=== PATIENT | male | born 1940 | race Hispanic/Latino ===

== ENCOUNTER 2016-07-16 21:16 | Inpatient (IN) | payer OTHER ==
[2016-07-17] MEDS: Insulin Detemir 100 units/ml Vial (Levemir) SC SCH ×3 (00:33→21:40)
[2016-07-17 00:52] VITALS: BMI 25.9
[2016-07-17] MEDS: Pantoprazole 40 mg EC Tab PO SCH (06:05)
[2016-07-17] MEDS: Levothyroxine 25 MCG TAB PO SCH (06:05)
[2016-07-17] MEDS: Insulin Lispro 1 UNITS/0.01 ML SC SCH ×3 (07:04→17:49)
[2016-07-17 07:52] LABS: ADD MANUAL DIFF? NO
[2016-07-17 07:57] LABS: BASO # 0.05 K/mm3 (0.0-2.0); BASO % 0.8 % (0.0-3.0); EOS # 0.1 (0.0-0.7); EOS % 1.2 % (1.5-5.0); GRAN # 4.23 (1.4-6.5); GRAN % 65.3 % (50.0-68.0); HEMATOCRIT 34.8 % (42.0-52.0); LYMPH # 1.2 (1.2-3.4); LYMPH % 18.7 % (22.0-35.0); MEAN CELL VOLUME 87.9 fL (80.0-105.0); MEAN CORPUSCULAR HEMOGLOBIN 29.3 pg (25.0-35.0); MEAN CORPUSCULAR HGB CONC 33.3 g/dl (31.0-37.0); MEAN PLATELET VOLUME 9.9 fl (7.0-11.0); MONO # 0.9 (0.1-0.6); PLATELET COUNT 436 10^3/uL (120.0-450.0); RED CELL DISTRIBUTION WIDTH 14.8 % (11.5-14.5); WHITE BLOOD COUNT 6.5 10^3/ul (4.5-11.0)
[2016-07-17 08:09] LABS: ALB/GLOB RATIO 0.8 (1.1-1.8); BILIRUBIN,TOTAL 1.3 mg/dL (0.2-1.3); CALCIUM 8.6 mg/dL (8.4-10.5); POTASSIUM 4.8 mmol/L (3.6-5.0); TOTAL PROTEIN 6.7 g/dL (5.8-8.3)
[2016-07-17 08:15] LABS: INR 1.75 (0.93-1.08)
[2016-07-17] MEDS: Multivitamin Therapeutic Tab PO SCH (09:01)
--- NOTE | 2016-07-17 09:51 | RAD ---
HISTORY: Pl. effusions s/p AVR/CABG COMPARISON: No prior. FINDINGS: LUNGS: No pulmonary infiltrate PLEURA: Small left pleural effusion. No evidence of right pleural effusion. No pneumothorax. CARDIOVASCULAR: Normal heart size. Status post CABG. Permanent pacemaker. No congestive change. OSSEOUS STRUCTURES: No significant abnormalities. VISUALIZED UPPER ABDOMEN: Normal. OTHER FINDINGS: None. IMPRESSION: Small left pleural effusion.
[2016-07-17] MEDS ORDERED: Morphine 2 mg/ml ISec IM PRN (10:00)
--- NOTE | 2016-07-17 12:36 | CARD ---
APPROVED REPORT EKG Measurement Heart [id number] <Conclusion> Sinus rhythm with 1st degree AV block Nonspecific intraventricular block Cannot rule out Anterior infarct, age undetermined Abnormal ECG
[2016-07-18] MEDS: Levothyroxine 25 MCG TAB PO SCH (05:16)
[2016-07-18] MEDS: Pantoprazole 40 mg EC Tab PO SCH (05:31)
[2016-07-18] MEDS: Insulin Detemir 100 units/ml Vial (Levemir) SC SCH ×2 (06:48→22:20)
[2016-07-18] MEDS: Insulin Lispro 1 UNITS/0.01 ML SC SCH ×2 (06:48→18:21)
--- NOTE | 2016-07-18 09:05 | HP ---
CHIEF COMPLAINT: Generalized weakness and deconditioning. HISTORY OF PRESENT ILLNESS: A 76-year-old male with history of coronary artery disease and severe aortic stenosis who was transferred from [facility] in [place] for treatment after recent coronary bypass surgery, transcatheter aortic valve replacement, and pacemaker placement 2 weeks ago. The patient is feeling better, but continues with generalized weakness and upper body pain related to his surgery. The patient experienced some exertional dyspnea. He denies any cough, fever, chest pain. PAST MEDICAL HISTORY: Coronary artery disease, severe aortic stenosis, episode of cardiac arrhythmia during hospitalization after surgery, type 2 diabetes mellitus, hypertension, chronic kidney disease stage III, solitary kidney. PAST SURGICAL HISTORY: Status post recent coronary bypass surgery, aortic valve replacement, and pacemaker placement. ALLERGIES: KNOWN ALLERGIES FOR CODEINE. CURRENT MEDICATIONS: Long-acting insulin, Levemir, and short-acting Humalog 3 times a day, Coumadin, ____ aspirin, metoprolol 25 mg twice a day, pantoprazole 40 mg daily, L-thyroxine 25 mcg daily, and multivitamins. FAMILY HISTORY: Noncontributory. SOCIAL HISTORY: The patient denies any history of smoking, alcohol, or any drug use. The patient is retired. He lives with family. He is independent of activity of daily living. REVIEW OF SYSTEMS: The patient denies any loss of appetite, weight loss, headache, or fever. He denies any dysphagia, sore throat, nasal congestion. He denies any cough, wheezing, but complains of exertional dyspnea and some anterior chest wall pain. He denies any heart palpitations. The patient denies any abdominal pain, nausea, vomiting, diarrhea. He has recent constipation. He has history of urinary retention, but currently is urinating with no problems. He denies any hematuria or flank pain. He denies any joint pains, joint swelling, or edema. He denies any headache, dizziness, weakness, or blurry vision. The patient complains of anxiety and difficulty of sleeping, but denies any depression or suicidal thoughts. PHYSICAL EXAMINATION: VITAL SIGNS: Stable with temperature this morning 99.7. His respiratory rate 18. His oxygen saturation was 92% on room air. GENERAL: He is comfortable in bed, alert, awake, oriented. HEAD: Normocephalic, atraumatic. EYES: Pupils reactive to light. Oral mucosa is moist. NECK: Supple. No neck masses. CHEST: With anterior chest wall scar healed, and left upper anterior chest bruising at the site of pacemaker. HEART: Regular rhythm and rate. ABDOMEN: Soft, nontender, nondistended. EXTREMITIES: With no edema. NEUROLOGIC: With no sensory or motor deficits. DIAGNOSTIC TESTS: This morning, CBC with WBC 6.5, hemoglobin 11.6, hematocrit 34.8. Chemistry with sodium 129, potassium 4.8. His BUN is 43 and creatinine 1.7. His glucose ranges between 150-300. His liver enzymes are slightly elevated with AST 91 and ALT 98. His TSH was 5.1. EKG showed sinus rhythm with first-degree AV block, nonspecific intraventricular block, and ST changes. Chest x-ray showed mild left pleural effusion. No evidence of right pleural effusion and normal heart size. No infiltrations. ASSESSMENT: 1. A 76-year-old male status post recent coronary bypass surgery, and recent aortic valve replacement and pacemaker placement, and admitted for rehabilitation. 2. Type 2 diabetes mellitus. 3. Chronic kidney disease, stage III. 4. Hypertension. 5. Hyponatremia. PLAN OF TREATMENT: The patient will be maintained on his chronic medication. We will monitor his glucose, maintain long-acting and short-acting insulin. The patient will be maintained on metoprolol, aspirin, and Coumadin. We will monitor his INRs daily. Advised fluid restriction to improve his sodium. We will continue rehabilitation with exercise daily. Abiola Sparks MD cc: [id number] TT: 07/18/2016 09:04:38 jn MTDD
[2016-07-18 09:19] LABS: INR 2.05 (0.93-1.08)
[2016-07-18 09:20] LABS: ALB/GLOB RATIO 0.8 (1.1-1.8); CALCIUM 9.1 mg/dL (8.4-10.5); POTASSIUM 4.4 mmol/L (3.6-5.0); TOTAL PROTEIN 7.2 g/dL (5.8-8.3)
[2016-07-18] MEDS: Multivitamin Therapeutic Tab PO SCH (10:53)
--- NOTE | 2016-07-18 13:12 | PN ---
DATE: 07/18/2016 SUBJECTIVE: The patient is seen sitting in a chair on the TCU. He is somnolent, but arousable. He states he is feeling better with improved stamina. CURRENT MEDICATIONS: Include aspirin, Colace, Coumadin, Flomax, insulin, metoprolol 25 mg b.i.d., Pr otonix, Synthroid and Xanax p.r.n. OBJECTIVE: GENERAL: He is an elderly man who appears comfortable at the present time. VITAL SIGNS: His blood pressure is 116/70. The pulse is 70. Respirations are 16. He is afebrile. HEENT: No JVD. CHEST: A few scattered rhonchi noted. Diminished breath sounds noted at the left base. HEART: PMI is in normal position with a systolic murmur at the left sternal border. ABDOMEN: Soft, nontender, normoactive bowel sounds. EXTREMITIES: No edema. DIAGNOSTIC DATA: Potassium 4.4, sodium is 131, BUN and creatinine are 47 and 1.7 with a glucose of 1 20. INR is 2.05. IMPRESSION: 1. Coronary artery disease and aortic stenosis, status post recent bypass surgery and aortic valve r eplacement. 2. Bradycardia-tachycardia syndrome, status post permanent pacemaker implant. 3. Paroxysmal atrial fibrillation. 4. Chronic renal insufficiency. 5. History of diabetes and hypertension. RECOMMENDATIONS: His current management should continue. Increased exercise is advisable. An INR o f between 2.0 and 3.0 is advised. We will continue to follow along and make further recommendations as appropriate. Mike Modi MD cc: [phone] TT: 07/18/2016 13:11:44 Confirmation # [id number] Dictation # [id number] sn
--- NOTE | 2016-07-18 17:26 | PN ---
DATE: 07/18/2016 The patient remains in transitional care unit. The patient is feeling better. He denies any chest pain. The patient is tolerating physical therapy. His appetite is good. He denies any abdominal pain. PHYSICAL EXAMINATION: VITAL SIGNS: The patient is afebrile, temperature 98.1, pulse 72, regular, blood pressure 117/71 and respiratory rate 18. GENERAL: He is comfortable, in reclining chair, alert, awake, oriented. HEENT: Head normocephalic, atraumatic. Oral mucosa is moist. NECK: Supple. LUNGS: With decreased breath sounds in left base, no rales or crackles. HEART: With regular rhythm and rate. ABDOMEN: Soft, nontender, nondistended. EXTREMITIES: With no edema. DIAGNOSTIC TESTS: CBC stable. Chemistry with improved sodium 131, potassium 4.4. Renal function is stable with BUN 47, creatinine 1.7. His glucose is fluctuating between 130 and 360. The patient has mildly elevated liver enzymes , AST 99 and ALT 120. ASSESSMENT: 1. Status post coronary bypass surgery, recent aortic valve replacement and pacemaker placement. Hemodynamically stable. 2. Type 2 diabetes mellitus. 3. Chronic kidney disease stage III. 4. Elevated liver enzymes, etiology uncertain, possibly due to medication. 5. Hyponatremia. PLAN OF TREATMENT: Continue physical therapy. Maintain Coumadin dose 4 mg daily. Will monitor his electrolytes and liver enzymes. Reviewed his medication. Abiola Sparks MD cc: [phone] TT: 07/18/2016 17:26:18 Confirmation # [id number] Dictation # [id number] en MTDD
[2016-07-19] MEDS: Levothyroxine 25 MCG TAB PO SCH (05:23)
[2016-07-19] MEDS: Pantoprazole 40 mg EC Tab PO SCH (05:24)
[2016-07-19] MEDS: Insulin Detemir 100 units/ml Vial (Levemir) SC SCH ×2 (06:34→22:55)
[2016-07-19 06:50] LABS: HEMATOCRIT 35.4 % (42.0-52.0); MEAN CELL VOLUME 89.4 fL (80.0-105.0); MEAN CORPUSCULAR HEMOGLOBIN 29.8 pg (25.0-35.0); MEAN CORPUSCULAR HGB CONC 33.3 g/dl (31.0-37.0); MEAN PLATELET VOLUME 9.8 fl (7.0-11.0); RED CELL DISTRIBUTION WIDTH 14.9 % (11.5-14.5); WHITE BLOOD COUNT 8.9 10^3/ul (4.5-11.0)
[2016-07-19 06:57] LABS: INR 2.31 (0.93-1.08)
--- NOTE | 2016-07-19 07:07 | CP.PCM.PN ---
Subjective - Date & Time of Evaluation Date of Evaluation: 07/17/16 Time of Evaluation: 07:00 - Subjective Subjective: Transferred from [facility] to TCU yesterday. S/P AVR/CABG 06/25/16. Multiple post-op complications. No sedated on TCU, got Xanax. at 6 AM V/S noted. PE: Lungs: decreased BS at bases Cor.: S1S2, sys. murmur Abd.: soft Ext.; no edema Neuro.: sedated but arousable Labs noted. Na + = 129, INR = 1.75, Cr.= 1.7, FSBS 140 Objective - Vital Signs/Intake and Output Vital Signs (last 24 hours): Temp Pulse Resp BP Pulse Ox 99.7 F H 73 18 148/75 07/17/16 00:34 07/17/16 08:38 07/17/16 00:34 07/17/16 08:38 Intake and Output: 07/17/16 07/17/16 06:59 18:59 Intake Total 120 Output Total 200 Balance -80 - Medications Medications: Current Medications Acetaminophen (Tylenol 325mg Tab) 650 mg PO Q6H PRN; Protocol PRN Reason: mild pain Alprazolam (Xanax) 0.25 mg PO BID PRN; Protocol PRN Reason: Anxiety Stop: 07/24/16 10:01 Last Admin: 07/17/16 06:05 Dose: 0.25 mg Aspirin (Aspirin Chewable) 81 mg PO 0800 GLEN PRN Reason: Protocol Last Admin: 07/17/16 08:37 Dose: 81 mg Cholecalciferol (Vitamin D) 1,000 iu PO DAILY GLEN PRN Reason: Protocol Docusate Sodium (Colace) 100 mg PO BID GLEN PRN Reason: Protocol Last Admin: 07/17/16 09:01 Dose: 100 mg Insulin Detemir (Levemir) 6 unit SC HS GLEN PRN Reason: Protocol Last Admin: 07/17/16 00:33 Dose: Not Given Insulin Detemir (Levemir) 8 unit SC ACB GLEN PRN Reason: Protocol Last Admin: 07/17/16 07:05 Dose: 8 unit Insulin Human Lispro (Humalog) 16 units SC AC GLEN PRN Reason: Protocol Last Admin: 07/17/16 07:04 Dose: 16 units Levothyroxine Sodium (Synthroid) 25 mcg PO 0600 GLEN PRN Reason: Protocol Last Admin: 07/17/16 06:05 Dose: 25 mcg Metoprolol Tartrate (Lopressor) 25 mg PO BRKDIN GLEN PRN Reason: Protocol Last Admin: 07/17/16 08:38 Dose: 25 mg Multivitamins (Thera Tab) 1 tab PO DAILY GLEN PRN Reason: Protocol Last Admin: 07/17/16 09:01 Dose: 1 tab Pantoprazole Sodium (Protonix Ec Tab) 40 mg PO 0630 GLEN PRN Reason: Protocol Last Admin: 07/17/16 06:05 Dose: 40 mg Tamsulosin HCl (Flomax) 0.4 mg PO DAILY GLEN PRN Reason: Protocol Last Admin: 07/17/16 09:01 Dose: 0.4 mg Warfarin Sodium (Coumadin) 4 mg PO 1800 GLEN PRN Reason: Protocol Warfarin Sodium (Coumadin) 5 mg PO ONCE ONE PRN Reason: Protocol Stop: 07/17/16 18:01 - Labs Labs: 07/17/16 07:30 07/17/16 07:30 PT 18.9 Seconds (9.9-11.8) H 07/17/16 07:30 INR 1.75 (0.93-1.08) H 07/17/16 07:30 Assessment and Plan - Assessment and Plan (Free Text) Plan: Assessment: S/P AVR/CABG 06/25/16 Post op complications included: PAF, ileus, Pl. Effusions, Acute on chronic kidney disease, Debilitated state, Thrombocytopenia, PPM for bill-tachy syn. CAD Diabetes Hypothyroidism Plan: Hold Xanax. OOB to chair as millicent/PT as millicent. Warfarin 5 mg. today. Monitor INR's Repeat labs, INR, Na+ in AM. Monitor BS's Port CXR today Will follow.
[2016-07-19 07:47] LABS: ALB/GLOB RATIO 0.8 (1.1-1.8); CALCIUM 8.9 mg/dL (8.4-10.5); TOTAL PROTEIN 6.8 g/dL (5.8-8.3)
[2016-07-19] MEDS: Insulin Lispro 1 UNITS/0.01 ML SC SCH ×3 (08:30→18:13)
--- NOTE | 2016-07-19 08:48 | CP.PCM.PN ---
Subjective - Date & Time of Evaluation Date of Evaluation: 07/19/16 Time of Evaluation: 07:00 - Subjective Subjective: Weak but he feels better. No SOB or CP. PT underway. V/S noted. PE: Lungs: decreased BS at bases Cor.: S1S2, sys. murmur Abd.: soft Ext.; no edema Neuro.: awake Labs noted. Na + = 133, INR = 2.31, Cr.= 1.7, abn. LFT's noted. CXR noted: small left pl. effusion. Objective - Vital Signs/Intake and Output Vital Signs (last 24 hours): Temp Pulse Resp BP Pulse Ox 98.3 F 62 18 107/62 94 L 07/18/16 16:00 07/18/16 18:24 07/18/16 16:00 07/18/16 18:24 07/18/16 06:00 - Medications Medications: Current Medications Acetaminophen (Tylenol 325mg Tab) 650 mg PO Q6H PRN; Protocol PRN Reason: mild pain Alprazolam (Xanax) 0.25 mg PO BID GLEN PRN Reason: Protocol Stop: 07/25/16 10:01 Last Admin: 07/18/16 18:25 Dose: Not Given Aspirin (Aspirin Chewable) 81 mg PO 0800 GLEN PRN Reason: Protocol Last Admin: 07/18/16 07:52 Dose: 81 mg Cholecalciferol (Vitamin D) 1,000 iu PO DAILY GLEN PRN Reason: Protocol Last Admin: 07/18/16 10:54 Dose: 1,000 iu Docusate Sodium (Colace) 100 mg PO BID GLEN PRN Reason: Protocol Last Admin: 07/18/16 18:20 Dose: 100 mg Insulin Detemir (Levemir) 6 unit SC HS GLEN PRN Reason: Protocol Last Admin: 07/18/16 22:20 Dose: 6 unit Insulin Detemir (Levemir) 8 unit SC ACB GLEN PRN Reason: Protocol Last Admin: 07/19/16 06:34 Dose: 8 unit Insulin Human Lispro (Humalog) 14 units SC AC GLEN PRN Reason: Protocol Last Admin: 07/18/16 18:21 Dose: 14 units Levothyroxine Sodium (Synthroid) 25 mcg PO 0600 GLEN PRN Reason: Protocol Last Admin: 07/19/16 05:23 Dose: 25 mcg Metoprolol Tartrate (Lopressor) 25 mg PO BRKDIN GLEN PRN Reason: Protocol Last Admin: 07/18/16 18:24 Dose: Not Given Morphine Sulfate (Morphine) 2 mg IM Q4H PRN PRN Reason: Pain, moderate (4-7) Multivitamins (Thera Tab) 1 tab PO DAILY GLEN PRN Reason: Protocol Last Admin: 07/18/16 10:53 Dose: 1 tab Pantoprazole Sodium (Protonix Ec Tab) 40 mg PO 0630 GLEN PRN Reason: Protocol Last Admin: 07/19/16 05:24 Dose: 40 mg Tamsulosin HCl (Flomax) 0.4 mg PO DAILY GLEN PRN Reason: Protocol Last Admin: 07/18/16 10:53 Dose: 0.4 mg Warfarin Sodium (Coumadin) 4 mg PO 1800 GLEN PRN Reason: Protocol Last Admin: 07/18/16 18:20 Dose: 4 mg - Labs Labs: 07/19/16 06:00 07/19/16 06:00 PT 24.9 Seconds (9.9-11.8) H 07/19/16 06:00 INR 2.31 (0.93-1.08) H 07/19/16 06:00 Assessment and Plan - Assessment and Plan (Free Text) Plan: Assessment: S/P AVR/CABG 06/25/16 Post op complications included: PAF, ileus, Pl. Effusions, Acute on chronic kidney disease, Debilitated state, Thrombocytopenia, PPM for bill-tachy syn. CAD Diabetes Hypothyroidism Abn. LFT's Plan: OOB/ PT as millicent. Warfarin 4 mg. today. Monitor INR's daily Monitor BS's Avoid Xanax use.
[2016-07-19] MEDS: Multivitamin Therapeutic Tab PO SCH (15:10)
--- NOTE | 2016-07-19 15:29 | US ---
HISTORY: elevated LFT, right upper abdominal pain COMPARISON: 01/27/2013. TECHNIQUE: Sonographic evaluation of the right upper quadrant of the abdomen. FINDINGS: LIVER: Measures 16.4 cm in length. Patent portal vein. Portal venous flow: Hepatopetal. Unremarkeable echogenicity of the liver parenchyma. No mass. No intrahepatic bile duct dilatation. GALLBLADDER: Status post cholecystectomy. No abnormality is seen in the gallbladder fossa. COMMON BILE DUCT: Measures 9.6 mm. No stones. No dilatation. PANCREAS: Unremarkable as visualized. No mass. No ductal dilatation. RIGHT KIDNEY: Not visualized. The right kidney was not seen on the prior study 01/27/2013. AORTA: No aneurysmal dilatation. IVC: Unremarkable. OTHER FINDINGS: Small right pleural effusion. IMPRESSION: No significant or acute findings to account for/ related to the clinical presentation.
--- NOTE | 2016-07-19 18:08 | PN ---
DATE: 07/19/2016 SUBJECTIVE: The patient remains in transitional care unit. He is feeling better. He has good appetite. He denies any chest pain or shortness of breath. Physical therapy in progress. Tolerating very well. PHYSICAL EXAMINATION: GENERAL: The patient is afebrile. VITAL SIGNS: Temperature is 98.7, pulse 73, respiratory rate 18, blood pressure 111/65. His oxygen saturation is 94% on room air. GENERAL: He is comfortable in bed, alert, awake, oriented. HEENT: Head is normocephalic, atraumatic. Oral mucosa is moist. NECK: Supple. LUNGS: With decreased breath sounds in the left base. No rales or crackles. HEART: Regular rhythm and rate. ABDOMEN: Soft, nontender, nondistended. EXTREMITIES: With no edema. LABORATORY DATA: Stable. CBC with WBC 8.9, hemoglobin 11.8. His chemistry significant for persistent increased elevation of liver enzymes with AST 116 and ALT 119. His renal function is stable with BUN 48 and creatinine 1.7. The patient's glucose fluctuates between 116 and 260. ASSESSMENT: 1. History of bypass surgery and aortic valve replacement, hemodynamically stable. 2. Type 2 diabetes mellitus. 3. Chronic kidney disease stage III. 4. Elevated liver enzymes. PLAN OF TREATMENT: Continue physical therapy, continue Coumadin 4 mg daily. We will order liver ultrasound for evaluation of liver and gallbladder area due to elevated LFTs, monitor closely. Abiola Sparks MD cc: [phone] TT: 07/19/2016 18:07:23 Confirmation # [id number] Dictation # [id number] ln MTDD
[2016-07-20] MEDS: Levothyroxine 25 MCG TAB PO SCH (05:27)
[2016-07-20] MEDS: Pantoprazole 40 mg EC Tab PO SCH (05:29)
[2016-07-20 06:24] LABS: CALCIUM 8.6 mg/dL (8.4-10.5); TOTAL PROTEIN 6.4 g/dL (5.8-8.3)
[2016-07-20 06:36] LABS: INR 2.42 (0.93-1.08)
[2016-07-20 06:37] LABS: ALB/GLOB RATIO 0.8 (1.1-1.8)
[2016-07-20] MEDS: Insulin Lispro 1 UNITS/0.01 ML SC SCH ×3 (06:42→18:21)
[2016-07-20] MEDS: Insulin Detemir 100 units/ml Vial (Levemir) SC SCH ×2 (06:43→21:48)
--- NOTE | 2016-07-20 07:58 | CP.PCM.PN ---
Subjective - Date & Time of Evaluation Date of Evaluation: 07/20/16 Time of Evaluation: 07:00 - Subjective Subjective: Doing well. + amb. and stairs yesterday. No SOB or CP. V/S noted. PE: Lungs: decreased BS at left base Cor.: S1S2, sys. murmur Abd.: soft Ext.; no edema Neuro.: awake Labs noted. Na + = 130, INR = 2.42, Cr.= 1.6 CXR noted: small left pl. effusion. GB U/S noted. No acute findings Objective - Vital Signs/Intake and Output Vital Signs (last 24 hours): Temp Pulse Resp BP Pulse Ox 98.5 F 83 20 122/73 94 L 07/20/16 06:00 07/20/16 06:00 07/20/16 06:00 07/20/16 06:00 07/19/16 10:00 Intake and Output: 07/20/16 07/20/16 06:59 18:59 Intake Total 240 Output Total 200 Balance 40 - Medications Medications: Current Medications Acetaminophen (Tylenol 325mg Tab) 650 mg PO Q6H PRN; Protocol PRN Reason: mild pain Last Admin: 07/20/16 05:26 Dose: 650 mg Alprazolam (Xanax) 0.25 mg PO AMHS GLEN PRN Reason: Protocol Stop: 07/26/16 10:01 Last Admin: 07/19/16 21:33 Dose: 0.25 mg Aspirin (Aspirin Chewable) 81 mg PO 0800 GLEN PRN Reason: Protocol Last Admin: 07/19/16 08:36 Dose: 81 mg Cholecalciferol (Vitamin D) 1,000 iu PO DAILY GLEN PRN Reason: Protocol Last Admin: 07/19/16 15:11 Dose: 1,000 iu Docusate Sodium (Colace) 100 mg PO BID GLEN PRN Reason: Protocol Last Admin: 07/19/16 18:11 Dose: 100 mg Insulin Detemir (Levemir) 6 unit SC HS GLEN PRN Reason: Protocol Last Admin: 07/19/16 22:55 Dose: 6 unit Insulin Detemir (Levemir) 8 unit SC ACB GLEN PRN Reason: Protocol Last Admin: 07/20/16 06:43 Dose: 8 unit Insulin Human Lispro (Humalog) 14 units SC AC GLEN PRN Reason: Protocol Last Admin: 07/20/16 06:42 Dose: 14 units Levothyroxine Sodium (Synthroid) 25 mcg PO 0600 GLEN PRN Reason: Protocol Last Admin: 07/20/16 05:27 Dose: 25 mcg Metoprolol Tartrate (Lopressor) 25 mg PO BRKDIN GLEN PRN Reason: Protocol Last Admin: 07/19/16 18:16 Dose: 25 mg Morphine Sulfate (Morphine) 2 mg IM Q4H PRN PRN Reason: Pain, moderate (4-7) Multivitamins (Thera Tab) 1 tab PO DAILY GLEN PRN Reason: Protocol Last Admin: 07/19/16 15:10 Dose: 1 tab Pantoprazole Sodium (Protonix Ec Tab) 40 mg PO 0630 GLEN PRN Reason: Protocol Last Admin: 07/20/16 05:29 Dose: 40 mg Tamsulosin HCl (Flomax) 0.4 mg PO DAILY GLEN PRN Reason: Protocol Last Admin: 07/19/16 15:08 Dose: 0.4 mg Warfarin Sodium (Coumadin) 4 mg PO 1800 GLEN PRN Reason: Protocol Last Admin: 07/19/16 18:11 Dose: 4 mg - Labs Labs: 07/19/16 06:00 07/20/16 05:45 PT 26.1 Seconds (9.9-11.8) H 07/20/16 05:45 INR 2.42 (0.93-1.08) H 07/20/16 05:45 Assessment and Plan - Assessment and Plan (Free Text) Plan: Assessment: S/P AVR/CABG 06/25/16 Post op complications included: PAF, ileus, Pl. Effusions, Acute on chronic kidney disease, Debilitated state, Thrombocytopenia, PPM for bill-tachy syn. CAD Diabetes Hypothyroidism Abn. LFT's Plan: OOB/ PT as millicent. Warfarin 4 mg. today. Monitor INR's daily Monitor BS's Avoid Xanax use.
[2016-07-20] MEDS: Multivitamin Therapeutic Tab PO SCH (09:34)
--- NOTE | 2016-07-20 20:57 | PN ---
DATE: 07/20/2016 SUBJECTIVE: The patient is in transitional care unit. He is doing well. He denies shortness of breath or chest pain. He has a good appetite. He is participating in physical therapy with good progress. PHYSICAL EXAMINATION: VITAL SIGNS: Stable, temperature 97.5, pulse 84, regular; blood pressure 130/75 , respiratory rate 20. GENERAL: Comfortable in bed. Alert, awake, oriented. HEAD: Normocephalic, atraumatic. NECK: Supple. LUNGS: With decreased breath sounds in the left base. HEART: Regular rhythm and rate. ABDOMEN: Soft, nontender, nondistended. Bowel sounds are positive. EXTREMITIES: With no edema. LABORATORY DATA: INR is therapeutic at 2.4 this morning. CBC is stable. His chemistry is also improving with sodium 130, his potassium is 5. His renal function is slightly improved with BUN 39 and creatinine 1.6. Liver enzymes are trending down. His glucose is ranging between 116 and 306. Abdominal ultrasound was negative for any liver or common bile duct pathology. ASSESSMENT: 1. History of aortic valve replacement and pacemaker placement. History of tachybrady syndrome. Currently, hemodynamically stable. 2. Type 2 diabetes mellitus. 3. Stage III chronic kidney disease. 4. Elevated liver enzymes. PLAN OF TREATMENT: Continue close monitoring of his electrolytes and liver enzymes. Continue present therapy. Encouraged ambulation. Abiola Sparks MD cc: [phone] TT: 07/20/2016 20:56:53 Confirmation # [id number] Dictation # [id number] RIVAS
[2016-07-21] MEDS: Pantoprazole 40 mg EC Tab PO SCH (05:25)
[2016-07-21] MEDS: Levothyroxine 25 MCG TAB PO SCH (05:25)
[2016-07-21] MEDS: Insulin Detemir 100 units/ml Vial (Levemir) SC SCH ×2 (06:45→22:08)
[2016-07-21] MEDS: Insulin Lispro 1 UNITS/0.01 ML SC SCH ×3 (06:46→17:20)
--- NOTE | 2016-07-21 07:07 | CP.PCM.PN ---
Subjective - Date & Time of Evaluation Date of Evaluation: 07/21/16 Time of Evaluation: 07:00 - Subjective Subjective: Doing well. + amb. and stairs yesterday. No SOB or CP. He feels well. V/S noted. PE: Lungs: decreased BS at left base Cor.: S1S2, sys. murmur Abd.: soft Ext.; no edema Neuro.: awake Labs 07/20 noted. Na + = 130, INR = 2.42, Cr.= 1.6. Today's labs pending. CXR noted: small left pl. effusion. GB U/S noted. No acute findings Objective - Vital Signs/Intake and Output Vital Signs (last 24 hours): Temp Pulse Resp BP Pulse Ox 97.5 F L 84 15 130/75 94 L 07/20/16 16:00 07/20/16 18:22 07/20/16 16:00 07/20/16 18:22 07/20/16 16:00 - Medications Medications: Current Medications Acetaminophen (Tylenol 325mg Tab) 650 mg PO Q6H PRN; Protocol PRN Reason: mild pain Last Admin: 07/20/16 05:26 Dose: 650 mg Alprazolam (Xanax) 0.25 mg PO AMHS GLEN PRN Reason: Protocol Stop: 07/26/16 10:01 Last Admin: 07/20/16 21:51 Dose: 0.25 mg Aspirin (Aspirin Chewable) 81 mg PO 0800 GLEN PRN Reason: Protocol Last Admin: 07/20/16 09:32 Dose: 81 mg Cholecalciferol (Vitamin D) 1,000 iu PO DAILY GLEN PRN Reason: Protocol Last Admin: 07/20/16 09:34 Dose: 1,000 iu Docusate Sodium (Colace) 100 mg PO BID GLEN PRN Reason: Protocol Last Admin: 07/20/16 18:19 Dose: 100 mg Insulin Detemir (Levemir) 6 unit SC HS GLEN PRN Reason: Protocol Last Admin: 07/20/16 21:48 Dose: 6 unit Insulin Detemir (Levemir) 8 unit SC ACB GLEN PRN Reason: Protocol Last Admin: 07/21/16 06:45 Dose: 8 unit Insulin Human Lispro (Humalog) 14 units SC AC GLEN PRN Reason: Protocol Last Admin: 07/21/16 06:46 Dose: 14 units Levothyroxine Sodium (Synthroid) 25 mcg PO 0600 GLEN PRN Reason: Protocol Last Admin: 07/21/16 05:25 Dose: 25 mcg Metoprolol Tartrate (Lopressor) 25 mg PO BRKDIN GLEN PRN Reason: Protocol Last Admin: 07/20/16 18:22 Dose: 25 mg Multivitamins (Thera Tab) 1 tab PO DAILY GLEN PRN Reason: Protocol Last Admin: 07/20/16 09:34 Dose: 1 tab Pantoprazole Sodium (Protonix Ec Tab) 40 mg PO 0630 GLEN PRN Reason: Protocol Last Admin: 07/21/16 05:25 Dose: 40 mg Tamsulosin HCl (Flomax) 0.4 mg PO DAILY GLEN PRN Reason: Protocol Last Admin: 07/20/16 09:33 Dose: 0.4 mg Warfarin Sodium (Coumadin) 4 mg PO 1800 GLEN PRN Reason: Protocol Last Admin: 07/20/16 18:20 Dose: 4 mg - Labs Labs: 07/19/16 06:00 07/20/16 05:45 PT 26.1 Seconds (9.9-11.8) H 07/20/16 05:45 INR 2.42 (0.93-1.08) H 07/20/16 05:45 Assessment and Plan - Assessment and Plan (Free Text) Plan: Assessment: S/P AVR/CABG 06/25/16 Post op complications included: PAF, ileus, Pl. Effusions, Acute on chronic kidney disease, Debilitated state, Thrombocytopenia, PPM for bill-tachy syn. CAD Diabetes Hypothyroidism Abn. LFT's Plan: OOB/ PT/Rehab efforts Awat AM labs. Monitor BS's Avoid Xanax use.
[2016-07-21] MEDS: Multivitamin Therapeutic Tab PO SCH (10:30)
--- NOTE | 2016-07-21 22:37 | PN ---
DATE: 07/21/2016 This is a 76-year-old Albanian female that does not speak much Portuguese and was transferred to the trans itional care unit from [facility] where he had coronary bypass surgery, transcatheter aortic valve replacement and pacemaker placement about 2 weeks ago and had a readmission secondary t o postoperative complications. He was feeling better this morning and he offers no complaint, smiles and shows us how well he can walk as we walk into the room. We reviewed the chart from Dr. House as we are covering for her this weekend and we note that he had complained of some generalized weakn ess in the upper body, but today he has nothing of the type. He does not present with any dyspnea; i n fact, he is very anxious to show us how well he can walk and he is ready to go as the physical fitness trainer apist come into the room. We asked him about the use of his bedside incentive spirometry and he uses but needs better instructions, so we will hope that the pulmonary therapist can come back and reinst ruct him and do some observation to give him some better pointer. PAST MEDICAL HISTORY: Is remarkable for CAD with aortic stenosis and the reason why he needed the va lve replacement. He had comorbid type 2 diabetes mellitus, hypertension, and stage III chronic kidne y disease; as we understand he has a single kidney. ALLERGIES: CODEINE. CURRENT MEDICATIONS: Reviewed and Coumadin at 4 mg appears to be controlling well his coagulation an d offers again no complaints. We follow Dr. Self's earlier visit this morning and note that like us he did not see any signs of w eakness. The patient again offers no complaints and he has no request for anything special today. Padma eric seems to be tolerating his diet well. PHYSICAL EXAMINATION: VITAL SIGNS: Temperature 98.7, pulse rate 74, blood pressure 130/72, respiratory rate of 18, O2 sat is 94%, but he is not showing any problems with his breathing at this level. His glycemia was fluctu ating yesterday and we will need to keep an eye on it today. GENERAL: He is pleasant, answers appropriately, but limited with the language. HEENT: Pupils are equally round and reactive to light and accommodation. Extraocular movement is in tact. Oral mucosa is free of thrush. No lesions. Nares are clear. No rhinorrhea. NECK: Supple, no bruit appreciated. No cervical lymphadenopathy. No thyromegaly. LUNGS: Clear to auscultation and percussion. HEART: Regular in rhythm today. No S3 appreciated, and we hear no murmur. S1 and S2 appear to be n ormal. ABDOMEN: Soft, bowel sounds are present. No palpable masses, no rebound. EXTREMITIES: Have full range of motion. No edema. No labs were drawn this morning. IMPRESSION: 1. Status post valvular replacement and underlying coronary artery disease. 2. Type 2 diabetes mellitus. 3. Hypertension. PLAN OF CARE: As directed through Dr. Self. We will monitor his liver enzymes that had been off a bit in the history we follow. I encouraged him to do more incentive spirometry to prevent atelectas is. The patient climbed the stairs yesterday on physical therapy and really seems to be doing quite well. Jomar Sparks MD cc: [id number] TT: 07/21/2016 22:36:46 Confirmation # [id number] Dictation # [id number] jovan
[2016-07-22] MEDS: Levothyroxine 25 MCG TAB PO SCH (05:27)
[2016-07-22] MEDS: Pantoprazole 40 mg EC Tab PO SCH (05:30)
[2016-07-22 06:15] VITALS: O2SAT 93
[2016-07-22] MEDS: Insulin Lispro 1 UNITS/0.01 ML SC SCH ×3 (06:39→17:51)
[2016-07-22] MEDS: Insulin Detemir 100 units/ml Vial (Levemir) SC SCH ×2 (06:40→21:45)
--- NOTE | 2016-07-22 07:21 | CP.PCM.PN ---
Subjective - Date & Time of Evaluation Date of Evaluation: 07/22/16 Time of Evaluation: 07:00 - Subjective Subjective: Doing well. + amb. and stairs yesterday. No SOB or CP. + abd pain yesterday. He feels well. V/S noted. PE: Lungs: decreased BS at left base Cor.: S1S2, sys. murmur Abd.: soft Ext.; no edema Neuro.: awake Labs 07/21 noted. Na + = 130, INR = 2.42, Cr.= 1.6. Today's labs pending. CXR noted: small left pl. effusion. GB U/S noted. No acute findings Objective - Vital Signs/Intake and Output Vital Signs (last 24 hours): Temp Pulse Resp BP Pulse Ox 98.5 F 77 18 151/86 H 93 L 07/22/16 06:00 07/22/16 06:00 07/22/16 06:00 07/22/16 06:00 07/22/16 06:00 Intake and Output: 07/22/16 07/22/16 06:59 18:59 Intake Total 120 Balance 120 - Medications Medications: Current Medications Acetaminophen (Tylenol 325mg Tab) 650 mg PO Q6H PRN; Protocol PRN Reason: mild pain Last Admin: 07/20/16 05:26 Dose: 650 mg Alprazolam (Xanax) 0.25 mg PO AMHS GELN PRN Reason: Protocol Stop: 07/26/16 10:01 Last Admin: 07/21/16 21:19 Dose: 0.25 mg Aspirin (Aspirin Chewable) 81 mg PO 0800 GLEN PRN Reason: Protocol Last Admin: 07/21/16 08:27 Dose: 81 mg Cholecalciferol (Vitamin D) 1,000 iu PO DAILY GLEN PRN Reason: Protocol Last Admin: 07/21/16 10:31 Dose: 1,000 iu Docusate Sodium (Colace) 100 mg PO BID GLEN PRN Reason: Protocol Last Admin: 07/21/16 17:22 Dose: 100 mg Insulin Detemir (Levemir) 6 unit SC HS GLEN PRN Reason: Protocol Last Admin: 07/21/16 22:08 Dose: 6 unit Insulin Detemir (Levemir) 8 unit SC ACB GLEN PRN Reason: Protocol Last Admin: 07/22/16 06:40 Dose: 8 unit Insulin Human Lispro (Humalog) 14 units SC AC GLEN PRN Reason: Protocol Last Admin: 07/22/16 06:39 Dose: 14 units Levothyroxine Sodium (Synthroid) 25 mcg PO 0600 GLEN PRN Reason: Protocol Last Admin: 07/22/16 05:27 Dose: 25 mcg Metoprolol Tartrate (Lopressor) 25 mg PO BRKDIN GLEN PRN Reason: Protocol Last Admin: 07/21/16 17:21 Dose: 25 mg Multivitamins (Thera Tab) 1 tab PO DAILY GLEN PRN Reason: Protocol Last Admin: 07/21/16 10:30 Dose: 1 tab Pantoprazole Sodium (Protonix Ec Tab) 40 mg PO 0630 GLEN PRN Reason: Protocol Last Admin: 07/22/16 05:30 Dose: 40 mg Tamsulosin HCl (Flomax) 0.4 mg PO DAILY GLEN PRN Reason: Protocol Last Admin: 07/21/16 10:30 Dose: 0.4 mg Warfarin Sodium (Coumadin) 4 mg PO 1800 GLEN PRN Reason: Protocol Last Admin: 07/21/16 17:23 Dose: 4 mg - Labs Labs: 07/19/16 06:00 07/20/16 05:45 PT 26.1 Seconds (9.9-11.8) H 07/20/16 05:45 INR 2.42 (0.93-1.08) H 07/20/16 05:45 Assessment and Plan - Assessment and Plan (Free Text) Plan: Assessment: S/P AVR/CABG 06/25/16 Post op complications included: PAF, ileus, Pl. Effusions, Acute on chronic kidney disease, Debilitated state, Thrombocytopenia, PPM for bill-tachy syn. CAD Diabetes Hypothyroidism Abn. LFT's Plan: OOB/ PT/Rehab efforts Awat AM labs. Monitor BS's Avoid Xanax use. Home soon with out-pt. F/U.
[2016-07-22 08:10] LABS: ALB/GLOB RATIO 0.8 (1.1-1.8); CALCIUM 9.3 mg/dL (8.4-10.5); POTASSIUM 5.1 mmol/L (3.6-5.0); TOTAL PROTEIN 7.2 g/dL (5.8-8.3)
[2016-07-22] MEDS: Multivitamin Therapeutic Tab PO SCH (10:45)
--- NOTE | 2016-07-22 15:17 | PN ---
DATE: 07/22/2016 This is a 76-year-old male who was transferred here from [facility] where he had unde rwent coronary bypass surgery and transcatheter aortic valve replacement and pacemaker placement appr oximately 2 weeks ago. The patient had developed some postoperative complications and was subsequent ly, when stabilized, transferred here to [facility] for rehabilitation at the [facility] care unit. He offers no complaint, speaks little Palestinian, but is an excellent compliant patient as we had yesterday discussed with him through sign language or other ways to encourage the use of steffen ntive spirometry and he was doing that just as we asked when we walked in this morning. We have seen him ambulate through the ricardo with the physical therapist and we are encouraged. We are not sure he can quite manage stairs yet, but he really does seem to be having an unremarkable recovery period. As reviewed from the notes, being followed with Dr. Self. He had prior history of coronary artery disease and severe aortic stenosis resulting in the needed valvular replacement, type 2 diabetes bacilio itus, hypertension, stage III chronic kidney disease and a solitary kidney. He is as communicative a s he can be with Palestinian being his second language and no events noted from yesterday. His medicatio ns for his diabetes will probably need to be adjusted as he has consistently been in the 200s on the glucose monitoring assessments. As we were finishing our visit, his daughter stepped in this morning and her concern was that he not be kept extra time since she is quite worried about the insurance co verage. We reassured her that this is all being managed through the social science analyst and we anticipate discharge in another 2 days as we were told that that is what the approval was and at present, see no need to extend the stay, but we will see as he continues. Again, he is an excellent participatory p atient with his rehab and does seem to listen to us. PHYSICAL EXAMINATION: GENERAL: He appears to be oriented to all spheres this morning. VITAL SIGNS: Temperature is 98.5, pulse rate is 77, blood pressure is 151/86, the O2 sat is listed a s 93% with a respiratory rate of 18. As mentioned before, the fingerstick on his glucose has been re latively elevated and over the 200s. He is consuming all of his meals. SKIN: Turgor is adequate. HEENT: Conjunctivae are pink. Oral mucosa is moist. NECK: No cervical bruit. No cervical lymphadenopathy. HEART: Regular in rhythm. No S3 appreciated. LUNGS: Clear to auscultation and percussion. ABDOMEN: Soft, bowel sounds are present and he is having daily BMs as he reports. EXTREMITIES: Have full range of motion, no neurological deficits, no edema. He is ambulatory with a walker. IMPRESSION: History of recent coronary artery bypass graft with aortic valve replacement, continues stable, type 2 diabetes mellitus, uncontrolled, chronic kidney disease stage III and remarkable how h is liver enzymes, although are trending down, we have asked Dr. Whitfield to view because the recent g sadie-glutamyl transferase does show an elevation and perhaps it would be best to have this evaluation as an inpatient rather than once after he goes home, not sure of the etiology of the elevated liver enzymes, they have not normalized, but as mentioned before, are trending down. PLAN OF CARE: Continue his rehab, encourage participation, incentive spirometry and follow directive s from Dr. Self and hopefully from Dr. Whitfield after he reviews the case. Jomar Sparks MD cc: [id number] TT: 07/22/2016 15:17:00 Confirmation # [id number] Dictation # [id number] en
[2016-07-23] MEDS: Pantoprazole 40 mg EC Tab PO SCH (05:32)
[2016-07-23] MEDS: Levothyroxine 25 MCG TAB PO SCH (05:33)
[2016-07-23 06:00] VITALS: BP 138/85; PULSE 77; RESP 16; TEMP 99
[2016-07-23] MEDS: Insulin Lispro 1 UNITS/0.01 ML SC SCH ×2 (06:30→12:46)
[2016-07-23] MEDS: Insulin Detemir 100 units/ml Vial (Levemir) SC SCH (06:30)
--- NOTE | 2016-07-23 07:19 | CP.PCM.PN ---
Subjective - Date & Time of Evaluation Date of Evaluation: 07/23/16 Time of Evaluation: 07:00 - Subjective Subjective: Doing well. + amb. yesterday. No SOB or CP. He feels well. Family wants to take him home today. V/S noted. PE: Lungs: decreased BS at left base Cor.: S1S2, sys. murmur Abd.: soft Ext.; no edema Neuro.: awake Labs 07/22 noted. K+= 5.1, Cr.= 1.5, Abn LFT's noted. INR pending. CXR noted: small left pl. effusion. GB U/S noted. No acute findings Objective - Vital Signs/Intake and Output Vital Signs (last 24 hours): Temp Pulse Resp BP Pulse Ox 99 F 77 16 138/85 93 L 07/23/16 05:59 07/23/16 05:59 07/23/16 05:59 07/23/16 05:59 07/23/16 05:59 - Medications Medications: Current Medications Acetaminophen (Tylenol 325mg Tab) 650 mg PO Q6H PRN; Protocol PRN Reason: mild pain Last Admin: 07/20/16 05:26 Dose: 650 mg Alprazolam (Xanax) 0.25 mg PO AMHS GLEN PRN Reason: Protocol Stop: 07/26/16 10:01 Last Admin: 07/22/16 21:45 Dose: 0.25 mg Aspirin (Aspirin Chewable) 81 mg PO 0800 GLEN PRN Reason: Protocol Last Admin: 07/22/16 08:05 Dose: 81 mg Cholecalciferol (Vitamin D) 1,000 iu PO DAILY GLEN PRN Reason: Protocol Last Admin: 07/22/16 10:45 Dose: 1,000 iu Docusate Sodium (Colace) 100 mg PO BID GLEN PRN Reason: Protocol Last Admin: 07/22/16 17:53 Dose: Not Given Insulin Detemir (Levemir) 6 unit SC HS GLEN PRN Reason: Protocol Last Admin: 07/22/16 21:45 Dose: 6 unit Insulin Detemir (Levemir) 8 unit SC ACB GLEN PRN Reason: Protocol Last Admin: 07/23/16 06:30 Dose: 8 unit Insulin Human Lispro (Humalog) 14 units SC AC GLEN PRN Reason: Protocol Last Admin: 07/23/16 06:30 Dose: 14 units Levothyroxine Sodium (Synthroid) 25 mcg PO 0600 GLEN PRN Reason: Protocol Last Admin: 07/23/16 05:33 Dose: 25 mcg Metoprolol Tartrate (Lopressor) 25 mg PO BRKDIN GLEN PRN Reason: Protocol Last Admin: 07/22/16 17:52 Dose: 25 mg Multivitamins (Thera Tab) 1 tab PO DAILY GLEN PRN Reason: Protocol Last Admin: 07/22/16 10:45 Dose: 1 tab Pantoprazole Sodium (Protonix Ec Tab) 40 mg PO 0630 GLEN PRN Reason: Protocol Last Admin: 07/23/16 05:32 Dose: 40 mg Tamsulosin HCl (Flomax) 0.4 mg PO DAILY GLEN PRN Reason: Protocol Last Admin: 07/22/16 10:45 Dose: 0.4 mg Warfarin Sodium (Coumadin) 4 mg PO 1800 GLEN PRN Reason: Protocol Last Admin: 07/22/16 17:53 Dose: 4 mg - Labs Labs: 07/19/16 06:00 07/22/16 07:47 PT 26.1 Seconds (9.9-11.8) H 07/20/16 05:45 INR 2.42 (0.93-1.08) H 07/20/16 05:45 Assessment and Plan - Assessment and Plan (Free Text) Plan: Assessment: S/P AVR/CABG 06/25/16 Post op complications included: PAF, ileus, Pl. Effusions, Acute on chronic kidney disease, Debilitated state, Thrombocytopenia, PPM for bill-tachy syn. CAD Diabetes Hypothyroidism Abn. LFT's Plan: OOB/ PT/Rehab efforts Await INR Monitor BS's GI evaluation. Home soon with out-pt. F/U. OK for D/C home today if OK with Dr. Sparks/Lacy. Will arrange out-pt cardiac f/u.
[2016-07-23] MEDS: Multivitamin Therapeutic Tab PO SCH (11:00)
[2016-07-23 11:53] LABS: INR 2.23 (0.93-1.08)
--- NOTE | 2016-07-23 18:34 | DS ---
This is a 76-year-old male who was transferred here from the acute setting at [facility] where he underwent coronary artery bypass and aortic valve replacement done by transcatheter and subsequent pacemaker placement approximately 3 weeks ago. He was feeling better, but because of the generalized weakness and postoperative complications it was considered and recommended by his cardiol ogist to continue transitional care in this unit as a subacute. The patient had no complaints during his stay even though he arrived with some exertional dyspnea and no cough, fever, or chest pain duri ng his stay. Medical history was remarkable for CAD, severe now with a valve, episode of arrhythm ia during the hospitalization reason probably for his defib in place; type 2 diabetes mellitus not ve ry well controlled, hypertension, CKD stage III and a solitary kidney. The surgical history should b e noted as recent coronary CABG, aortic valve replacement, transcatheter, and pacemaker placement. W e have only ALLERGIES TO CODEINE as his discharge allergies. His admission and discharge medications were different. He has been managed with the help of Dr. Self and as no adjustment was made, we w ill continue with this after having had clearance from him earlier on this morning. He does not admi t to any smoking or alcohol in the past. He is retired and lives with family and has always been ind ependent with the activities of daily living; however, language barrier is present. He has been an e xemplary patient during this stay with me. I only was managing him for the past 3 days and all I had to do was ask and the next day he was involved in whatever suggestions we had. We focused on his us e of the incentive spirometry to prevent any atelectasis given that would be his Achilles point and r amy did well. The daughter was involved and very cooperative and is asking for permission for him to bathe as he has not had a shower in over 2 weeks. We are not certain as to why this was prescribe d, but we assure her that his wounds by now healed, so she may give him a shower, perhaps not bath, b ut a shower and continue his care. He is comfortable this morning and will continue his already pres cribed medications. Gallbladder sonogram done as an inpatient because of some abnormal liver enzymes had no significant findings. There was no aneurysmal dilatation noted on the abdominal sonogram and as expected the right kidney was not visualized as we understand he only has one. The pancreas was unremarkable. His gallbladder showed post-cholecystectomy and liver parenchyma showed unremarkable e chogenicity. His chemistry had not only showed persistently elevated glucose, but abnormal liver enz ymes with a last noted GGT of 99, an AST of 77, an ALT of 112, and an alk phos of 135 at which time w e contacted for a consult with Dr. Whitfield and his lipase was 503, but nothing else was recommended, so since we have Dr. Self's approval for his discharge, the daughter would prefer to have the GI c onsult with Dr. Whitfield as an outpatient, so we will endorse this to the patient to Dr. Arnulfo kc tomorrow. He is being discharged on the medications that he has been on: Aspirin 81 mg once a day, docusate so dium 100 mg twice a day, warfarin 4 mg once a day, tamsulosin 0.4 once a day. His Humalog is to be g iven 14 units before meals. His Levemir is to be given 6 units at bedtime, 8 units before breakfast. Metoprolol tartrate at 25 twice a day, pantoprazole, Protonix once a day, levothyroxine at a reduce d dose of 25, multivitamins, vitamin D 1000 units daily and he may resume his alprazolam 0.25 twice a day. He is in fair shape for the discharge as the daughter would prefer to have him home rather than [facility] until tomorrow, we would have preferred the extra day as he needs to have set up home visiting nurs e and they perhaps can guide us better as to what else he needs at home. He has been given a prescri ption for a rollator and he has been given a prescription for a shower chair. Diet, he is to resume his low cholesterol, cardiac diet. No changes on it. Dr. Self has also instructed him a followup is due with him. We did slip for labs before his visit to Dr. Sparks on Saturday and have nikki justin electronically prescribed his medication. Jomar Sparks MD cc: [id number] TT: 07/23/2016 18:33:33 mn
== END 2016-07-23 17:40 | disposition home health service (06) | DRG 945 ==
LOC: TRCU 21:16
PROVIDERS: ADMIT Family Medicine; ATTEND Family Medicine
PROC: F07Z9ZZ Gait Training/Functional Ambulation Treatment (ICD-10-PCS; principal; 2016-07-17)
PROC: F08Z4ZZ Home Management Treatment (ICD-10-PCS; 2016-07-18)
DX: R53.1 Weakness (principal); I35.0 Nonrheumatic aortic (valve) stenosis; I25.10 Atherosclerotic heart disease of native coronary artery without angina pectoris; I49.5 Sick sinus syndrome; E11.22 Type 2 diabetes mellitus with diabetic chronic kidney disease; N18.3 Chronic kidney disease, stage 3 (moderate); I12.9 Hypertensive chronic kidney disease with stage 1 through stage 4 chronic kidney disease, or unspecified chronic kidney disease; E11.65 Type 2 diabetes mellitus with hyperglycemia; E87.1 Hypo-osmolality and hyponatremia; I48.0 Paroxysmal atrial fibrillation; D69.6 Thrombocytopenia, unspecified; E03.9 Hypothyroidism, unspecified; Q60.0 Renal agenesis, unilateral; Z95.2 Presence of prosthetic heart valve; Z95.0 Presence of cardiac pacemaker; Z95.1 Presence of aortocoronary bypass graft

== ENCOUNTER 2016-08-15 13:44 | Inpatient (IN) | payer OTHER ==
[2016-08-15 17:45] VITALS: BMI 24.1
[2016-08-15] MEDS ORDERED: Pneumococcal 23-Valent Vaccine IM ONE (17:46)
[2016-08-15] MEDS ORDERED: Insulin Detemir 100 units/ml Vial (Levemir) SC SCH (22:00)
[2016-08-16] MEDS: Pantoprazole 40 mg EC Tab PO SCH (06:13)
[2016-08-16] MEDS: Levothyroxine 25 MCG TAB PO SCH (06:13)
[2016-08-16] MEDS: Insulin Lispro 1 UNITS/0.01 ML SC SCH ×4 (06:45→17:42)
[2016-08-16] MEDS ORDERED: Insulin Detemir 100 units/ml Vial (Levemir) SC SCH (07:30)
--- NOTE | 2016-08-16 09:03 | CP.PCM.PN ---
Subjective - Date & Time of Evaluation Date of Evaluation: 08/16/16 Time of Evaluation: 07:00 - Subjective Subjective: Transfer from [facility] yesterday afternoon. No CP or SOB. Weak. V/S noted. PE: Lungs clear Cor.: S1S2 Abd.: soft Ext.: + edema Neuro.; alert Objective - Vital Signs/Intake and Output Vital Signs (last 24 hours): Temp Pulse Resp BP Pulse Ox 98.3 F 70 18 144/76 97 08/15/16 17:33 08/15/16 22:14 08/15/16 17:33 08/15/16 22:14 08/15/16 16:43 - Medications Medications: Current Medications Alprazolam (Xanax) 0.25 mg PO AMHS GLEN PRN Reason: Protocol Stop: 08/22/16 22:01 Last Admin: 08/15/16 22:15 Dose: 0.25 mg Amiodarone HCl (Cordarone) 200 mg PO BID GLEN Aspirin (Aspirin Chewable) 81 mg PO DAILY [facility] Digoxin (Lanoxin) 0.125 mg PO 1400 GLEN Furosemide (Lasix) 40 mg PO DAILY GLEN Insulin Detemir (Levemir) 8 unit SC AC GLEN PRN Reason: Protocol Insulin Detemir (Levemir) 6 unit SC HS GLEN PRN Reason: Protocol Last Admin: 08/15/16 22:13 Dose: 6 unit Insulin Human Lispro (Humalog) 16 units SC AC GLEN PRN Reason: Protocol Last Admin: 08/16/16 08:06 Dose: 16 units Levothyroxine Sodium (Synthroid) 25 mcg PO 0600 GLEN PRN Reason: Protocol Last Admin: 08/16/16 06:13 Dose: 25 mcg Metoprolol Tartrate (Lopressor) 50 mg PO BID GLEN PRN Reason: Protocol Pantoprazole Sodium (Protonix Ec Tab) 40 mg PO 0600 GLEN PRN Reason: Protocol Last Admin: 08/16/16 06:13 Dose: 40 mg Potassium Chloride (K-Dur 20 Meq Er Tab) 20 meq PO DAILY GLEN Tamsulosin HCl (Flomax) 0.4 mg PO DAILY [facility] Assessment and Plan - Assessment and Plan (Free Text) Assessment: S/P retroperitoneal bleed and UTI S/P AVR/CABG 06/25/16 with multiple post-op complicatios: PAF, Dao-Tachy, PPM, ileus, Pleural effusions, Acute on chronic kidney disease, Debilitated state CAD Diabetes Hypothyroidism Abnormal LFT's Plan: Continue current cardiac meds Check urine C+S OOB/Chair/PT/rehab efforts Check CMP, Dig. level Will follow
[2016-08-16 09:46] LABS: HEMATOCRIT 30.1 % (42.0-52.0); MEAN CELL VOLUME 88.8 fL (80.0-105.0); MEAN CORPUSCULAR HEMOGLOBIN 29.5 pg (25.0-35.0); MEAN CORPUSCULAR HGB CONC 33.2 g/dl (31.0-37.0); MEAN PLATELET VOLUME 8.8 fl (7.0-11.0); RED CELL DISTRIBUTION WIDTH 17.9 % (11.5-14.5); WHITE BLOOD COUNT 9.8 10^3/ul (4.5-11.0)
[2016-08-16 09:55] LABS: ALB/GLOB RATIO 0.6 (1.1-1.8); BILIRUBIN,TOTAL 1.9 mg/dL (0.2-1.3); CALCIUM 8.7 mg/dL (8.4-10.5); POTASSIUM 3.8 mmol/L (3.6-5.0); TOTAL PROTEIN 6.6 g/dL (5.8-8.3)
[2016-08-16] MEDS: Potassium Chloride 20 mEq ER Tab PO SCH (11:13)
[2016-08-16] MEDS: Digoxin 125 mcg (0.125 mg) Tab PO SCH (14:39)
[2016-08-16] MEDS: Insulin Detemir 100 units/ml Vial (Levemir) SC SCH ×2 (17:30→22:49)
--- NOTE | 2016-08-16 22:41 | HP ---
CHIEF COMPLAINT: Fatigue and weakness, generalized deconditioning. HISTORY OF PRESENT ILLNESS: A 76-year-old male with history of aortic valve replacement and bypass s urgery in 06/2016, who was hospitalized again for urosepsis and retroperitoneal bleeding, who was tra nsferred from [facility] for further treatment and rehabilitation. The patient was h ospitalized and treated with IV antibiotics. His Coumadin treatment was stopped due to bleeding and was treated conservatively just with observation. The patient denies any abdominal pain, complaining of generalized weakness and lower leg edema. PAST MEDICAL HISTORY: History of aortic stenosis, coronary artery disease, type 2 diabetes mellitus, chronic and acute kidney disease, solitary kidney, hypertension, hypothyroidism and anxiety. PAST SURGICAL HISTORY: Status post aortic valve replacement, coronary artery bypass surgery, pacemak er placement in 06/2016. ALLERGIES: THE PATIENT HAS KNOWN ALLERGY TO CODEINE. CURRENT MEDICATIONS: Furosemide, metoprolol, amiodarone, long-acting insulin Levemir, short-acting i nsulin Humalog, digoxin, tamsulosin and sertraline. FAMILY HISTORY: Noncontributory. SOCIAL HISTORY: The patient denies any smoking, alcohol or any drug use. The patient is retired. U ntil recent hospitalization, he was independent of activity of daily living and ambulatory. The patie nt lives with family. REVIEW OF SYSTEMS: He complains of generalized weakness, weight gain due to edema. Denies any fever or headache. Denies any blurry vision. Denies any sore throat. Denies any cough, wheezing. Compl aining of exertional shortness of breath. He denies any chest pain, heart palpitation, diaphoresis. He denies any abdominal pain, nausea, vomiting or diarrhea. He denies any dysuria or hematuria. He complains of generalized, diffuse lower leg edema. He complains of anxiety, insomnia and depressed mood. PHYSICAL EXAMINATION: VITAL SIGNS: Temperature 98.7, pulse 97 and regular, blood pressure 133/67, respiratory rate 18, oxy gen saturation 97% on liters of nasal cannula. GENERAL: The patient is lying in a reclining chair. Pale looking but alert, awake and oriented to t maria luz, person and place. HEAD: Normocephalic, atraumatic. EYES: Pupils reactive to light. Oral mucosa is moist. NECK: Supple. LUNGS: With decreased breath sounds in the base. No rales. HEART: Regular rhythm and rate. ABDOMEN: Soft, nondistended, and nontender. Bowel sounds are positive. EXTREMITIES: With 1+ edema with bilateral wrapping dressing of lower extremities. Distal pulses are palpable. DIAGNOSTIC TESTS: CBC with WBC 9.8, hemoglobin 10, hematocrit 30.1, platelet count 524. Chemistry w ith normal electrolytes, sodium 136, potassium 3.8. BUN 39 and creatinine 1.6. Glucose 153 an d mildly elevated liver enzymes. ASSESSMENT: 1. A 76-year-old male with history of recent retroperitoneal bleeding and urosepsis admitted for grant ilitated state and deconditioning. 2. Type 2 diabetes mellitus. 3. Chronic and acute kidney disease. 4. Hypertension. 5. Anxiety with episodes of confusion. 6. Hypothyroidism. PLAN OF TREATMENT: The patient will be maintained on his medications, antiarrhythmics, amiodarone 20 0 mg and metoprolol 50 mg. He will be maintained on diuretics, furosemide, his chronic insulin regim en with Levemir and Humalog. Will be maintained on sertraline and Flomax. We will monitor closely h is CBC and electrolytes. The patient will start physical therapy. Abiola Sparks MD cc: [id number] TT: 08/16/2016 22:41:25 ln
[2016-08-17] MEDS: Pantoprazole 40 mg EC Tab PO SCH (05:43)
[2016-08-17] MEDS: Levothyroxine 25 MCG TAB PO SCH (05:44)
[2016-08-17] MEDS: Insulin Detemir 100 units/ml Vial (Levemir) SC SCH ×4 (06:40→21:48)
[2016-08-17] MEDS: Insulin Lispro 1 UNITS/0.01 ML SC SCH ×3 (06:41→18:09)
[2016-08-17] MEDS: Potassium Chloride 20 mEq ER Tab PO SCH (08:00)
--- NOTE | 2016-08-17 08:05 | CP.PCM.PN ---
Subjective - Date & Time of Evaluation Date of Evaluation: 08/17/16 Time of Evaluation: 07:00 - Subjective Subjective: Stable in TCU. No CP or SOB. Weak. OOB to chair yesterday. V/S noted. PE: Lungs clear Cor.: S1S2 Abd.: soft Ext.: + edema Neuro.; alert Labs 08/16 noted: Cr.= 1.6, Dig.= 0.5 Objective - Vital Signs/Intake and Output Vital Signs (last 24 hours): Temp Pulse Resp BP Pulse Ox 97.8 F 63 18 138/74 96 08/17/16 06:00 08/17/16 06:00 08/17/16 06:00 08/17/16 06:00 08/17/16 06:00 Intake and Output: 08/17/16 08/17/16 06:59 18:59 Intake Total 200 Output Total 800 Balance -600 - Medications Medications: Current Medications Acetaminophen (Tylenol 325mg Tab) 650 mg PO Q6H PRN PRN Reason: Pain, moderate (4-7) Alprazolam (Xanax) 0.25 mg PO HS PRN; Protocol PRN Reason: Anxiety Stop: 08/23/16 09:59 Amiodarone HCl (Cordarone) 200 mg PO BID [facility] Last Admin: 08/16/16 18:25 Dose: 200 mg Aspirin (Aspirin Chewable) 81 mg PO DAILY [facility] Last Admin: 08/16/16 12:33 Dose: Not Given Digoxin (Lanoxin) 0.125 mg PO 1400 [facility] Last Admin: 08/16/16 14:39 Dose: 0.125 mg Docusate Sodium (Colace) 100 mg PO BID [facility] Last Admin: 08/16/16 18:26 Dose: 100 mg Furosemide (Lasix) 40 mg PO DAILY [facility] Last Admin: 08/16/16 11:00 Dose: 40 mg Insulin Detemir (Levemir) 9 unit SC HS [facility] PRN Reason: Protocol Last Admin: 08/16/16 22:49 Dose: 9 unit Insulin Detemir (Levemir) 8 unit SC ACBD [facility] Last Admin: 08/17/16 06:40 Dose: 8 unit Insulin Human Lispro (Humalog) 16 units SC AC [facility] PRN Reason: Protocol Last Admin: 08/17/16 06:41 Dose: Not Given Levothyroxine Sodium (Synthroid) 25 mcg PO 0600 [facility] PRN Reason: Protocol Last Admin: 08/17/16 05:44 Dose: 25 mcg Metoprolol Tartrate (Lopressor) 50 mg PO BID [facility] PRN Reason: Protocol Last Admin: 08/16/16 18:27 Dose: 50 mg Pantoprazole Sodium (Protonix Ec Tab) 40 mg PO 0600 [facility] PRN Reason: Protocol Last Admin: 08/17/16 05:43 Dose: 40 mg Potassium Chloride (K-Dur 20 Meq Er Tab) 20 meq PO DAILY [facility] Last Admin: 08/16/16 11:13 Dose: 20 meq Sertraline HCl (Zoloft) 25 mg PO DAILY [facility] Last Admin: 08/16/16 11:00 Dose: 25 mg Tamsulosin HCl (Flomax) 0.4 mg PO DAILY [facility] Last Admin: 08/16/16 11:13 Dose: 0.4 mg - Labs Labs: 08/16/16 09:00 08/16/16 09:00 Assessment and Plan - Assessment and Plan (Free Text) Assessment: S/P retroperitoneal bleed and UTI/Sepsis S/P AVR/CABG 06/25/16 with multiple post-op complicatios: PAF, Dao-Tachy, PPM, ileus, Pleural effusions, Acute on chronic kidney disease, Debilitated state CAD Diabetes Hypothyroidism Abnormal LFT's Plan: Continue current cardiac meds No A/C Check urine C+S F/U CT A+P later OOB/Chair/PT/rehab efforts Monitor labs, I/O Avoid anxiolytics. Will follow
[2016-08-17] MEDS: Digoxin 125 mcg (0.125 mg) Tab PO SCH (15:31)
--- NOTE | 2016-08-17 19:51 | PN ---
DATE: 08/17/2016 SUBJECTIVE: The patient remains in TCU, admitted for deconditioning after treated for urosepsis in [facility]. The patient is complaining of being weak, but denies any pain. His appetite impr maggi. He denies any chest pain, shortness of breath. PHYSICAL EXAMINATION: VITAL SIGNS: Stable. His temperature is 98.3, pulse 66, blood pressure 139/71, respiratory rate 20. GENERAL: He is sitting in a reclining chair. Alert, awake, oriented. HEENT: Head is normocephalic, atraumatic. Pale looking. Oral mucosa is moist. NECK: Supple. LUNGS: With decreased breath sounds in bases. HEART: Regular rhythm and rate. ABDOMEN: Soft, nontender, nondistended. EXTREMITIES: With 1+ edema, 2+ pedal edema. ASSESSMENT: 1. Status post retroperitoneal bleeding and urosepsis. 2. Coronary artery disease. 3. Chronic and acute kidney disease. 4. Type 2 diabetes mellitus. 5. Hypertension. 6. Anxiety. PLAN OF TREATMENT: Close monitoring of patient's status. Encourage physical therapy. Continue aixa toring his glucose. Continue current insulin regimen. Abiola Sparks MD cc: [id number] TT: 08/17/2016 19:50:06 Confirmation # [id number] Dictation # [id number]
[2016-08-18] MEDS: Levothyroxine 25 MCG TAB PO SCH (05:32)
[2016-08-18] MEDS: Pantoprazole 40 mg EC Tab PO SCH (05:32)
[2016-08-18] MEDS: Insulin Lispro 1 UNITS/0.01 ML SC SCH ×3 (06:58→17:04)
[2016-08-18] MEDS: Insulin Detemir 100 units/ml Vial (Levemir) SC SCH ×3 (06:59→21:49)
[2016-08-18 07:25] LABS: HEMATOCRIT 30.6 % (42.0-52.0); MEAN CELL VOLUME 90.5 fL (80.0-105.0); MEAN PLATELET VOLUME 8.9 fl (7.0-11.0); RED CELL DISTRIBUTION WIDTH 18.2 % (11.5-14.5); WHITE BLOOD COUNT 9.9 10^3/ul (4.5-11.0)
[2016-08-18 07:43] LABS: ALB/GLOB RATIO 0.6 (1.1-1.8); CALCIUM 8.5 mg/dL (8.4-10.5); POTASSIUM 4.4 mmol/L (3.6-5.0); TOTAL PROTEIN 6.4 g/dL (5.8-8.3)
--- NOTE | 2016-08-18 07:48 | CP.PCM.PN ---
Subjective - Date & Time of Evaluation Date of Evaluation: 08/18/16 Time of Evaluation: 07:00 - Subjective Subjective: Stable in TCU. No CP or SOB. Weak. OOB to chair and ambulated yesterday V/S noted. PE: Lungs clear Cor.: S1S2 Abd.: soft Ext.: + edema Neuro.; alert Labs 08/16 noted: Cr.= 1.6, Dig.= 0.5 08/17: Pl Ct. 500,000 Urine C+S NG CXR 08/17 not read yet. Looks OK. Objective - Vital Signs/Intake and Output Vital Signs (last 24 hours): Temp Pulse Resp BP Pulse Ox 98.3 F 77 20 156/71 H 98 08/17/16 10:00 08/17/16 18:12 08/17/16 10:00 08/17/16 18:12 08/17/16 10:00 Intake and Output: 08/18/16 08/18/16 06:59 18:59 Intake Total 200 Output Total 600 Balance -400 - Medications Medications: Current Medications Acetaminophen (Tylenol 325mg Tab) 650 mg PO Q6H PRN PRN Reason: Pain, moderate (4-7) Alprazolam (Xanax) 0.25 mg PO HS PRN; Protocol PRN Reason: Anxiety Stop: 08/23/16 09:59 Amiodarone HCl (Cordarone) 200 mg PO BID [facility] Last Admin: 08/17/16 18:08 Dose: 200 mg Aspirin (Aspirin Chewable) 81 mg PO 0800 [facility] Digoxin (Lanoxin) 0.125 mg PO 1400 [facility] Last Admin: 08/17/16 15:31 Dose: 0.125 mg Docusate Sodium (Colace) 100 mg PO BID [facility] Last Admin: 08/17/16 18:07 Dose: 100 mg Furosemide (Lasix) 40 mg PO DAILY [facility] Last Admin: 08/17/16 09:44 Dose: 40 mg Insulin Detemir (Levemir) 9 unit SC HS [facility] PRN Reason: Protocol Last Admin: 08/17/16 21:48 Dose: Not Given Insulin Detemir (Levemir) 8 unit SC ACBD [facility] Last Admin: 08/18/16 06:59 Dose: 8 unit Insulin Human Lispro (Humalog) 16 units SC AC [facility] PRN Reason: Protocol Last Admin: 08/18/16 06:58 Dose: 16 units Levothyroxine Sodium (Synthroid) 25 mcg PO 0600 [facility] PRN Reason: Protocol Last Admin: 08/18/16 05:32 Dose: 25 mcg Metoprolol Tartrate (Lopressor) 50 mg PO 0800,1800 [facility] PRN Reason: Protocol Last Admin: 08/17/16 18:12 Dose: 50 mg Pantoprazole Sodium (Protonix Ec Tab) 40 mg PO 0600 [facility] PRN Reason: Protocol Last Admin: 08/18/16 05:32 Dose: 40 mg Potassium Chloride (K-Dur 20 Meq Er Tab) 20 meq PO 0800 [facility] Sertraline HCl (Zoloft) 25 mg PO DAILY [facility] Last Admin: 08/17/16 09:44 Dose: 25 mg Tamsulosin HCl (Flomax) 0.4 mg PO QPM [facility] Last Admin: 08/17/16 18:08 Dose: 0.4 mg - Labs Labs: 08/18/16 07:00 08/16/16 09:00 Assessment and Plan - Assessment and Plan (Free Text) Assessment: S/P retroperitoneal bleed and UTI/Sepsis S/P AVR/CABG 06/25/16 with multiple post-op complicatios: PAF, Dao-Tachy, PPM, ileus, Pleural effusions, Acute on chronic kidney disease, Debilitated state CAD Diabetes Hypothyroidism Abnormal LFT's Plan: Continue current cardiac meds No A/C F/U CT A+P for retroperit. bleed: later OOB/Chair/PT/rehab efforts Monitor labs, BS's, I/O Avoid anxiolytics. Will follow
[2016-08-18] MEDS: Potassium Chloride 20 mEq ER Tab PO SCH (08:30)
--- NOTE | 2016-08-18 10:49 | PN ---
DATE: 08/18/2016 Covering this morning for this patient in transitional care unit, who was brought in for continued ca re and rehabilitation after a recent retroperitoneal bleed, and sepsis urinary tract infection, trans ferred back from [facility], once he was ready to go to a subacute setting. He is st atus post an AVR, CABG on 06/25/2016 and has had some postop complications including paroxysmal atria l fibrillation, bradycardia that required pacemaker insertion, a history of ileus, slight pleural eff usion and acute on chronic kidney disease. Overall, he is in rehabilitate state and today, appears t o be showing the wear and tear of the multiple diseases that he has had, as he seems a little detecte d, a little depressed. Nevertheless, he is somewhat communicative after we urge him on some answers. He is comfortable in his chair as we arrived, but we woke him come up and he did complain of some d iscomfort or pain on the right lower extremity. Thinking that this was due to his Harley wrap, we unwra pped that the initial wrap and then proceeded to the second wrap. There were no lesions, nevertheles s, he still persisted that there was some discomfort on the mid shaft of the lower extremity, no calf tenderness, no Homans, so we have asked for a postponement of this morning rehabilitation and that h e have a stat ultrasound of the lower extremities. We have reviewed Dr. Self's senior engineering associate evalu ation noted to be cardiologically stable. No chest pain, no shortness of breath; but again as we not ed, he is weak and he is on the chair, but noting from our last interaction with him on his discharge from TCU little over 3 weeks ago, he really does seem to be dejected. We note that Dr. Self's rec ommendation for today, recommend that he receive no angio lytic. He is not on any anticoagulation an d he is at risk for a coagulopathy, so this is the reason for this sudden evaluation for a DVT involv ing the right lower extremity. As endorsed by Dr. House yesterday he has been incontinent of urin e and we wanted to try to get a bladder scan to see the retained urine as he probably is having some overflow problems. He has also had some elevation in his LFTs, but the trend seems to be stable or c oming down. This is as much as we understand of the present case. There is a language barrier, but the physical therapist today that came to the room, as we work including, does communicate well in denae so she will continue to press him and ask him for some answers. PHYSICAL EXAMINATION: VITAL SIGNS: This morning, blood pressure of 150/70, pulse rate of 69 and afebrile with O2 via nasal cannula. GENERAL: He is alert and oriented to person, place. HEENT: Oral mucosa is moist. SKIN: Turgor is adequate. He is pale and the conjunctivae are pink. There is no injected sclerae a nd no oral mucosa. No thrush. NECK: Supple. We do not appreciate a bruit. No cervical lymphadenopathy. HEART: Distant in sound and appears regular today with a II/ ejection murmur best noted at the lef t sternal border. LUNGS: Have no adventitious sounds, is clear to percussion. ABDOMEN: Soft, bowel sounds are present. He does not complain of constipation. He continues to be incontinent and perhaps consideration in the future to place a Velazquez if there continues to be much in the bladder as to scan, hopefully will show this morning. Fingersticks yesterday and the glucose were very acceptable. LABORATORY DATA: His morning CBC shows a hemoglobin of 9.8 and hematocrit of 30.6, more or less stab le with what he has been running this week, slightly elevated platelet count of 500,000. His serum c reatinine is improved from yesterday to 1.4 and his BUN is 30. His random glucose is 226 and he is d iabetic under slight improved control, I do not have a recent A1c to compare. The AST and ALT this m orning are 76 and 72 respectively. We will continue to follow as the total bilirubin and the alkalin e phosphatase still remains elevated and this has been the case for a week or so as we understand. IMPRESSION: 1. Overall debility. He is status post rehospitalization x 2 post-surgical intervention for valvulo plasty and a recent retroperitoneal bleed. 2. Right lower extremity pain, rule out deep venous thrombosis. 3. Type 2 diabetes mellitus. 4. Possible depression. 5. Underlying coronary artery disease. 6. Elevated liver function tests. He requires continued stay at the transitional care for close monitoring. We will have to make a sec ondary decision if there seems to be any coagulopathy ongoing as a result of his complaint on the leg . Jomar Sparks MD cc: [id number] TT: 08/18/2016 10:47:47 Confirmation # [id number] Dictation # [id number] jn
--- NOTE | 2016-08-18 12:08 | RAD ---
HISTORY: edema COMPARISON: No prior. FINDINGS: LUNGS: No active pulmonary disease. PLEURA: Small left pleural effusion CARDIOVASCULAR: Mild cardiomegaly. Mild vascular congestion. Dual lead pacemaker OSSEOUS STRUCTURES: Sternal wires VISUALIZED UPPER ABDOMEN: Normal. OTHER FINDINGS: None. IMPRESSION: Small left pleural effusion. Mild vascular congestion
[2016-08-18] MEDS: Digoxin 125 mcg (0.125 mg) Tab PO SCH (14:20)
[2016-08-19] MEDS: Pantoprazole 40 mg EC Tab PO SCH (05:24)
[2016-08-19] MEDS: Levothyroxine 25 MCG TAB PO SCH (05:24)
[2016-08-19] MEDS: Insulin Detemir 100 units/ml Vial (Levemir) SC SCH ×3 (06:49→22:08)
[2016-08-19] MEDS: Insulin Lispro 1 UNITS/0.01 ML SC SCH ×3 (06:49→17:25)
--- NOTE | 2016-08-19 07:19 | CP.PCM.PN ---
Subjective - Date & Time of Evaluation Date of Evaluation: 08/19/16 Time of Evaluation: 07:00 - Subjective Subjective: Stable in TCU. No CP or SOB. Weak. OOB to chair and ambulated yesterday. + " left kidney pain" reported today. V/S noted. PE: Lungs clear Cor.: S1S2 Abd.: soft Ext.: + edema Neuro.; alert Labs 08/16 noted: Cr.= 1.6, Dig.= 0.5 08/18: noted Cr. = 1.4, PL. Ct. = 500,000 Urine C+S NG CXR 08/[address] effusion, mild vscular congestion LE venous Dopplers: pending Objective - Vital Signs/Intake and Output Vital Signs (last 24 hours): Temp Pulse Resp BP Pulse Ox 98.2 F 62 18 154/77 H 98 08/19/16 06:00 08/19/16 06:00 08/19/16 06:00 08/19/16 06:00 08/19/16 06:00 Intake and Output: 08/19/16 08/19/16 06:59 18:59 Output Total 300 Balance -300 - Medications Medications: Current Medications Acetaminophen (Tylenol 325mg Tab) 650 mg PO Q6H PRN PRN Reason: Pain, moderate (4-7) Last Admin: 08/18/16 17:02 Dose: 650 mg Alprazolam (Xanax) 0.25 mg PO HS PRN; Protocol PRN Reason: Anxiety Stop: 08/23/16 09:59 Amiodarone HCl (Cordarone) 200 mg PO BID [facility] Last Admin: 08/18/16 17:03 Dose: 200 mg Aspirin (Aspirin Chewable) 81 mg PO 0800 [facility] Last Admin: 08/18/16 09:00 Dose: 81 mg Digoxin (Lanoxin) 0.125 mg PO 1400 [facility] Last Admin: 08/18/16 14:20 Dose: 0.125 mg Docusate Sodium (Colace) 100 mg PO BID [facility] Last Admin: 08/18/16 17:03 Dose: 100 mg Furosemide (Lasix) 40 mg PO DAILY [facility] Last Admin: 08/18/16 09:03 Dose: 40 mg Insulin Detemir (Levemir) 9 unit SC HS [facility] PRN Reason: Protocol Last Admin: 08/18/16 21:49 Dose: 9 unit Insulin Detemir (Levemir) 8 unit SC ACBD [facility] Last Admin: 08/19/16 06:49 Dose: 8 unit Insulin Human Lispro (Humalog) 16 units SC AC [facility] PRN Reason: Protocol Last Admin: 08/19/16 06:49 Dose: 16 units Levothyroxine Sodium (Synthroid) 25 mcg PO 0600 [facility] PRN Reason: Protocol Last Admin: 08/19/16 05:24 Dose: 25 mcg Metoprolol Tartrate (Lopressor) 50 mg PO 0800,1800 [facility] PRN Reason: Protocol Last Admin: 08/18/16 17:04 Dose: 50 mg Pantoprazole Sodium (Protonix Ec Tab) 40 mg PO 0600 [facility] PRN Reason: Protocol Last Admin: 08/19/16 05:24 Dose: 40 mg Potassium Chloride (K-Dur 20 Meq Er Tab) 20 meq PO 0800 [facility] Last Admin: 08/18/16 08:30 Dose: 20 meq Sertraline HCl (Zoloft) 25 mg PO DAILY [facility] Last Admin: 08/18/16 09:04 Dose: 25 mg Tamsulosin HCl (Flomax) 0.4 mg PO QPM [facility] Last Admin: 08/18/16 17:03 Dose: 0.4 mg - Labs Labs: 08/18/16 07:00 08/18/16 07:00 Assessment and Plan - Assessment and Plan (Free Text) Assessment: S/P retroperitoneal bleed and UTI/Sepsis S/P AVR/CABG 06/25/16 with multiple post-op complicatios: PAF, Dao-Tachy, PPM, ileus, Pleural effusions, Acute on chronic kidney disease, Debilitated state CAD Diabetes Hypothyroidism Abnormal LFT's, possible due to resolving retroperitoneal bleed Plan: Continue current cardiac meds No A/C Evaluate:"left kidney pain" Check LE venous Doppler results F/U CT A+P for retroperit. bleed. OOB/Chair/PT/rehab efforts Monitor labs, BS's, LFT's, I/O Avoid anxiolytics. Will follow
[2016-08-19] MEDS: Potassium Chloride 20 mEq ER Tab PO SCH (08:07)
[2016-08-19 09:50] LABS: ALB/GLOB RATIO 0.6 (1.1-1.8); BILIRUBIN,TOTAL 1.5 mg/dL (0.2-1.3); CALCIUM 8.4 mg/dL (8.4-10.5); POTASSIUM 4.4 mmol/L (3.6-5.0); TOTAL PROTEIN 6.5 g/dL (5.8-8.3)
--- NOTE | 2016-08-19 11:19 | PN ---
DATE: 08/19/2016 The patient had seen at bedtime. We are following up this morning as we are covering for Dr. Yamileth jacobsen, who had endorsed his care to us for this weekend. He is mildly dejected, sitting in the chair wit h some concerns of considering not agreeing to some followup as we understand him this morning as he figures certain things he may be too old for. We have tried to assure him that in his case, we do no t feel that further testing is too old, but very important to his continued care as he has a slow rec uperation but he is recuperating. We tried to make him aware this time with signs that there were ap parently no findings on his lower extremity duplex as we were not called and officially it is not on the chart and the bladder scan did not reveal any residual urine, so we informed the daughter via the phone and at the present, he has some complaint about some kidney pain in the back as noted both to Dr. Self and us this morning. The patient is status post an AVR, CABG on 06/25/2016 and subsequent complications and a recent admis shen into [facility] for a retroperitoneal hematoma that forced cessation of anticoag ulation. He is sitting in his chair asleep as we woke him up again. The discomfort again is on his left side and we have reviewed the chart and the findings so far this morning, and noted that Dr. Fco blanchard would prefer no increase in his use of the anxiolytics as he is on a low dose alprazolam at [facility] and sertraline 25, low dose. Perhaps if we could increase the sertraline and further encourage hi m with improved physical therapy, he will climb out of what appears to be this exogenous depression. PHYSICAL EXAMINATION: VITAL SIGNS: This morning, he has a temperature 98.2, a pulse rate of 62, blood pressure 154/77 and O2 sat of 98% on nasal cannula. GENERAL: He has no respiratory distress. SKIN: Turgor is adequate. No tenting sign of dehydration. HEENT: Conjunctivae remain pink. Sclerae do appear to have a slight tinge. We will need to keep an eye on his liver enzymes and I have ordered he have his labs done now. NEUROLOGIC: He is alert and oriented to person and place as far as we can tell. There is no transla tor available as there was yesterday with the physical therapist. NECK: Does not appear to have any bruit. No cervical lymphadenopathy. Appears to be supple. HEART: Regular in rhythm, but there is a murmur that does appear to be holosystolic. LUNGS: Have crepitant rales on the right lower base and the left appears to be clear. No adventitio us sign. MUSCULOSKELETAL: His pain is on the left, however, negative CVA tenderness on the left or the right. ABDOMEN: Soft, bowel sounds are present. It is round and not distended. He had stool as noted yest erday, not certain of the number of times as this was not noted here. The bladder scan was unremarka ble for residual and he did void while the daughter was here yesterday before the bladder scan. EXTREMITIES: Have the CRYSTAL bandage on. There were no lesions when we took them apart yesterday and t aida he is not pointing to them as the source of problems. In review of the chart, we note that there has been no repeat of the CAT scan and given the pain that he has, we feel a CAT scan of the abdomen and pelvis without oral or without IV contrast will be hel pful in case the retroperitoneal hematoma will need followup. He is moving all the extremities as no beatris. He did ambulate yesterday. IMPRESSION: Agreed with the cardiology opinion this morning of continued stay. He is stable from th e cardiac standpoint and we are not sure what the origin of the left flank or kidney pain is about, b ut a CAT scan will be performed as we had discussed with the daughter. History of recent retroperito marcy bleed and sepsis. SECONDARY DIAGNOSES: Aortic valve replacement and coronary artery bypass graft done in June, initial part of the month, with postop complications including paroxysmal atrial fibrillation, bradycardia-ta chycardia syndrome, ileus and small pleural effusion. He has a single kidney, so we must be careful with any administration of contrast. We do not intend on using any at the moment. His diabetes appe ars to be well controlled and given the history of prior elevated LFTs, we will see the trend this mo rning and have ordered the labs. PLAN OF CARE: Depends on the CAT scan and continue the current medications. Perhaps tomorrow, consi jonathan with implementation project coordinator's blessing, to increase his antidepressants. Jomar Sparks MD cc: [phone] TT: 08/19/2016 11:18:39 Confirmation # [id number] Dictation # [id number]
--- NOTE | 2016-08-19 13:15 | US ---
HISTORY: Leg pain and swelling. Evaluate for DVT PHYSICIAN(S): Juan M Rogers MD. TECHNIQUE: Duplex sonography and color-flow Doppler with graded compression were used to evaluate the deep venous systems of both lower extremities. The exam is limited by edema. FINDINGS: The visualized deep venous systems of both lower extremities are sonographically normal and compressible. Normal wave forms and augmentation are seen. There is no sonographic evidence for deep venous thrombosis in the visualized segments of both lower extremities. IMPRESSION: No sonographic evidence for deep venous thrombosis in the visualized segments of both lower extremities.
[2016-08-19 14:47] VITALS: PULSE 64
[2016-08-19] MEDS: Digoxin 125 mcg (0.125 mg) Tab PO SCH (14:47)
[2016-08-20] MEDS: Pantoprazole 40 mg EC Tab PO SCH (05:44)
[2016-08-20] MEDS: Levothyroxine 25 MCG TAB PO SCH (05:44)
[2016-08-20 06:42] LABS: PH,URINE 6.5 (4.7-8.0); URINE BILIRUBIN NEGATIVE (NEGATIVE); URINE BLOOD LARGE (NEGATIVE); URINE GLUCOSE (UA) NEGATIVE (NEGATIVE); URINE KETONE NEGATIVE (NEGATIVE); URINE LEUKOCYTE ESTERASE MODERATE Leu/uL (NEGATIVE); URINE PROTEIN 30 mg/dL (<30 mg/dL); URINE UROBILINOGEN 0.2 E.U./dL (<1 E.U./dL)
[2016-08-20] MEDS: Insulin Lispro 1 UNITS/0.01 ML SC SCH ×3 (06:43→17:30)
[2016-08-20] MEDS: Insulin Detemir 100 units/ml Vial (Levemir) SC SCH ×3 (06:44→22:20)
[2016-08-20 06:58] LABS: URINE APPEARANCE SL CLOUDY (CLEAR); URINE COLOR YELLOW (YELLOW)
[2016-08-20 07:02] LABS: URINE WBC 15 - 20 /hpf (0-6)
[2016-08-20 07:03] LABS: URINE BACTERIA MOD (NEG)
--- NOTE | 2016-08-20 07:54 | CP.PCM.PN ---
Subjective - Date & Time of Evaluation Date of Evaluation: 08/20/16 Time of Evaluation: 07:00 - Subjective Subjective: Stable in TCU. No CP or SOB. Weak. OOB to chair and ambulated yesterday. He wants to go home. No flank pain this AM V/S noted. PE: Lungs clear Cor.: S1S2 Abd.: soft Ext.: + edema Neuro.; alert Labs 08/16 noted: Cr.= 1.6, Dig.= 0.5 08/18: noted Cr. = 1.4, PL. Ct. = 500,000 08/19: CMP noted. Cr.= 1.4, abn LFT's Urine C+S NG CXR 08/[address] effusion, mild vscular congestion LE venous Dopplers: No DVT Objective - Vital Signs/Intake and Output Vital Signs (last 24 hours): Temp Pulse Resp BP Pulse Ox 98.1 F 61 18 156/80 H 98 08/20/16 06:00 08/20/16 06:00 08/20/16 06:00 08/20/16 06:00 08/20/16 06:00 Intake and Output: 08/20/16 08/20/16 06:59 18:59 Intake Total 250 Output Total 900 Balance -650 - Medications Medications: Current Medications Acetaminophen (Tylenol 325mg Tab) 650 mg PO Q6H PRN PRN Reason: Pain, moderate (4-7) Last Admin: 08/19/16 20:43 Dose: 650 mg Alprazolam (Xanax) 0.25 mg PO HS PRN; Protocol PRN Reason: Anxiety Stop: 08/23/16 09:59 Amiodarone HCl (Cordarone) 200 mg PO BID [facility] Last Admin: 08/19/16 18:08 Dose: 200 mg Aspirin (Aspirin Chewable) 81 mg PO 0800 [facility] Last Admin: 08/19/16 07:46 Dose: Not Given Docusate Sodium (Colace) 100 mg PO BID [facility] Last Admin: 08/19/16 18:07 Dose: 100 mg Furosemide (Lasix) 40 mg PO DAILY [facility] Last Admin: 08/19/16 11:10 Dose: 40 mg Insulin Detemir (Levemir) 9 unit SC HS [facility] PRN Reason: Protocol Last Admin: 08/19/16 22:08 Dose: 9 unit Insulin Detemir (Levemir) 8 unit SC ACBD [facility] Last Admin: 08/20/16 06:44 Dose: 8 unit Insulin Human Lispro (Humalog) 16 units SC AC [facility] PRN Reason: Protocol Last Admin: 08/20/16 06:43 Dose: 16 units Levothyroxine Sodium (Synthroid) 25 mcg PO 0600 [facility] PRN Reason: Protocol Last Admin: 08/20/16 05:44 Dose: 25 mcg Metoprolol Tartrate (Lopressor) 50 mg PO 0800,1800 [facility] PRN Reason: Protocol Last Admin: 08/19/16 18:08 Dose: 50 mg Pantoprazole Sodium (Protonix Ec Tab) 40 mg PO 0600 [facility] PRN Reason: Protocol Last Admin: 08/20/16 05:44 Dose: 40 mg Potassium Chloride (K-Dur 20 Meq Er Tab) 20 meq PO 0800 [facility] Last Admin: 08/19/16 08:07 Dose: 20 meq Sertraline HCl (Zoloft) 25 mg PO DAILY [facility] Last Admin: 08/19/16 11:10 Dose: 25 mg Tamsulosin HCl (Flomax) 0.4 mg PO QPM [facility] Last Admin: 08/19/16 18:08 Dose: 0.4 mg - Labs Labs: 08/18/16 07:00 08/19/16 09:20 Assessment and Plan - Assessment and Plan (Free Text) Assessment: S/P retroperitoneal bleed and UTI/Sepsis S/P AVR/CABG 06/25/16 with multiple post-op complicatios: PAF, Dao-Tachy, PPM, ileus, Pleural effusions, Acute on chronic kidney disease, Debilitated state CAD Diabetes Hypothyroidism Abnormal LFT's, possible due to resolving retroperitoneal bleed Plan: Continue metoprolol and amio. D/C digoxin. No A/C F/U non-contrast CT A+P for retroperit. bleed. OOB/Chair/PT/rehab efforts Monitor labs, BS's, LFT's, I/O Avoid anxiolytics. Will follow
[2016-08-20] MEDS: Potassium Chloride 20 mEq ER Tab PO SCH (08:39)
--- NOTE | 2016-08-20 10:02 | PN ---
DATE: 08/20/2016 The patient remains in transitional care unit. The patient is feeling better. He is participating i n physical therapy with moderate improvement. He denies any shortness of breath, chest pain, or abdo shana pain. His appetite is fair. PHYSICAL EXAMINATION: VITAL SIGNS: Stable. Temperature is 98.1, pulse 61, blood pressure 156/80, respiratory rate 18. GENERAL: He is sitting in a reclining chair, alert, awake, oriented. HEENT: Head is normocephalic, atraumatic. Oral mucosa is moist. NECK: Supple. LUNGS: With decreased breath sounds in base. No crackles, wheezing, or rales. HEART: Regular rhythm and rate. ABDOMEN: Soft, nontender, nondistended. EXTREMITIES: With significant decrease of edema. DIAGNOSTIC TESTS: CBC is stable with hemoglobin 9.8, hematocrit 30.6, platelet count 500. Chemistry with normal electrolytes, improving renal function with BUN 28 and creatinine 1.4 this morning. Glu cose is stable. His liver enzymes are slowly trending down. Bilateral venous Doppler of lower extre mities was negative for DVT. CT of the abdomen done for followup of a retroperitoneal bleed is still pending. ASSESSMENT: 1. Status post retroperitoneal bleeding and urosepsis. 2. Coronary artery disease. 3. Chronic renal disease with solitary kidney. 4. Type 2 diabetes mellitus. 5. Hypertension. 6. Anxiety with mild depression. PLAN OF TREATMENT: Continue physical therapy. Monitoring of liver enzymes and CBC. Continue presen t therapy. Abiola Sparks MD cc: [id number] TT: 08/20/2016 10:01:48 Confirmation # [id number] Dictation # [id number] lupe
[2016-08-21] MEDS: Pantoprazole 40 mg EC Tab PO SCH (05:16)
[2016-08-21] MEDS: Levothyroxine 25 MCG TAB PO SCH (05:16)
[2016-08-21] MEDS: Insulin Lispro 1 UNITS/0.01 ML SC SCH ×3 (06:46→17:42)
[2016-08-21] MEDS: Insulin Detemir 100 units/ml Vial (Levemir) SC SCH ×3 (06:46→21:52)
[2016-08-21 07:37] LABS: HEMATOCRIT 32.1 % (42.0-52.0); MEAN CELL VOLUME 89.9 fL (80.0-105.0); MEAN CORPUSCULAR HEMOGLOBIN 29.1 pg (25.0-35.0); MEAN CORPUSCULAR HGB CONC 32.4 g/dl (31.0-37.0); MEAN PLATELET VOLUME 8.8 fl (7.0-11.0); RED CELL DISTRIBUTION WIDTH 17.7 % (11.5-14.5)
--- NOTE | 2016-08-21 07:44 | CP.PCM.PN ---
Subjective - Date & Time of Evaluation Date of Evaluation: 08/21/16 Time of Evaluation: 07:00 - Subjective Subjective: Stable in TCU. No CP or SOB. OOB to chair and ambulated yesterday. V/S noted. PE: Lungs clear Cor.: S1S2 Abd.: soft Ext.: + edema Neuro.; alert Labs 08/16 noted: Cr.= 1.6, Dig.= 0.5 08/18: noted Cr. = 1.4, PL. Ct. = 500,000 08/19: CMP noted. Cr.= 1.4, abn LFT's Urine C+S NG CXR 08/[address] effusion, mild vscular congestion LE venous Dopplers: No DVT CT A+P 08/19 noted. Objective - Vital Signs/Intake and Output Vital Signs (last 24 hours): Temp Pulse Resp BP Pulse Ox 97.8 F 67 20 143/66 90 L 08/20/16 10:00 08/20/16 18:14 08/20/16 10:00 08/20/16 18:14 08/20/16 10:00 - Medications Medications: Current Medications Acetaminophen (Tylenol 325mg Tab) 650 mg PO Q6H PRN PRN Reason: Pain, moderate (4-7) Last Admin: 08/21/16 06:47 Dose: 650 mg Alprazolam (Xanax) 0.25 mg PO HS PRN; Protocol PRN Reason: Anxiety Stop: 08/23/16 09:59 Last Admin: 08/20/16 22:21 Dose: 0.25 mg Amiodarone HCl (Cordarone) 200 mg PO BID [facility] Last Admin: 08/20/16 18:13 Dose: 200 mg Aspirin (Aspirin Chewable) 81 mg PO 0800 [facility] Last Admin: 08/20/16 08:39 Dose: Not Given Docusate Sodium (Colace) 100 mg PO BID [facility] Last Admin: 08/20/16 18:12 Dose: 100 mg Furosemide (Lasix) 40 mg PO DAILY [facility] Last Admin: 08/20/16 10:57 Dose: 40 mg Insulin Detemir (Levemir) 9 unit SC HS [facility] PRN Reason: Protocol Last Admin: 08/20/16 22:20 Dose: 9 unit Insulin Detemir (Levemir) 8 unit SC ACBD [facility] Last Admin: 08/21/16 06:46 Dose: 8 unit Insulin Human Lispro (Humalog) 16 units SC AC [facility] PRN Reason: Protocol Last Admin: 08/21/16 06:46 Dose: 16 units Levothyroxine Sodium (Synthroid) 25 mcg PO 0600 [facility] PRN Reason: Protocol Last Admin: 08/21/16 05:16 Dose: 25 mcg Metoprolol Tartrate (Lopressor) 50 mg PO 0800,1800 [facility] PRN Reason: Protocol Last Admin: 08/20/16 18:14 Dose: 50 mg Pantoprazole Sodium (Protonix Ec Tab) 40 mg PO 0600 [facility] PRN Reason: Protocol Last Admin: 08/21/16 05:16 Dose: 40 mg Potassium Chloride (K-Dur 20 Meq Er Tab) 20 meq PO 0800 [facility] Last Admin: 08/20/16 08:39 Dose: 20 meq Sertraline HCl (Zoloft) 25 mg PO DAILY [facility] Last Admin: 08/20/16 10:57 Dose: 25 mg Tamsulosin HCl (Flomax) 0.4 mg PO QPM [facility] Last Admin: 08/20/16 18:13 Dose: 0.4 mg - Labs Labs: 08/21/16 07:30 08/19/16 09:20 Assessment and Plan - Assessment and Plan (Free Text) Assessment: S/P retroperitoneal bleed and UTI/Sepsis S/P AVR/CABG 06/25/16 with multiple post-op complicatios: PAF, Dao-Tachy, PPM, ileus, Pleural effusions, Acute on chronic kidney disease, Debilitated state CAD Diabetes Hypothyroidism Abnormal LFT's, possible due to resolving retroperitoneal bleed Plan: Continue metoprolol and amio. No A/C F/U non-contrast CT A+P for retroperit. bleed.- noted OOB/Chair/PT/rehab efforts Monitor labs, BS's, LFT's, I/O Avoid anxiolytics. Will follow
[2016-08-21] MEDS: Potassium Chloride 20 mEq ER Tab PO SCH (07:59)
[2016-08-21 08:41] LABS: ALB/GLOB RATIO 0.6 (1.1-1.8); ALKALINE PHOSPHATASE 150 U/L (38-133); ALT/SGPT 57 U/L (7-56); AST/SGOT 49 U/L (15-59); BILIRUBIN,TOTAL 1.4 mg/dL (0.2-1.3); BLOOD UREA NITROGEN 20 mg/dL (7-21); CALCIUM 8.4 mg/dL (8.4-10.5); CARBON DIOXIDE 33 mmol/L (21-33); CHLORIDE 93 mmol/L (98-107); GFR AFRICAN-AMERICAN > 60; GLUCOSE,RANDOM 154 mg/dL (70-110); SODIUM 130 mmol/L (132-148); TOTAL PROTEIN 6.4 g/dL (5.8-8.3)
[2016-08-22] MEDS: Pantoprazole 40 mg EC Tab PO SCH (06:07)
[2016-08-22 06:44] VITALS: O2SAT 98
[2016-08-22 06:49] LABS: HEMATOCRIT 30.4 % (42.0-52.0); MEAN CELL VOLUME 90.2 fL (80.0-105.0); MEAN CORPUSCULAR HEMOGLOBIN 29.1 pg (25.0-35.0); MEAN CORPUSCULAR HGB CONC 32.2 g/dl (31.0-37.0); MEAN PLATELET VOLUME 8.8 fl (7.0-11.0); RED CELL DISTRIBUTION WIDTH 17.8 % (11.5-14.5); WHITE BLOOD COUNT 8.8 10^3/ul (4.5-11.0)
[2016-08-22 07:04] LABS: ALB/GLOB RATIO 0.6 (1.1-1.8); ALKALINE PHOSPHATASE 142 U/L (38-133); ALT/SGPT 53 U/L (7-56); AST/SGOT 55 U/L (15-59); BILIRUBIN,TOTAL 1.4 mg/dL (0.2-1.3); BLOOD UREA NITROGEN 22 mg/dL (7-21); CALCIUM 8.2 mg/dL (8.4-10.5); CARBON DIOXIDE 36 mmol/L (21-33); CHLORIDE 91 mmol/L (98-107); GFR AFRICAN-AMERICAN > 60; GLUCOSE,RANDOM 110 mg/dL (70-110); POTASSIUM 4.4 mmol/L (3.6-5.0); SODIUM 128 mmol/L (132-148); TOTAL PROTEIN 6.3 g/dL (5.8-8.3)
[2016-08-22] MEDS: Levothyroxine 25 MCG TAB PO SCH (07:28)
[2016-08-22] MEDS: Potassium Chloride 20 mEq ER Tab PO SCH (07:56)
[2016-08-22] MEDS: Insulin Lispro 1 UNITS/0.01 ML SC SCH ×2 (12:30→17:21)
--- NOTE | 2016-08-22 12:40 | CP.PCM.PN ---
Subjective - Date & Time of Evaluation Date of Evaluation: 08/22/16 Time of Evaluation: 11:30 - Subjective Subjective: Seen for followup on TCU. Seated in chair. Continues to appear somewhat despondent. Objective - Vital Signs/Intake and Output Vital Signs (last 24 hours): Temp Pulse Resp BP Pulse Ox 98.1 F 63 20 156/80 H 98 08/22/16 10:00 08/22/16 10:00 08/22/16 10:00 08/22/16 10:00 08/22/16 10:00 - Medications Medications: Current Medications Acetaminophen (Tylenol 325mg Tab) 650 mg PO Q6H PRN PRN Reason: Pain, moderate (4-7) Last Admin: 08/21/16 06:47 Dose: 650 mg Amiodarone HCl (Cordarone) 200 mg PO BID [facility] Last Admin: 08/22/16 09:35 Dose: 200 mg Aspirin (Aspirin Chewable) 81 mg PO 0800 [facility] Last Admin: 08/22/16 07:57 Dose: Not Given Docusate Sodium (Colace) 100 mg PO BID [facility] Last Admin: 08/22/16 09:32 Dose: 100 mg Furosemide (Lasix) 40 mg PO DAILY [facility] Last Admin: 08/22/16 09:35 Dose: 40 mg Insulin Detemir (Levemir) 9 unit SC HS [facility] PRN Reason: Protocol Last Admin: 08/21/16 21:52 Dose: Not Given Insulin Detemir (Levemir) 8 unit SC ACBD [facility] Last Admin: 08/21/16 17:44 Dose: 8 unit Insulin Human Lispro (Humalog) 16 units SC AC [facility] PRN Reason: Protocol Last Admin: 08/21/16 17:42 Dose: 16 units Levothyroxine Sodium (Synthroid) 25 mcg PO 0600 [facility] PRN Reason: Protocol Last Admin: 08/22/16 07:28 Dose: 25 mcg Metoprolol Tartrate (Lopressor) 50 mg PO 0800,1800 [facility] PRN Reason: Protocol Last Admin: 08/22/16 07:56 Dose: 50 mg Pantoprazole Sodium (Protonix Ec Tab) 40 mg PO 0600 [facility] PRN Reason: Protocol Last Admin: 08/22/16 06:07 Dose: 40 mg Potassium Chloride (K-Dur 20 Meq Er Tab) 20 meq PO 0800 [facility] Last Admin: 08/22/16 07:56 Dose: 20 meq Risperidone (Risperdal Tab) 0.25 mg PO HS [facility] PRN Reason: Protocol Last Admin: 08/21/16 22:02 Dose: 0.25 mg Sertraline HCl (Zoloft) 25 mg PO DAILY [facility] Last Admin: 08/22/16 09:35 Dose: 25 mg Tamsulosin HCl (Flomax) 0.4 mg PO QPM [facility] Last Admin: 08/21/16 17:37 Dose: 0.4 mg - Labs Labs: 08/22/16 06:30 08/22/16 06:30 - Constitutional Appears: Confused - Neck Exam Neck Exam: Normal Inspection - Respiratory Exam Respiratory Exam: Clear to Ausculation Bilateral - Cardiovascular Exam Cardiovascular Exam: REGULAR RHYTHM - GI/Abdominal Exam GI & Abdominal Exam: Soft, Normal Bowel Sounds - Extremities Exam Extremities Exam: absent: Pedal Edema - Psychiatric Exam Psychiatric exam: Depressed, Flat Affect Assessment and Plan - Assessment and Plan (Free Text) Assessment: Impression: * Deconditioned, following recent cardiac surgery * Paroxysmal atrial fibrillation * Status post aortic valve replacement/bypass surgery * Recent large retroperitoneal hematoma * Hyponatremia, likely diuretic induced Recommendations: * Continue to withhold diuretics for now. * Continue with Seroquel and Zoloft. * Encouraged to increase activities as able. * Continue rest of medications unchanged.
[2016-08-22] MEDS: Sodium Chloride 0.9% 1,000 ML IV SCH (15:37)
[2016-08-22] MEDS: Insulin Detemir 100 units/ml Vial (Levemir) SC SCH ×2 (17:14→21:48)
[2016-08-23] MEDS: Levothyroxine 25 MCG TAB PO SCH (05:38)
[2016-08-23] MEDS: Pantoprazole 40 mg EC Tab PO SCH (05:38)
[2016-08-23 06:39] LABS: HEMATOCRIT 31.6 % (42.0-52.0); MEAN CORPUSCULAR HEMOGLOBIN 29.1 pg (25.0-35.0); MEAN CORPUSCULAR HGB CONC 32.3 g/dl (31.0-37.0); MEAN PLATELET VOLUME 8.9 fl (7.0-11.0); RED CELL DISTRIBUTION WIDTH 17.8 % (11.5-14.5); WHITE BLOOD COUNT 10.7 10^3/ul (4.5-11.0)
[2016-08-23] MEDS: Insulin Lispro 1 UNITS/0.01 ML SC SCH ×2 (06:48→12:20)
[2016-08-23] MEDS: Insulin Detemir 100 units/ml Vial (Levemir) SC SCH (06:49)
[2016-08-23 07:15] LABS: ALB/GLOB RATIO 0.6 (1.1-1.8); ALKALINE PHOSPHATASE 136 U/L (38-133); ALT/SGPT 50 U/L (7-56); AST/SGOT 49 U/L (15-59); BILIRUBIN,TOTAL 1.5 mg/dL (0.2-1.3); BLOOD UREA NITROGEN 22 mg/dL (7-21); CALCIUM 8.1 mg/dL (8.4-10.5); CARBON DIOXIDE 35 mmol/L (21-33); CHLORIDE 91 mmol/L (98-107); GFR AFRICAN-AMERICAN > 60; GLUCOSE,RANDOM 109 mg/dL (70-110); POTASSIUM 4.4 mmol/L (3.6-5.0); SODIUM 128 mmol/L (132-148); TOTAL PROTEIN 6.2 g/dL (5.8-8.3)
[2016-08-23] MEDS: Potassium Chloride 20 mEq ER Tab PO SCH (07:51)
--- NOTE | 2016-08-23 07:58 | CP.PCM.PN ---
Subjective - Date & Time of Evaluation Date of Evaluation: 08/23/16 Time of Evaluation: 07:00 - Subjective Subjective: Stable in TCU. No CP or SOB. OOB to chair and ambulated yesterday. Depressed. V/S noted. PE: Lungs clear Cor.: S1S2 Abd.: soft Ext.: + edema Neuro.; alert Labs 08/16 noted: Cr.= 1.6, Dig.= 0.5 08/18: noted Cr. = 1.4, PL. Ct. = 500,000 08/19: CMP noted. Cr.= 1.4, abn LFT's 08/22: H/H 12/25.6, Pl Ct. = 331,000, Na+= 128 Urine C+S NG CXR 08/[address] effusion, mild vascular congestion LE venous Dopplers: No DVT CT A+P 08/19 noted. Objective - Vital Signs/Intake and Output Vital Signs (last 24 hours): Temp Pulse Resp BP Pulse Ox 98.1 F 68 20 135/71 98 08/22/16 10:00 08/22/16 17:19 08/22/16 10:00 08/22/16 17:19 08/22/16 10:00 - Medications Medications: Current Medications Acetaminophen (Tylenol 325mg Tab) 650 mg PO Q6H PRN PRN Reason: Pain, moderate (4-7) Last Admin: 08/21/16 06:47 Dose: 650 mg Amiodarone HCl (Cordarone) 200 mg PO BID [facility] Last Admin: 08/22/16 17:19 Dose: 200 mg Aspirin (Aspirin Chewable) 81 mg PO 0800 [facility] Last Admin: 08/23/16 07:51 Dose: Not Given Docusate Sodium (Colace) 100 mg PO BID [facility] Last Admin: 08/22/16 17:19 Dose: 100 mg Furosemide (Lasix) 40 mg PO DAILY [facility] Last Admin: 08/22/16 09:35 Dose: 40 mg Sodium Chloride (Sodium Chloride 0.9%) 1,000 mls @ 60 mls/hr IV .[id number] [facility] Last Admin: 08/22/16 15:37 Dose: 60 mls/hr Insulin Detemir (Levemir) 9 unit SC [facility] PRN Reason: Protocol Last Admin: 08/22/16 21:48 Dose: Not Given Insulin Detemir (Levemir) 8 unit SC ACBD [facility] Last Admin: 08/23/16 06:49 Dose: Not Given Insulin Human Lispro (Humalog) 16 units SC AC [facility] PRN Reason: Protocol Last Admin: 08/23/16 06:48 Dose: Not Given Levothyroxine Sodium (Synthroid) 25 mcg PO 0600 [facility] PRN Reason: Protocol Last Admin: 08/23/16 05:38 Dose: 25 mcg Metoprolol Tartrate (Lopressor) 50 mg PO 0800,1800 [facility] PRN Reason: Protocol Last Admin: 08/22/16 17:19 Dose: 50 mg Pantoprazole Sodium (Protonix Ec Tab) 40 mg PO 0600 [facility] PRN Reason: Protocol Last Admin: 08/23/16 05:38 Dose: 40 mg Potassium Chloride (K-Dur 20 Meq Er Tab) 20 meq PO 0800 [facility] Last Admin: 08/23/16 07:51 Dose: Not Given Risperidone (Risperdal Tab) 0.25 mg PO HS PRN; Protocol PRN Reason: Agitation Sertraline HCl (Zoloft) 25 mg PO DAILY [facility] Last Admin: 08/22/16 09:35 Dose: 25 mg Tamsulosin HCl (Flomax) 0.4 mg PO QPM [facility] Last Admin: 08/22/16 17:20 Dose: 0.4 mg - Labs Labs: 08/23/16 06:20 08/23/16 06:20 Assessment and Plan - Assessment and Plan (Free Text) Assessment: S/P retroperitoneal bleed and UTI/Sepsis S/P AVR/CABG 06/25/16 with multiple post-op complicatios: PAF, Dao-Tachy, PPM, ileus, Pleural effusions, Acute on chronic kidney disease, Debilitated state CAD Diabetes Hypothyroidism Abnormal LFT's, possible due to resolving retroperitoneal bleed Depression Plan: Continue metoprolol and amio. Hold Lasix Restrict free water No A/C F/U non-contrast CT A+P for retroperit. bleed.- noted OOB/Chair/PT/rehab efforts Monitor labs, BS's, LFT's, I/O Avoid anxiolytics. Will follow
[2016-08-23] MEDS: Sodium Chloride 0.9% 1,000 ML IV SCH (09:30)
[2016-08-23 10:31] VITALS: BP 138/73; PULSE 68
[2016-08-23 11:14] VITALS: RESP 18; TEMP 98.4
== END 2016-08-23 12:22 | disposition home health service (06) | DRG 945 ==
LOC: TRCU 13:44
PROVIDERS: ADMIT Family Medicine; ATTEND Family Medicine
PROC: F07Z9FZ Gait Training/Functional Ambulation Treatment using Assistive, Adaptive, Supportive or Protective Equipment (ICD-10-PCS; principal; 2016-08-17)
PROC: F07Z8ZZ Transfer Training Treatment (ICD-10-PCS; 2016-08-17)
PROC: F07L6YZ Therapeutic Exercise Treatment of Musculoskeletal System - Lower Back / Lower Extremity using Other Equipment (ICD-10-PCS; 2016-08-17)
PROC: F08Z1FZ Dressing Techniques Treatment using Assistive, Adaptive, Supportive or Protective Equipment (ICD-10-PCS; 2016-08-20)
DX: R53.81 Other malaise (principal); E87.1 Hypo-osmolality and hyponatremia; E11.22 Type 2 diabetes mellitus with diabetic chronic kidney disease; I48.0 Paroxysmal atrial fibrillation; Z48.812 Encounter for surgical aftercare following surgery on the circulatory system; N18.9 Chronic kidney disease, unspecified; I12.9 Hypertensive chronic kidney disease with stage 1 through stage 4 chronic kidney disease, or unspecified chronic kidney disease; F41.9 Anxiety disorder, unspecified; E03.9 Hypothyroidism, unspecified; F32.9 Major depressive disorder, single episode, unspecified; I25.10 Atherosclerotic heart disease of native coronary artery without angina pectoris; Z95.2 Presence of prosthetic heart valve; Z95.1 Presence of aortocoronary bypass graft; Z79.4 Long term (current) use of insulin

== ENCOUNTER 2016-08-25 12:45 | Inpatient (IN) | payer MEDICARE, OTHER ==
[2016-08-18 15:28] VITALS: PULSE 72
[2016-08-25] MEDS ORDERED: Vancomycin 1gm in NS 250ml 1 GM/250 ML BAG IVPB STA (15:45)
[2016-08-25] MEDS ORDERED: cefTRIAXone 1 gm 1 GM/100 ML BAG IVPB STA (15:45)
--- NOTE | 2016-08-25 21:42 | RAD ---
HISTORY: Fever COMPARISON: 08/17/2016 FINDINGS: LUNGS: Compressive atelectasis left lung. PLEURA: Stable left pleural effusion. CARDIOVASCULAR: No significant interval change compared to the prior examination(s). OSSEOUS STRUCTURES: No significant abnormalities. VISUALIZED UPPER ABDOMEN: Normal. OTHER FINDINGS: None. IMPRESSION: No significant interval change compared to the prior examination(s).
[2016-08-25 22:56] VITALS: BMI 26.8
[2016-08-25] MEDS ORDERED: Pneumococcal 23-Valent Vaccine IM ONE (22:56)
[2016-08-25 23:11] LABS: BLOOD UREA NITROGEN 31 mg/dL (7-21); GFR AFRICAN-AMERICAN 51; GFR NON-AFRICAN AMERICAN 42
[2016-08-25 23:12] LABS: ALB/GLOB RATIO 0.6 (1.1-1.8); ALBUMIN 2.4 g/dL (3.0-4.8); B-TYPE NATRIURETIC PEPTIDE 5500 pg/mL (0-450); CALCIUM 8.1 mg/dL (8.4-10.5)
[2016-08-25 23:13] LABS: ALT/SGPT 44 U/L (7-56); AST/SGOT 47 U/L (15-59); TROPONIN I 0.02 ng/mL
[2016-08-25] MEDS: Insulin Detemir 100 units/ml Vial (Levemir) SC SCH (23:23)
[2016-08-26 00:20] LABS: INR 1.18 (0.93-1.08); PARTIAL THROMBOPLASTIN TIME 29.3 Seconds (23.7-30.8); PROTHROMBIN TIME 12.7 Seconds (9.9-11.8)
[2016-08-26 00:22] LABS: HEMOGLOBIN 9.4 gm/dL (14.0-18.0); MEAN CELL VOLUME 90.6 fL (80.0-105.0); MEAN CORPUSCULAR HEMOGLOBIN 29.6 pg (25.0-35.0); MEAN CORPUSCULAR HGB CONC 32.6 g/dl (31.0-37.0); MEAN PLATELET VOLUME 9.3 fl (7.0-11.0); RBC 3.18 10^6/uL (3.5-6.1); RED CELL DISTRIBUTION WIDTH 18.3 % (11.5-14.5); WHITE BLOOD COUNT 13.2 10^3/ul (4.5-11.0)
[2016-08-26 07:18] LABS: HEMOGLOBIN 9.7 gm/dL (14.0-18.0); MEAN CELL VOLUME 90.9 fL (80.0-105.0); MEAN CORPUSCULAR HEMOGLOBIN 29.5 pg (25.0-35.0); MEAN CORPUSCULAR HGB CONC 32.4 g/dl (31.0-37.0); RBC 3.29 10^6/uL (3.5-6.1); RED CELL DISTRIBUTION WIDTH 18.2 % (11.5-14.5); WHITE BLOOD COUNT 16.5 10^3/ul (4.5-11.0)
[2016-08-26 07:56] LABS: ALB/GLOB RATIO 0.6 (1.1-1.8); ALBUMIN 2.3 g/dL (3.0-4.8); CALCIUM 8.1 mg/dL (8.4-10.5)
[2016-08-26] MEDS: Potassium Chloride 20 mEq ER Tab PO SCH (08:45)
[2016-08-26] MEDS: Insulin Detemir 100 units/ml Vial (Levemir) SC SCH ×2 (09:06→21:26)
--- NOTE | 2016-08-26 10:06 | CP.PCM.CON ---
History of Present Illness - History of Present Illness History of Present Illness: FEVER AT HOME Review of Systems - Constitutional Constitutional: Fever, Malaise, Weakness Past Patient History - Past Medical History & Family History Past Medical History?: Yes - Past Social History Smoking Status: Never Smoked - CARDIAC Hx Cardiac Disorders: Yes (CABG 06/25/16@[facility]; Ablation/CABG/ Valave Replacement. Hx: Aortic Stenosis.) Hx Congestive Heart Failure: Yes (Developed after CABG) Hx Hypertension: Yes Hx Peripheral Edema: Yes Other/Comment: Hx of Aortic Stenosis. - PULMONARY Hx Respiratory Disorders: No - NEUROLOGICAL Hx Neurological Disorder: Yes (Periods of confusion at night.) - HEENT Hx HEENT Problems: No - RENAL Hx Chronic Kidney Disease: Yes (Stage III CKD. Right kidney atrophied.) - ENDOCRINE/METABOLIC Hx Endocrine Disorders: Yes Hx Diabetes Mellitus Type 2: Yes Hx Hypothyroidism: Yes - HEMATOLOGICAL/ONCOLOGICAL Hx Blood Disorders: No - INTEGUMENTARY Hx Dermatological Problems: No - MUSCULOSKELETAL/RHEUMATOLOGICAL Hx Musculoskeletal Disorders: Yes Hx Falls: Yes - GASTROINTESTINAL Hx Gastrointestinal Disorders: No - GENITOURINARY/GYNECOLOGICAL Hx Genitourinary Disorders: Yes Hx Prostate Problems: Yes (BPH) Hx Urinary Tract Infection: Yes - PSYCHIATRIC Hx Psychophysiologic Disorder: No Hx Substance Use: No - SURGICAL HISTORY Hx Surgeries: Yes (CABG/Ablation/Valve replacement @ [facility] 06/25/16.) Hx Appendectomy: Yes Hx Open Heart Surgery: Yes (06/25/16 @ [facility].) Hx Valve Replacement: Yes (06/25/16 @ [facility].) Meds Allergies/Adverse Reactions: Allergies Allergy/AdvReac Type Severity Reaction Status Date / Time codeine Allergy Unknown URTICARIA Verified 08/20/16 08:36 - Medications Medications: Current Medications Amiodarone HCl (Cordarone) 200 mg PO DAILY [facility] Furosemide (Lasix) 40 mg IVP DAILY [facility] Insulin Detemir (Levemir) 9 unit SC HS [facility] Last Admin: 08/25/16 23:23 Dose: 9 unit Insulin Detemir (Levemir) 8 unit SC QAM [facility] Potassium Chloride (K-Dur 20 Meq Er Tab) 20 meq PO BRK [facility] Tamsulosin HCl (Flomax) 0.4 mg PO QPM [facility] Physical Exam - Constitutional Appears: Well - Head Exam Head Exam: ATRAUMATIC, NORMAL INSPECTION, NORMOCEPHALIC - Eye Exam Eye Exam: EOMI, Normal appearance, PERRL Pupil Exam: NORMAL ACCOMODATION, PERRL - ENT Exam ENT Exam: Mucous Membranes Moist, Normal Exam - Neck Exam Neck exam: Positive for: Normal Inspection - Respiratory Exam Respiratory Exam: Clear to Auscultation Bilateral, NORMAL BREATHING PATTERN - Cardiovascular Exam Cardiovascular Exam: REGULAR RHYTHM - GI/Abdominal Exam GI & Abdominal Exam: Normal Bowel Sounds, Soft. absent: Tenderness - Rectal Exam Rectal Exam: NORMAL INSPECTION - Exam Exam: Circumcision, NORMAL INSPECTION External exam: NORMAL EXTERNAL EXAM Speculum exam: NORMAL SPECULUM EXAM Bimanual exam: NORMAL BIMANUAL EXAM - Extremities Exam Extremities exam: Positive for: normal inspection - Back Exam Back exam: NORMAL INSPECTION - Neurological Exam Neurological exam: Alert, CN II-XII Intact, Normal Gait, Oriented x3, Reflexes Normal - Psychiatric Exam Psychiatric exam: Normal Affect, Normal Mood - Skin Skin Exam: Dry, Intact, Normal Color, Warm Results - Vital Signs Recent Vital Signs: Last Vital Signs Temp 99.2 F 08/26/16 05:57 Pulse 73 08/26/16 05:57 Resp 20 08/26/16 05:57 BP 148/72 08/26/16 05:57 Pulse Ox 99 08/26/16 05:57 - Labs Result Diagrams: 08/26/16 07:10 08/26/16 07:10 Labs: Laboratory Results - last 24 hr 08/26/16 08/26/16 07:10 07:10 WBC 16.5 H D RBC 3.29 L Hgb 9.7 L Hct 29.9 L MCV 90.9 MCH 29.5 MCHC 32.4 RDW 18.2 H Plt Count 326 MPV 9.0 Sodium 127 L Potassium 3.9 Chloride 89 L Carbon Dioxide 35 H Anion Gap 7 L BUN 26 H Creatinine 1.4 Est GFR ( Amer) 59 Est GFR (Non-Af Amer) 49 Random Glucose 228 H Calcium 8.1 L Total Bilirubin 1.3 AST 41 ALT 42 Alkaline Phosphatase 149 H Total Protein 5.9 Albumin 2.3 L Globulin 3.6 Albumin/Globulin Ratio 0.6 L Assessment & Plan (1) Fever Status: Acute (2) Leukocytosis (leucocytosis) Status: Acute (3) Acute kidney injury Status: Acute (4) Anemia Status: Acute - Assessment and Plan (Free Text) Plan: TEFLARO PENDING RUIZ CULTURES AND WORK UP - Date & Time Date: 08/26/16 Time: 08:00
[2016-08-26] MEDS: Insulin Lispro 1 UNITS/0.01 ML SC SCH ×2 (11:07→17:05)
[2016-08-26 12:30] LABS: URINE BILIRUBIN NEGATIVE (NEGATIVE); URINE BLOOD TRACE-LYSED (NEGATIVE); URINE GLUCOSE (UA) >=1000 mg/dL (NEGATIVE); URINE LEUKOCYTE ESTERASE SMALL Leu/uL (NEGATIVE); URINE NITRATE NEGATIVE (NEGATIVE); URINE PROTEIN NEGATIVE mg/dL (<30 mg/dL); URINE UROBILINOGEN 0.2 E.U./dL (<1 E.U./dL)
[2016-08-26 12:41] LABS: URINE APPEARANCE CLEAR (CLEAR); URINE COLOR YELLOW (YELLOW)
--- NOTE | 2016-08-26 15:00 | CP.PCM.HP ---
History of Present Illness - History of Present Illness History of Present Illness: 76 yo male with history of aortic valve replacement and coronary bypass surgery in June, re admitted for urinary tract infection and retro peritoneal bleeding in July. He was discharged home last week from Transitional Care Unit . He developed severe lethargy and fever 101F 2 days after returned from hospital. He denies cough , abdominal pain , nausea or vomiting. He has exertional dyspnea but no chest pain. Present on Admission - Present on Admission Any Indicators Present on Admission: No History of DVT/PE: No History of Uncontrolled Diabetes: No Urinary Catheter: No Decubitus Ulcer Present: No Review of Systems - Constitutional Constitutional: Anorexia, Fatigue, Lethargy, Malaise - EENT Ears: Decreased Hearing - Cardiovascular Cardiovascular: Dyspnea on Exertion, Pedal Edema - Gastrointestinal Gastrointestinal: Constipation - Genitourinary Genitourinary: Urinary Frequency, Voiding Freq/Small Amts - Musculoskeletal Musculoskeletal: Arthralgias - Neurological Neurological: Abnormal Hearing, Dizziness - Psychiatric Psychiatric: Anxiety, Confusion, Depression Past Patient History - Past Medical History & Family History Past Medical History?: Yes - Past Social History Smoking Status: Never Smoked - CARDIAC Hx Cardiac Disorders: Yes (CABG 06/25/16@[facility]; Ablation/CABG/ Valave Replacement. Hx: Aortic Stenosis.) Hx Atrial Fibrillation: Yes (presently in sinus rhythm) Hx Congestive Heart Failure: Yes (Developed after CABG) Hx Hypertension: Yes Hx Pacemaker: Yes ( in 06/2016) Hx Peripheral Edema: Yes Other/Comment: Hx of Aortic Stenosis. - PULMONARY Hx Respiratory Disorders: No Hx Asthma: No Hx Bronchitis: No Hx Chronic Obstructive Pulmonary Disease (COPD): No Hx Sleep Apnea: No - NEUROLOGICAL Hx Neurological Disorder: Yes (Periods of confusion at night.) Hx Alzheimer's Disease: No HX Cerebrovascular Accident: No - HEENT Hx HEENT Problems: No Hx Blind: No Hx Cataracts: No Hx Glaucoma: No Hx Macular Degeneration: No - RENAL Hx Chronic Kidney Disease: Yes (Stage III CKD. Right kidney atrophied.) Hx Kidney Stones: No - ENDOCRINE/METABOLIC Hx Endocrine Disorders: Yes (Type II diabetes mellitus) Hx Diabetes Mellitus Type 2: Yes Hx Hypothyroidism: Yes - HEMATOLOGICAL/ONCOLOGICAL Hx Blood Disorders: No - INTEGUMENTARY Hx Dermatological Problems: No - MUSCULOSKELETAL/RHEUMATOLOGICAL Hx Musculoskeletal Disorders: Yes Hx Falls: Yes - GASTROINTESTINAL Hx Gastrointestinal Disorders: No Hx Constipation: Yes - GENITOURINARY/GYNECOLOGICAL Hx Genitourinary Disorders: Yes Hx Prostate Problems: Yes (BPH) Hx Urinary Tract Infection: Yes - PSYCHIATRIC Hx Psychophysiologic Disorder: No Hx Anxiety: Yes Hx Substance Use: No - SURGICAL HISTORY Hx Surgeries: Yes (CABG/Ablation/Valve replacement @ [facility] 06/25/16.) Hx Appendectomy: Yes Hx Open Heart Surgery: Yes (06/25/16 @ [facility].) Hx Valve Replacement: Yes (06/25/16 @ [facility].) Meds Allergies/Adverse Reactions: Allergies Allergy/AdvReac Type Severity Reaction Status Date / Time codeine Allergy Unknown URTICARIA Verified 08/20/16 08:36 Physical Exam - Constitutional Appears: No Acute Distress Additional comments: lethargic but easily arousable - Head Exam Head Exam: ATRAUMATIC, NORMOCEPHALIC - Eye Exam Eye Exam: EOMI, Normal appearance, PERRL. absent: Conjunctival injection, Nystagmus, Periorbital swelling, Periorbital tenderness, Scleral icterus Pupil Exam: NORMAL ACCOMODATION. absent: Fixed, Irregular, Miosis, Mydriatic, PERRL, Unequal - ENT Exam ENT Exam: Mucous Membranes Moist - Neck Exam Neck exam: Positive for: Normal Inspection. Negative for: Full Rom, Lymphadenopathy, Meningismus, Tenderness, Thyromegaly - Respiratory Exam Respiratory Exam: Clear to Auscultation Bilateral. absent: Accessory Muscle Use , Chest Wall Tenderness, Decreased Breath Sounds, Prolonged Expiratory Phase, Rales, Rhonchi, Wheezes, Respiratory Distress, Stridor, NORMAL BREATHING PATTERN - Cardiovascular Exam Cardiovascular Exam: REGULAR RHYTHM. absent: Bradycardia, Tachycardia, Clicks, Diastolic murmur, Gallop, Irregular Rhythm, JVD, RRR, Rubs, +S1, +S2, +S4, Systolic Murmur - GI/Abdominal Exam GI & Abdominal Exam: Normal Bowel Sounds, Soft. absent: Bruit, Diminished Bowel Sounds, Distended, Firm, Guarding, Hernia, Hyperactive Bowel Sounds, Hypoactive Bowel Sounds, Mass, Organomegaly, Pulsatile Mass, Rebound, Rigid, Tenderness - Rectal Exam Rectal Exam: Deferred - Exam Exam: NORMAL INSPECTION - Extremities Exam Extremities exam: Positive for: full ROM, normal inspection - Neurological Exam Neurological exam: Alert, CN II-XII Intact, Oriented x3 - Psychiatric Exam Psychiatric exam: Depressed - Skin Skin Exam: Dry, Normal Color, Warm Results - Vital Signs Recent Vital Signs: Last Vital Signs Temp 98.8 F 08/26/16 12:00 Pulse 67 08/26/16 12:00 Resp 19 08/26/16 12:00 BP 164/79 H 08/26/16 12:00 Pulse Ox 99 08/26/16 05:57 - Labs Result Diagrams: 08/26/16 07:10 08/26/16 07:10 Labs: Laboratory Results - last 24 hr 08/26/16 08/26/16 08/26/16 07:10 07:10 07:10 WBC 16.5 H D RBC 3.29 L Hgb 9.7 L Hct 29.9 L MCV 90.9 MCH 29.5 MCHC 32.4 RDW 18.2 H Plt Count 326 MPV 9.0 Sodium 127 L Potassium 3.9 Chloride 89 L Carbon Dioxide 35 H Anion Gap 7 L BUN 26 H Creatinine 1.4 Est GFR ( Amer) 59 Est GFR (Non-Af Amer) 49 Random Glucose 228 H Calcium 8.1 L Total Bilirubin 1.3 AST 41 ALT 42 Alkaline Phosphatase 149 H Total Protein 5.9 Albumin 2.3 L Globulin 3.6 Albumin/Globulin Ratio 0.6 L Procalcitonin 0.34 Urine Color Urine Appearance Urine pH Ur Specific [place] Urine Protein Urine Glucose (UA) Urine Ketones Urine Blood Urine Nitrate Urine Bilirubin Urine Urobilinogen Ur Leukocyte Esterase Urine RBC Urine WBC Ur Epithelial Cells 08/26/16 12:00 WBC RBC Hgb Hct MCV MCH MCHC RDW Plt Count MPV Sodium Potassium Chloride Carbon Dioxide Anion Gap BUN Creatinine Est GFR ( Amer) Est GFR (Non-Af Amer) Random Glucose Calcium Total Bilirubin AST ALT Alkaline Phosphatase Total Protein Albumin Globulin Albumin/Globulin Ratio Procalcitonin Urine Color Yellow Urine Appearance Clear Urine pH 6.0 Ur Specific [place] 1.010 Urine Protein Negative Urine Glucose (UA) >=1000 Urine Ketones Negative Urine Blood Trace-lysed H Urine Nitrate Negative Urine Bilirubin Negative Urine Urobilinogen 0.2 Ur Leukocyte Esterase Small H Urine RBC 2 - 5 Urine WBC 5 - 10 Ur Epithelial Cells 10 - 12 - Imaging and Cardiology Chest x-ray Status: Image reviewed by me (residual left pleural effusion) Assessment & Plan (1) Fever Status: Acute Onset Date: ~08/24/16 (2) Leukocytosis (leucocytosis) Status: Acute (3) Hyponatremia Status: Acute (4) Anemia Status: Acute (5) Type II diabetes mellitus Status: Chronic (6) Congestive heart failure with left ventricular systolic dysfunction Status: Acute (7) Acute kidney injury superimposed on chronic kidney disease Status: Acute (8) Hypertension Status: Chronic (9) BPH (benign prostatic hyperplasia) Status: Chronic - Assessment and Plan (Free Text) Plan: Septic work up with leggett cultures. ID evaluation, IV Rocephin . Furosemide IV, Metoprolol, Amiodarone , I/O , electrolytes monitoring. Cardiology evaluation. Nephrology evaluation for renal/electrolytes management. Glucose monitoring, continue present insulin regimen with Levemir and Humalog. Decision To Admit - Pt Status Changed To: Hospital Disposition Of: Inpatient Admission - Admit Certification Admit to Inpatient:: After my assessment, the patient will require hospitalization for at least two midnights. This is because of the severity of symptoms shown, intensity of services needed, and/or the medical risk in this patient being treated as an outpatient. - . Bed Request Type: Telemetry
--- NOTE | 2016-08-26 20:16 | CARD ---
APPROVED REPORT EKG Measurement Heart [id number] <Conclusion> Sinus rhythm with 1st degree AV block Possible Left atrial enlargement Anterolateral infarct, age undetermined Abnormal ECG
[2016-08-27] MEDS: Pantoprazole 40 mg EC Tab PO SCH (06:04)
[2016-08-27 07:38] LABS: HEMOGLOBIN 9.5 gm/dL (14.0-18.0); MEAN CELL VOLUME 91.2 fL (80.0-105.0); MEAN CORPUSCULAR HEMOGLOBIN 29.8 pg (25.0-35.0); MEAN CORPUSCULAR HGB CONC 32.6 g/dl (31.0-37.0); RBC 3.19 10^6/uL (3.5-6.1); RED CELL DISTRIBUTION WIDTH 17.9 % (11.5-14.5); WHITE BLOOD COUNT 18.9 10^3/ul (4.5-11.0)
[2016-08-27] MEDS: Insulin Lispro 1 UNITS/0.01 ML SC SCH ×3 (07:49→16:33)
[2016-08-27] MEDS: Potassium Chloride 20 mEq ER Tab PO SCH (07:51)
[2016-08-27 07:56] LABS: ALB/GLOB RATIO 0.6 (1.1-1.8); ALBUMIN 2.2 g/dL (3.0-4.8); CALCIUM 8.1 mg/dL (8.4-10.5)
--- NOTE | 2016-08-27 08:36 | CP.PCM.PN ---
Subjective - Date & Time of Evaluation Date of Evaluation: 08/27/16 Time of Evaluation: 07:00 - Subjective Subjective: Stable on 2R. No chest pain, SOB. Seems depressed. V/S noted. RSR PE: Lungs: decreased BS at bases Cor.: S1S2 Abd.: soft Ext.: no edema Neuro: alert Labs noted: WBC=18,900, H/H 9.5/29.1, Na+= 131, Cr.= 1.4, LFT's OK ECG 08/26: RSR, PRWP, STTW changes c/w ischemia Objective - Vital Signs/Intake and Output Vital Signs (last 24 hours): Temp Pulse Resp BP Pulse Ox 98 F 77 20 136/74 96 08/27/16 05:54 08/27/16 05:54 08/27/16 05:54 08/27/16 05:54 08/27/16 05:54 Intake and Output: 08/27/16 08/27/16 06:59 18:59 Intake Total 240 Output Total 400 Balance -160 - Medications Medications: Current Medications Amiodarone HCl (Cordarone) 200 mg PO DAILY [facility] Last Admin: 08/26/16 09:06 Dose: 200 mg Docusate Sodium (Colace) 100 mg PO BID [facility] Last Admin: 08/26/16 17:05 Dose: 100 mg Furosemide (Lasix) 40 mg IVP DAILY [facility] Last Admin: 08/26/16 09:06 Dose: 40 mg Ceftaroline Fosamil 400 mg/ (Sodium Chloride) 100 mls @ 100 mls/hr IVPB Q12 [facility] PRN Reason: Protocol Stop: 09/04/16 10:01 Last Admin: 08/26/16 21:33 Dose: 100 mls/hr Insulin Detemir (Levemir) 9 unit SC HS [facility] Last Admin: 08/26/16 21:26 Dose: 9 unit Insulin Detemir (Levemir) 8 unit SC QAM [facility] Last Admin: 08/26/16 09:06 Dose: 8 unit Insulin Human Lispro (Humalog) 14 units SC AC [facility] Last Admin: 08/27/16 07:49 Dose: 14 units Metoprolol Tartrate (Lopressor) 25 mg PO BID [facility] Last Admin: 08/26/16 17:05 Dose: 25 mg Pantoprazole Sodium (Protonix Ec Tab) 40 mg PO 0600 [facility] Last Admin: 08/27/16 06:04 Dose: 40 mg Potassium Chloride (K-Dur 20 Meq Er Tab) 20 meq PO BRK [facility] Last Admin: 08/27/16 07:51 Dose: 20 meq Risperidone (Risperdal Tab) 0.25 mg PO HS [facility] PRN Reason: Protocol Last Admin: 08/26/16 21:14 Dose: 0.25 mg Sertraline HCl (Zoloft) 25 mg PO DAILY [facility] Last Admin: 08/26/16 10:59 Dose: 25 mg Tamsulosin HCl (Flomax) 0.4 mg PO QPM [facility] Last Admin: 08/26/16 17:05 Dose: 0.4 mg - Labs Labs: 08/27/16 07:15 08/27/16 07:15 PT 12.7 Seconds (9.9-11.8) H 08/25/16 14:30 INR 1.18 (0.93-1.08) H 08/25/16 14:30 APTT 29.3 Seconds (23.7-30.8) 08/25/16 14:30 Assessment and Plan - Assessment and Plan (Free Text) Assessment: Fever/Lethergy Depression S/P AVR/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 As per Dr. House, ID and Renal Monitor labs, I/O, sats., etc. Will follow.
--- NOTE | 2016-08-27 10:00 | CP.PCM.PN ---
Subjective - Date & Time of Evaluation Date of Evaluation: 08/27/16 Time of Evaluation: 08:25 - Subjective Subjective: WEAK Objective - Vital Signs/Intake and Output Vital Signs (last 24 hours): Temp Pulse Resp BP Pulse Ox 98 F 77 20 136/74 96 08/27/16 05:54 08/27/16 05:54 08/27/16 05:54 08/27/16 05:54 08/27/16 05:54 Intake and Output: 08/27/16 08/27/16 06:59 18:59 Intake Total 240 Output Total 400 Balance -160 - Medications Medications: Current Medications Amiodarone HCl (Cordarone) 200 mg PO DAILY [facility] Last Admin: 08/26/16 09:06 Dose: 200 mg Docusate Sodium (Colace) 100 mg PO BID [facility] Last Admin: 08/26/16 17:05 Dose: 100 mg Furosemide (Lasix) 40 mg IVP DAILY [facility] Last Admin: 08/26/16 09:06 Dose: 40 mg Ceftaroline Fosamil 400 mg/ (Sodium Chloride) 100 mls @ 100 mls/hr IVPB Q12 [facility] PRN Reason: Protocol Stop: 09/04/16 10:01 Last Admin: 08/26/16 21:33 Dose: 100 mls/hr Insulin Detemir (Levemir) 9 unit SC HS [facility] Last Admin: 08/26/16 21:26 Dose: 9 unit Insulin Detemir (Levemir) 8 unit SC QAM [facility] Last Admin: 08/26/16 09:06 Dose: 8 unit Insulin Human Lispro (Humalog) 14 units SC AC [facility] Last Admin: 08/27/16 07:49 Dose: 14 units Metoprolol Tartrate (Lopressor) 25 mg PO BID [facility] Last Admin: 08/26/16 17:05 Dose: 25 mg Pantoprazole Sodium (Protonix Ec Tab) 40 mg PO 0600 [facility] Last Admin: 08/27/16 06:04 Dose: 40 mg Potassium Chloride (K-Dur 20 Meq Er Tab) 20 meq PO BRK [facility] Last Admin: 08/27/16 07:51 Dose: 20 meq Risperidone (Risperdal Tab) 0.25 mg PO HS [facility] PRN Reason: Protocol Last Admin: 08/26/16 21:14 Dose: 0.25 mg Sertraline HCl (Zoloft) 25 mg PO DAILY [facility] Last Admin: 08/26/16 10:59 Dose: 25 mg Tamsulosin HCl (Flomax) 0.4 mg PO QPM [facility] Last Admin: 08/26/16 17:05 Dose: 0.4 mg - Labs Labs: 08/27/16 07:15 08/27/16 07:15 PT 12.7 Seconds (9.9-11.8) H 08/25/16 14:30 INR 1.18 (0.93-1.08) H 08/25/16 14:30 APTT 29.3 Seconds (23.7-30.8) 08/25/16 14:30 - Constitutional Appears: Well - Head Exam Head Exam: ATRAUMATIC, NORMAL INSPECTION, NORMOCEPHALIC - Eye Exam Eye Exam: EOMI, Normal appearance, PERRL Pupil Exam: NORMAL ACCOMODATION, PERRL - ENT Exam ENT Exam: Mucous Membranes Moist, Normal Exam - Neck Exam Neck Exam: Full ROM, Normal Inspection. absent: Lymphadenopathy - Respiratory Exam Respiratory Exam: Clear to Ausculation Bilateral, NORMAL BREATHING PATTERN - Cardiovascular Exam Cardiovascular Exam: REGULAR RHYTHM, +S1, +S2. absent: Murmur - GI/Abdominal Exam GI & Abdominal Exam: Soft, Normal Bowel Sounds. absent: Tenderness - Rectal Exam Rectal Exam: NORMAL INSPECTION - Exam Exam: Circumcision, NORMAL INSPECTION External exam: NORMAL EXTERNAL EXAM Speculum exam: NORMAL SPECULUM EXAM Bimanual exam: NORMAL BIMANUAL EXAM - Extremities Exam Extremities Exam: Full ROM, Normal Capillary Refill, Normal Inspection. absent : Joint Swelling, Pedal Edema - Back Exam Back Exam: NORMAL INSPECTION - Neurological Exam Neurological Exam: Alert, Awake, CN II-XII Intact, Normal Gait, Oriented x3 - Psychiatric Exam Psychiatric exam: Normal Affect, Normal Mood - Skin Skin Exam: Dry, Intact, Normal Color, Warm Assessment and Plan (1) Fever Status: Acute (2) Leukocytosis (leucocytosis) Status: Acute (3) Acute kidney injury Status: Acute (4) Anemia Status: Acute - Assessment and Plan (Free Text) Plan: ON TEFL CK RUIZ CULTURES
[2016-08-27] MEDS: Insulin Detemir 100 units/ml Vial (Levemir) SC SCH ×2 (10:48→21:40)
--- NOTE | 2016-08-27 12:58 | CT ---
PROCEDURE: CT Chest, Abdomen without intravenous contrast HISTORY: fever, sepsis, history of retroperitonal hematoma COMPARISON: 08/19/2016 TECHNIQUE: Radiation dose: Total exam DLP = 649 mGy-cm. This CT exam was performed using one or more of the following dose reduction techniques: Automated exposure control, adjustment of the mA and/or kV according to patient size, and/or use of iterative reconstruction technique. FINDINGS: CT CHEST WITHOUT CONTRAST: LUNGS: Consolidation at the left lung base with air bronchograms. Minimal consolidation a right lung base MEDIASTINUM: Unremarkable. Normal caliber aorta and pulmonary arterial trunk. Normal size heart. LYMPH NODES: Unremarkable. PLEURA: Moderate size left effusion. Small right effusion BONES: Unremarkable. OTHER FINDINGS: None. CT ABDOMEN: LIVER: Unremarkable. No gross lesion or ductal dilatation. GALLBLADDER AND BILE DUCTS: Unremarkable. PANCREAS: Unremarkable. No gross lesion or ductal dilatation. SPLEEN: Unremarkable. ADRENALS: Unremarkable. No mass. KIDNEYS AND URETERS: Solitary left kidney. There is no significant change in the right-sided retroperitoneal hematoma. This has a complex lobulated and septated appearance. This measures 12.4 cm AP x 11 cm width. VASCULATURE: Unremarkable. No aortic aneurysm. BOWEL: Unremarkable. No obstruction. No gross mural thickening. PERITONEUM: Unremarkable. No free fluid. No free air. LYMPH NODES: Unremarkable. No enlarged lymph nodes. BONES: No acute fracture. OTHER FINDINGS: None. IMPRESSION: Stable appearance of chronic right-sided retroperitoneal hematoma. Bilateral pleural effusions and bibasilar infiltrates left greater than right
--- NOTE | 2016-08-27 15:01 | CP.PCM.CON ---
History of Present Illness - History of Present Illness History of Present Illness: Reason for Consultation: Hyponatremia, Chronic Kidney Disease Stage 3, UTI HPI: 76 yr/ol male previously unknown to me admitted 08/25 with complaints of fever of 101, lethargy, burning in the urine. As per PMD's note, patient was recently discharged from TCU. Developed fever two days after discharge. He denies cough, shortness of breath, chest pain, abdominal pain, nausea/ vomitting. He is found to have sodium of 127, BUN 26, creatinine of 1.4. Today his sodium is 131. He's lying in bed, is at bedside. She reports intermitent shortness of breath. PMSHX: NIDDM, HTN, CAD, CABG, AVR Jul 02 2016, UTI, Retroperitoneal Bleeding in July. FHX: NC SHX: No smoking, no alcohol abuse, no IVDA ROS: All systems reviewed, pertinent positives as mentioned in HPI, rest unremarkable Medications: list reviewed PE: elderly male lying in bed Vital Signs: Reviewed HEENT: NC, AT, JENNIFER Neck: supple, no JVD, no bruit Lungs: B/L equal air entry, ronchi CVS: S1 S2 RRR, no murmur Abd: soft, non-distended, non-tender, bowel sounds present EXT: No edema Labs: reviewed Assessment and Plan: 1. Hyponatremia, suspect secondary to CHF/volume overload 2. KOBE superimposed on CKD3 3. Leukocytosis, HCA infection suspected 4. NIDDM 5. Hypertension 6. CAD, recent CABG/AVR 7. Anemia 1. Continue lasix 2. Keep O>I 3. Replace K 4. Check MG 5. Dose all antibiotics for CrCl ~ 30ml/min 6. Monitor finger sticks and continue insulin coverage Thank you for the courtesy of this consultation, will follow up closely Past Patient History - Past Medical History & Family History Past Medical History?: Yes - Past Social History Smoking Status: Never Smoked - CARDIAC Hx Cardiac Disorders: Yes (CABG 06/25/16@[facility]; Ablation/CABG/ Valave Replacement. Hx: Aortic Stenosis.) Hx Atrial Fibrillation: Yes (presently in sinus rhythm) Hx Congestive Heart Failure: Yes (Developed after CABG) Hx Hypertension: Yes Hx Pacemaker: Yes ( in 06/2016) Hx Peripheral Edema: Yes Other/Comment: Hx of Aortic Stenosis. - PULMONARY Hx Respiratory Disorders: No Hx Asthma: No Hx Bronchitis: No Hx Chronic Obstructive Pulmonary Disease (COPD): No Hx Sleep Apnea: No - NEUROLOGICAL Hx Neurological Disorder: Yes (Periods of confusion at night.) Hx Alzheimer's Disease: No HX Cerebrovascular Accident: No - HEENT Hx HEENT Problems: No Hx Blind: No Hx Cataracts: No Hx Glaucoma: No Hx Macular Degeneration: No - RENAL Hx Chronic Kidney Disease: Yes (Stage III CKD. Right kidney atrophied.) Hx Kidney Stones: No - ENDOCRINE/METABOLIC Hx Endocrine Disorders: Yes (Type II diabetes mellitus) Hx Diabetes Mellitus Type 2: Yes Hx Hypothyroidism: Yes - HEMATOLOGICAL/ONCOLOGICAL Hx Blood Disorders: No - INTEGUMENTARY Hx Dermatological Problems: No - MUSCULOSKELETAL/RHEUMATOLOGICAL Hx Musculoskeletal Disorders: Yes Hx Falls: Yes - GASTROINTESTINAL Hx Gastrointestinal Disorders: No Hx Constipation: Yes - GENITOURINARY/GYNECOLOGICAL Hx Genitourinary Disorders: Yes Hx Prostate Problems: Yes (BPH) Hx Urinary Tract Infection: Yes - PSYCHIATRIC Hx Psychophysiologic Disorder: No Hx Anxiety: Yes Hx Substance Use: No - SURGICAL HISTORY Hx Surgeries: Yes (CABG/Ablation/Valve replacement @ [facility] 06/25/16.) Hx Appendectomy: Yes Hx Open Heart Surgery: Yes (06/25/16 @ [facility].) Hx Valve Replacement: Yes (06/25/16 @ [facility].) Meds Allergies/Adverse Reactions: Allergies Allergy/AdvReac Type Severity Reaction Status Date / Time codeine Allergy Unknown URTICARIA Verified 08/20/16 08:36 - Medications Medications: Current Medications Amiodarone HCl (Cordarone) 200 mg PO DAILY [facility] Last Admin: 08/27/16 10:50 Dose: 200 mg Docusate Sodium (Colace) 100 mg PO BID [facility] Last Admin: 08/27/16 10:50 Dose: 100 mg Furosemide (Lasix) 40 mg IVP DAILY [facility] Last Admin: 08/27/16 10:47 Dose: 40 mg Ceftaroline Fosamil 400 mg/ (Sodium Chloride) 100 mls @ 100 mls/hr IVPB Q12 [facility] PRN Reason: Protocol Stop: 09/04/16 10:01 Last Admin: 08/27/16 10:49 Dose: 100 mls/hr Insulin Detemir (Levemir) 9 unit SC HS [facility] Last Admin: 08/26/16 21:26 Dose: 9 unit Insulin Detemir (Levemir) 8 unit SC QAM [facility] Last Admin: 08/27/16 10:48 Dose: 8 unit Insulin Human Lispro (Humalog) 14 units SC AC [facility] Last Admin: 08/27/16 11:57 Dose: 14 units Metoprolol Tartrate (Lopressor) 25 mg PO BID [facility] Last Admin: 08/27/16 10:49 Dose: 25 mg Pantoprazole Sodium (Protonix Ec Tab) 40 mg PO 0600 [facility] Last Admin: 08/27/16 06:04 Dose: 40 mg Potassium Chloride (K-Dur 20 Meq Er Tab) 20 meq PO BRK [facility] Last Admin: 08/27/16 07:51 Dose: 20 meq Risperidone (Risperdal Tab) 0.25 mg PO HS [facility] PRN Reason: Protocol Last Admin: 08/26/16 21:14 Dose: 0.25 mg Sertraline HCl (Zoloft) 25 mg PO DAILY [facility] Last Admin: 08/27/16 10:49 Dose: 25 mg Tamsulosin HCl (Flomax) 0.4 mg PO QPM [facility] Last Admin: 08/26/16 17:05 Dose: 0.4 mg Results - Vital Signs Recent Vital Signs: Last Vital Signs Temp 98.3 F 08/27/16 12:00 Pulse 78 08/27/16 12:00 Resp 18 08/27/16 12:00 BP 167/85 H 08/27/16 12:00 Pulse Ox 96 08/27/16 05:54 - Labs Result Diagrams: 08/27/16 07:15 08/27/16 07:15
--- NOTE | 2016-08-27 20:10 | CP.PCM.PN ---
Subjective - Date & Time of Evaluation Date of Evaluation: 08/27/16 Time of Evaluation: 09:30 - Subjective Subjective: Patient c/o fatigue and dyspnea. He has good appetite but feels constipated. He is on IV Teflaro day 2 . Objective - Vital Signs/Intake and Output Vital Signs (last 24 hours): Temp Pulse Resp BP Pulse Ox 98.7 F 73 20 160/81 H 96 08/27/16 18:00 08/27/16 18:00 08/27/16 18:00 08/27/16 18:00 08/27/16 05:54 Intake and Output: 08/27/16 08/28/16 18:59 06:59 Intake Total 600 Output Total 1200 Balance -600 - Medications Medications: Current Medications Amiodarone HCl (Cordarone) 200 mg PO DAILY [facility] Last Admin: 08/27/16 10:50 Dose: 200 mg Docusate Sodium (Colace) 100 mg PO BID [facility] Last Admin: 08/27/16 17:27 Dose: 100 mg Furosemide (Lasix) 40 mg IVP DAILY [facility] Last Admin: 08/27/16 10:47 Dose: 40 mg Ceftaroline Fosamil 400 mg/ (Sodium Chloride) 100 mls @ 100 mls/hr IVPB Q12 [facility] PRN Reason: Protocol Stop: 09/04/16 10:01 Last Admin: 08/27/16 10:49 Dose: 100 mls/hr Insulin Detemir (Levemir) 9 unit SC HS [facility] Last Admin: 08/26/16 21:26 Dose: 9 unit Insulin Detemir (Levemir) 8 unit SC QAM [facility] Last Admin: 08/27/16 10:48 Dose: 8 unit Insulin Human Lispro (Humalog) 14 units SC AC [facility] Last Admin: 08/27/16 16:33 Dose: 14 units Metoprolol Tartrate (Lopressor) 25 mg PO BID [facility] Last Admin: 08/27/16 17:26 Dose: 25 mg Pantoprazole Sodium (Protonix Ec Tab) 40 mg PO 0600 [facility] Last Admin: 08/27/16 06:04 Dose: 40 mg Potassium Chloride (K-Dur 20 Meq Er Tab) 20 meq PO BRK [facility] Last Admin: 08/27/16 07:51 Dose: 20 meq Risperidone (Risperdal Tab) 0.25 mg PO [facility] PRN Reason: Protocol Last Admin: 08/26/16 21:14 Dose: 0.25 mg Sertraline HCl (Zoloft) 25 mg PO DAILY [facility] Last Admin: 08/27/16 10:49 Dose: 25 mg Tamsulosin HCl (Flomax) 0.4 mg PO QPM [facility] Last Admin: 08/27/16 17:27 Dose: 0.4 mg - Labs Labs: PT 12.7 Seconds (9.9-11.8) H 08/25/16 14:30 INR 1.18 (0.93-1.08) H 08/25/16 14:30 APTT 29.3 Seconds (23.7-30.8) 08/25/16 14:30 - Constitutional Appears: No Acute Distress - Head Exam Head Exam: ATRAUMATIC, NORMAL INSPECTION, NORMOCEPHALIC - Eye Exam Eye Exam: EOMI, Normal appearance Pupil Exam: NORMAL ACCOMODATION, PERRL - ENT Exam ENT Exam: Mucous Membranes Moist - Neck Exam Neck Exam: Full ROM. absent: Lymphadenopathy, Meningismus, Normal Inspection, Tenderness, Thyromegaly - Respiratory Exam Respiratory Exam: Decreased Breath Sounds. absent: Accessory Muscle Use, Chest Wall Tenderness, Clear to Ausculation Bilateral, Prolonged Expiratory Phase, Rales, Rhonchi, Wheezes, Respiratory Distress, Stridor, NORMAL BREATHING PATTERN - Cardiovascular Exam Cardiovascular Exam: REGULAR RHYTHM. absent: Bradycardia, Tachycardia, Clicks, Diastolic murmur, Gallop, Irregular Rhythm, JVD, RRR, Rubs, +S1, +S2, +S4, Murmur - GI/Abdominal Exam GI & Abdominal Exam: Soft, Normal Bowel Sounds. absent: Bruit, Distended, Firm , Guarding, Rigid, Tenderness, Diminished Bowel Sounds, Hernia, Hyperactive Bowel Sounds, Hypoactive Bowel Sounds, Organomegaly, Pulsatile Mass, Rebound, Mass - Extremities Exam Extremities Exam: Full ROM, Normal Capillary Refill, Pedal Edema - Neurological Exam Neurological Exam: Alert, Awake, CN II-XII Intact, Oriented x3 - Skin Skin Exam: Normal Color, Warm Assessment and Plan (1) Fever Status: Acute (2) Leukocytosis (leucocytosis) Assessment & Plan: Ct scan of chest and abdomen without contrast . Follow up of urine and blood cultures. Continue Teflaro Status: Acute (3) Hyponatremia Assessment & Plan: Nephrology consult, fluid restriction Status: Acute (4) Anemia Assessment & Plan: CBC monitoring Status: Acute (5) Type II diabetes mellitus Assessment & Plan: Continue present Insulin regimen , monitor for hypoglycemia. Status: Chronic (6) Congestive heart failure with left ventricular systolic dysfunction Assessment & Plan: We will continue furosemide IV Status: Acute (7) Acute kidney injury superimposed on chronic kidney disease Assessment & Plan: monitroing renal function,avoid renal toxicity Status: Acute (8) Hypertension Status: Chronic (9) BPH (benign prostatic hyperplasia) Assessment & Plan: monitor for urinary retention Status: Chronic
[2016-08-28] MEDS: Pantoprazole 40 mg EC Tab PO SCH (05:27)
[2016-08-28 06:59] LABS: HEMOGLOBIN 9.8 gm/dL (14.0-18.0); MEAN CELL VOLUME 90.7 fL (80.0-105.0); MEAN CORPUSCULAR HEMOGLOBIN 29.5 pg (25.0-35.0); MEAN CORPUSCULAR HGB CONC 32.6 g/dl (31.0-37.0); MEAN PLATELET VOLUME 9.1 fl (7.0-11.0); RBC 3.32 10^6/uL (3.5-6.1); RED CELL DISTRIBUTION WIDTH 17.6 % (11.5-14.5); WHITE BLOOD COUNT 18.3 10^3/ul (4.5-11.0)
[2016-08-28 07:07] LABS: ALB/GLOB RATIO 0.6 (1.1-1.8); ALBUMIN 2.4 g/dL (3.0-4.8); ALT/SGPT 52 U/L (7-56); AST/SGOT 61 U/L (15-59); BLOOD UREA NITROGEN 24 mg/dL (7-21); CALCIUM 7.9 mg/dL (8.4-10.5); GFR AFRICAN-AMERICAN > 60; GFR NON-AFRICAN AMERICAN 54
[2016-08-28] MEDS: Potassium Chloride 20 mEq ER Tab PO SCH (07:58)
[2016-08-28] MEDS: Insulin Lispro 1 UNITS/0.01 ML SC SCH ×3 (07:58→17:37)
--- NOTE | 2016-08-28 10:28 | CP.PCM.PN ---
Subjective - Date & Time of Evaluation Date of Evaluation: 08/28/16 Time of Evaluation: 08:00 - Subjective Subjective: DOING BETTER NO FEVER Objective - Vital Signs/Intake and Output Vital Signs (last 24 hours): Temp Pulse Resp BP Pulse Ox 97.7 F 72 20 150/78 95 08/28/16 06:00 08/28/16 06:00 08/28/16 06:00 08/28/16 06:00 08/28/16 06:00 Intake and Output: 08/28/16 08/28/16 06:59 18:59 Intake Total 340 Output Total 575 Balance -235 - Medications Medications: Current Medications Amiodarone HCl (Cordarone) 200 mg PO DAILY [facility] Last Admin: 08/27/16 10:50 Dose: 200 mg Docusate Sodium (Colace) 100 mg PO BID [facility] Last Admin: 08/27/16 17:27 Dose: 100 mg Doxycycline Hyclate (Doryx) 100 mg PO Q12 [facility] PRN Reason: Protocol Stop: 09/06/16 22:01 Furosemide (Lasix) 40 mg IVP Q12 [facility] Meropenem 1g/NS 100mL IVPB (Meropenem 1g/Ns 100ml Ivpb) 1 gm in 100 mls @ 100 mls/hr IVPB Q8 [facility] PRN Reason: Protocol Stop: 09/06/16 14:01 Insulin Detemir (Levemir) 9 unit SC HS [facility] Last Admin: 08/27/16 21:40 Dose: Not Given Insulin Detemir (Levemir) 8 unit SC QAM [facility] Last Admin: 08/27/16 10:48 Dose: 8 unit Insulin Human Lispro (Humalog) 14 units SC AC [facility] Last Admin: 08/28/16 07:58 Dose: 14 units Levothyroxine Sodium (Synthroid) 25 mcg PO 0600 [facility] Metoprolol Tartrate (Lopressor) 25 mg PO BID [facility] Last Admin: 08/27/16 17:26 Dose: 25 mg Pantoprazole Sodium (Protonix Ec Tab) 40 mg PO 0600 [facility] Last Admin: 08/28/16 05:27 Dose: 40 mg Potassium Chloride (K-Dur 20 Meq Er Tab) 20 meq PO BRK [facility] Last Admin: 08/28/16 07:58 Dose: 20 meq Risperidone (Risperdal Tab) 0.25 mg PO [facility] PRN Reason: Protocol Last Admin: 08/27/16 21:34 Dose: 0.25 mg Sertraline HCl (Zoloft) 25 mg PO DAILY [facility] Last Admin: 08/27/16 10:49 Dose: 25 mg Tamsulosin HCl (Flomax) 0.4 mg PO QPM [facility] Last Admin: 08/27/16 17:27 Dose: 0.4 mg - Labs Labs: 08/28/16 06:30 08/28/16 06:30 PT 12.7 Seconds (9.9-11.8) H 08/25/16 14:30 INR 1.18 (0.93-1.08) H 08/25/16 14:30 APTT 29.3 Seconds (23.7-30.8) 08/25/16 14:30 - Constitutional Appears: Well - Head Exam Head Exam: ATRAUMATIC, NORMAL INSPECTION, NORMOCEPHALIC - Eye Exam Eye Exam: EOMI, Normal appearance, PERRL Pupil Exam: NORMAL ACCOMODATION, PERRL - ENT Exam ENT Exam: Mucous Membranes Moist, Normal Exam - Neck Exam Neck Exam: Full ROM, Normal Inspection. absent: Lymphadenopathy - Respiratory Exam Respiratory Exam: Clear to Ausculation Bilateral, NORMAL BREATHING PATTERN - Cardiovascular Exam Cardiovascular Exam: REGULAR RHYTHM, +S1, +S2. absent: Murmur - GI/Abdominal Exam GI & Abdominal Exam: Soft, Normal Bowel Sounds. absent: Tenderness - Rectal Exam Rectal Exam: NORMAL INSPECTION - Exam Exam: Circumcision, NORMAL INSPECTION External exam: NORMAL EXTERNAL EXAM Speculum exam: NORMAL SPECULUM EXAM Bimanual exam: NORMAL BIMANUAL EXAM - Extremities Exam Extremities Exam: Full ROM, Normal Capillary Refill, Normal Inspection. absent : Joint Swelling, Pedal Edema - Back Exam Back Exam: NORMAL INSPECTION - Neurological Exam Neurological Exam: Alert, Awake, CN II-XII Intact, Normal Gait, Oriented x3 - Psychiatric Exam Psychiatric exam: Normal Affect, Normal Mood - Skin Skin Exam: Dry, Intact, Normal Color, Warm Assessment and Plan (1) Fever Status: Acute (2) Leukocytosis (leucocytosis) Status: Acute (3) Acute kidney injury Status: Acute (4) Anemia Status: Acute (5) HAP (hospital-acquired pneumonia) Status: Acute (6) Retroperitoneal hematoma Status: Acute - Assessment and Plan (Free Text) Plan: MERR /DOX CK RUIZ CULTURES
--- NOTE | 2016-08-28 10:31 | CP.PCM.PN ---
Subjective - Date & Time of Evaluation Date of Evaluation: 08/28/16 Time of Evaluation: 09:00 - Subjective Subjective: . Seen for followup on telemetry. Lying in bed. Appears comfortable. Awake and alert. He answers some questions. Appears somewhat brighter. Objective - Vital Signs/Intake and Output Vital Signs (last 24 hours): Temp Pulse Resp BP Pulse Ox 97.7 F 72 20 150/78 95 08/28/16 06:00 08/28/16 06:00 08/28/16 06:00 08/28/16 06:00 08/28/16 06:00 Intake and Output: 08/28/16 08/28/16 06:59 18:59 Intake Total 340 Output Total 575 Balance -235 - Medications Medications: Current Medications Amiodarone HCl (Cordarone) 200 mg PO DAILY [facility] Last Admin: 08/27/16 10:50 Dose: 200 mg Docusate Sodium (Colace) 100 mg PO BID [facility] Last Admin: 08/27/16 17:27 Dose: 100 mg Doxycycline Hyclate (Doryx) 100 mg PO Q12 [facility] PRN Reason: Protocol Stop: 09/06/16 22:01 Furosemide (Lasix) 40 mg IVP Q12 [facility] Meropenem 1g/NS 100mL IVPB (Meropenem 1g/Ns 100ml Ivpb) 1 gm in 100 mls @ 100 mls/hr IVPB Q8 [facility] PRN Reason: Protocol Stop: 09/06/16 14:01 Insulin Detemir (Levemir) 9 unit SC HS [facility] Last Admin: 08/27/16 21:40 Dose: Not Given Insulin Detemir (Levemir) 8 unit SC QAM [facility] Last Admin: 08/27/16 10:48 Dose: 8 unit Insulin Human Lispro (Humalog) 14 units SC AC [facility] Last Admin: 08/28/16 07:58 Dose: 14 units Levothyroxine Sodium (Synthroid) 25 mcg PO 0600 [facility] Metoprolol Tartrate (Lopressor) 25 mg PO BID [facility] Last Admin: 08/27/16 17:26 Dose: 25 mg Pantoprazole Sodium (Protonix Ec Tab) 40 mg PO 0600 [facility] Last Admin: 08/28/16 05:27 Dose: 40 mg Potassium Chloride (K-Dur 20 Meq Er Tab) 20 meq PO BRK [facility] Last Admin: 08/28/16 07:58 Dose: 20 meq Risperidone (Risperdal Tab) 0.25 mg PO HS [facility] PRN Reason: Protocol Last Admin: 08/27/16 21:34 Dose: 0.25 mg Sertraline HCl (Zoloft) 25 mg PO DAILY [facility] Last Admin: 08/27/16 10:49 Dose: 25 mg Tamsulosin HCl (Flomax) 0.4 mg PO QPM [facility] Last Admin: 08/27/16 17:27 Dose: 0.4 mg - Labs Labs: 08/28/16 06:30 08/28/16 06:30 PT 12.7 Seconds (9.9-11.8) H 08/25/16 14:30 INR 1.18 (0.93-1.08) H 08/25/16 14:30 APTT 29.3 Seconds (23.7-30.8) 08/25/16 14:30 - Constitutional Appears: In Acute Distress - Neck Exam Neck Exam: Full ROM, Normal Inspection. absent: Lymphadenopathy - Respiratory Exam Respiratory Exam: Clear to Ausculation Bilateral, NORMAL BREATHING PATTERN - Cardiovascular Exam Cardiovascular Exam: REGULAR RHYTHM, Murmur (systolic murmur at left sternal border) - GI/Abdominal Exam GI & Abdominal Exam: Soft, Normal Bowel Sounds. absent: Tenderness - Extremities Exam Extremities Exam: Full ROM, Normal Capillary Refill, Normal Inspection. absent : Joint Swelling, Pedal Edema - Psychiatric Exam Psychiatric exam: Flat Affect Assessment and Plan - Assessment and Plan (Free Text) Assessment: . Impression: * recent fever, source unclear. 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 Recommendations: * Continue current cardiac medications. * Continue to avoid anticoagulation. * Encouraged to increase activities as able. * Await followup recommendations of infectious disease service. * Would increase Zoloft to 50 mg if tolerated. * Avoid benzodiazepines. * Discussed with daughter at the bedside. Encouraged to increase his rehabilitation efforts.
[2016-08-28] MEDS: Insulin Detemir 100 units/ml Vial (Levemir) SC SCH ×2 (10:38→21:32)
--- NOTE | 2016-08-28 11:37 | CP.PCM.PN ---
Subjective - Date & Time of Evaluation Date of Evaluation: 08/28/16 Time of Evaluation: 11:24 - Subjective Subjective: The patient feels better, more alert. He developed dry cough since yesterday. His appetite is good. Objective - Vital Signs/Intake and Output Vital Signs (last 24 hours): Temp Pulse Resp BP Pulse Ox 97.7 F 72 20 150/78 95 08/28/16 06:00 08/28/16 10:37 08/28/16 06:00 08/28/16 10:37 08/28/16 06:00 Intake and Output: 08/28/16 08/28/16 06:59 18:59 Intake Total 340 Output Total 575 Balance -235 - Medications Medications: Current Medications Amiodarone HCl (Cordarone) 200 mg PO DAILY [facility] Last Admin: 08/28/16 10:37 Dose: 200 mg Docusate Sodium (Colace) 100 mg PO BID [facility] Last Admin: 08/28/16 10:33 Dose: 100 mg Doxycycline Hyclate (Doryx) 100 mg PO Q12 [facility] PRN Reason: Protocol Stop: 09/06/16 22:01 Furosemide (Lasix) 40 mg IVP Q12 [facility] Last Admin: 08/28/16 10:34 Dose: 40 mg Meropenem 1g/NS 100mL IVPB (Meropenem 1g/Ns 100ml Ivpb) 1 gm in 100 mls @ 100 mls/hr IVPB Q8 [facility] PRN Reason: Protocol Stop: 09/06/16 14:01 Insulin Detemir (Levemir) 9 unit SC HS [facility] Last Admin: 08/27/16 21:40 Dose: Not Given Insulin Detemir (Levemir) 8 unit SC QAM [facility] Last Admin: 08/28/16 10:38 Dose: 8 unit Insulin Human Lispro (Humalog) 14 units SC AC [facility] Last Admin: 08/28/16 07:58 Dose: 14 units Levothyroxine Sodium (Synthroid) 25 mcg PO 0600 [facility] Metoprolol Tartrate (Lopressor) 25 mg PO BID [facility] Last Admin: 08/28/16 10:34 Dose: 25 mg Pantoprazole Sodium (Protonix Ec Tab) 40 mg PO 0600 [facility] Last Admin: 08/28/16 05:27 Dose: 40 mg Potassium Chloride (K-Dur 20 Meq Er Tab) 20 meq PO BRK [facility] Last Admin: 08/28/16 07:58 Dose: 20 meq Risperidone (Risperdal Tab) 0.25 mg PO HS [facility] PRN Reason: Protocol Last Admin: 08/27/16 21:34 Dose: 0.25 mg Sertraline HCl (Zoloft) 50 mg PO DAILY [facility] Tamsulosin HCl (Flomax) 0.4 mg PO QPM [facility] Last Admin: 08/27/16 17:27 Dose: 0.4 mg - Labs Labs: 08/28/16 06:30 08/28/16 06:30 PT 12.7 Seconds (9.9-11.8) H 08/25/16 14:30 INR 1.18 (0.93-1.08) H 08/25/16 14:30 APTT 29.3 Seconds (23.7-30.8) 08/25/16 14:30 - Constitutional Appears: No Acute Distress - Head Exam Head Exam: NORMOCEPHALIC - Eye Exam Eye Exam: Normal appearance Pupil Exam: PERRL - ENT Exam ENT Exam: Mucous Membranes Moist - Neck Exam Neck Exam: Full ROM. absent: Lymphadenopathy, Meningismus, Normal Inspection, Tenderness, Thyromegaly - Respiratory Exam Respiratory Exam: Decreased Breath Sounds. absent: Accessory Muscle Use, Chest Wall Tenderness, Clear to Ausculation Bilateral, Prolonged Expiratory Phase, Rales, Rhonchi, Wheezes, Respiratory Distress, Stridor, NORMAL BREATHING PATTERN - Cardiovascular Exam Cardiovascular Exam: REGULAR RHYTHM. absent: Bradycardia, Tachycardia, Clicks, Diastolic murmur, Gallop, Irregular Rhythm, JVD, RRR, Rubs, +S1, +S2, +S4, Murmur - GI/Abdominal Exam GI & Abdominal Exam: Soft, Normal Bowel Sounds. absent: Bruit, Distended, Firm , Guarding, Rigid, Tenderness, Diminished Bowel Sounds, Hernia, Hyperactive Bowel Sounds, Hypoactive Bowel Sounds, Organomegaly, Pulsatile Mass, Rebound, Mass - Extremities Exam Extremities Exam: Full ROM, Normal Inspection - Neurological Exam Neurological Exam: Alert, Awake, Oriented x3 - Psychiatric Exam Psychiatric exam: Flat Affect - Skin Skin Exam: Normal Color, Warm Assessment and Plan (1) Leukocytosis (leucocytosis) Assessment & Plan: Etiology uncertain. IAntibiotics were changed as per ID. Follow up final cultures. We will consider Echo to rule out endocarditis Status: Acute (2) Fever Status: Resolved (3) Hyponatremia Status: Acute (4) Anemia Status: Acute (5) Type II diabetes mellitus Status: Chronic (6) Congestive heart failure with left ventricular systolic dysfunction Status: Acute (7) Acute kidney injury superimposed on chronic kidney disease Status: Acute (8) Hypertension Status: Chronic (9) Bilateral pleural effusion Status: Acute (10) Nontraumatic retroperitoneal hematoma Assessment & Plan: we will monitor . Status: Chronic (11) BPH (benign prostatic hyperplasia) Status: Chronic
[2016-08-28] MEDS: Meropenem 1g/NS 100mL IVPB 1 GM/100 ML PIGGYBACK IVPB SCH ×2 (13:41→21:31)
--- NOTE | 2016-08-28 23:31 | CP.PCM.PN ---
Subjective - Date & Time of Evaluation Date of Evaluation: 08/28/16 Time of Evaluation: 16:00 - Subjective Subjective: Subjective: No complaints PE: elderly male lying in bed Vital Signs: Reviewed HEENT: NC, AT, JENNIFER Neck: supple, no JVD, no bruit Lungs: B/L equal air entry, ronchi CVS: S1 S2 RRR, no murmur Abd: soft, non-distended, non-tender, bowel sounds present EXT: No edema Labs: reviewed Assessment and Plan: 1. Hyponatremia, suspect secondary to CHF/volume overload 2. KOBE superimposed on CKD3 3. Leukocytosis, HCA infection suspected 4. NIDDM 5. Hypertension 6. CAD, recent CABG/AVR 7. Anemia 1. Continue lasix 2. Keep O>I 3. Replace K 4. Check MG 5. Dose all antibiotics for CrCl ~ 30ml/min 6. Monitor finger sticks and continue insulin coverage 7. Check urine Na, Osmo Objective - Vital Signs/Intake and Output Vital Signs (last 24 hours): Temp Pulse Resp BP Pulse Ox 98 F 74 19 132/84 95 08/28/16 17:51 08/28/16 21:02 08/28/16 17:51 08/28/16 21:31 08/28/16 06:00 Intake and Output: 08/28/16 08/29/16 18:59 06:59 Intake Total 720 Output Total 700 Balance 20 - Medications Medications: Current Medications Amiodarone HCl (Cordarone) 200 mg PO DAILY [facility] Last Admin: 08/28/16 10:37 Dose: 200 mg Docusate Sodium (Colace) 100 mg PO BID [facility] Last Admin: 08/28/16 17:38 Dose: 100 mg Doxycycline Hyclate (Doryx) 100 mg PO Q12 [facility] PRN Reason: Protocol Stop: 09/06/16 22:01 Last Admin: 08/28/16 21:31 Dose: 100 mg Furosemide (Lasix) 40 mg IVP Q12 [facility] Last Admin: 08/28/16 21:31 Dose: 40 mg Meropenem 1g/NS 100mL IVPB (Meropenem 1g/Ns 100ml Ivpb) 1 gm in 100 mls @ 100 mls/hr IVPB Q8 [facility] PRN Reason: Protocol Stop: 09/06/16 14:01 Last Admin: 07/04/17 21:31 Dose: 100 mls/hr Insulin Detemir (Levemir) 9 unit SC HS [facility] Last Admin: 08/28/16 21:32 Dose: 9 unit Insulin Detemir (Levemir) 8 unit SC QAM [facility] Last Admin: 08/28/16 10:38 Dose: 8 unit Insulin Human Lispro (Humalog) 14 units SC AC [facility] Last Admin: 08/28/16 17:37 Dose: 14 units Levothyroxine Sodium (Synthroid) 25 mcg PO 0600 [facility] Metoprolol Tartrate (Lopressor) 25 mg PO BID [facility] Last Admin: 08/28/16 17:38 Dose: 25 mg Pantoprazole Sodium (Protonix Ec Tab) 40 mg PO 0600 [facility] Last Admin: 08/28/16 05:27 Dose: 40 mg Potassium Chloride (K-Dur 20 Meq Er Tab) 20 meq PO BRK [facility] Last Admin: 08/28/16 07:58 Dose: 20 meq Risperidone (Risperdal Tab) 0.25 mg PO HS [facility] PRN Reason: Protocol Last Admin: 08/28/16 21:32 Dose: 0.25 mg Sertraline HCl (Zoloft) 50 mg PO DAILY [facility] Tamsulosin HCl (Flomax) 0.4 mg PO QPM [facility] Last Admin: 08/28/16 17:38 Dose: 0.4 mg - Labs Labs: 08/28/16 06:30 08/28/16 06:30 PT 12.7 Seconds (9.9-11.8) H 08/25/16 14:30 INR 1.18 (0.93-1.08) H 08/25/16 14:30 APTT 29.3 Seconds (23.7-30.8) 08/25/16 14:30
[2016-08-29] MEDS: Pantoprazole 40 mg EC Tab PO SCH (05:18)
[2016-08-29] MEDS: Levothyroxine 25 MCG TAB PO SCH (05:18)
[2016-08-29] MEDS: Meropenem 1g/NS 100mL IVPB 1 GM/100 ML PIGGYBACK IVPB SCH ×3 (05:18→21:20)
[2016-08-29 06:40] LABS: BASO # 0.02 K/mm3 (0.0-2.0); BASO % 0.1 % (0.0-3.0); EOS # 0.1 (0.0-0.7); EOS % 0.3 % (1.5-5.0); GRAN % 80.7 % (50.0-68.0); HEMOGLOBIN 10.5 gm/dL (14.0-18.0); LYMPH # 1.9 (1.2-3.4); LYMPH % 11.7 % (22.0-35.0); MEAN CELL VOLUME 89.9 fL (80.0-105.0); MEAN CORPUSCULAR HEMOGLOBIN 29.5 pg (25.0-35.0); MEAN CORPUSCULAR HGB CONC 32.8 g/dl (31.0-37.0); MEAN PLATELET VOLUME 8.9 fl (7.0-11.0); MONO # 1.2 (0.1-0.6); MONO % 7.2 % (1.0-6.0); PLATELET COUNT 294 10^3/uL (120.0-450.0); RBC 3.56 10^6/uL (3.5-6.1); RED CELL DISTRIBUTION WIDTH 17.5 % (11.5-14.5); WHITE BLOOD COUNT 16.5 10^3/ul (4.5-11.0)
[2016-08-29 07:01] LABS: ALB/GLOB RATIO 0.6 (1.1-1.8); ALBUMIN 2.5 g/dL (3.0-4.8); ALT/SGPT 53 U/L (7-56); AST/SGOT 57 U/L (15-59); BLOOD UREA NITROGEN 30 mg/dL (7-21); GFR AFRICAN-AMERICAN > 60; GFR NON-AFRICAN AMERICAN 54
[2016-08-29] MEDS: Insulin Lispro 1 UNITS/0.01 ML SC SCH ×3 (08:34→18:03)
[2016-08-29] MEDS: Potassium Chloride 20 mEq ER Tab PO SCH (09:00)
[2016-08-29] MEDS: Insulin Detemir 100 units/ml Vial (Levemir) SC SCH ×2 (09:02→21:18)
--- NOTE | 2016-08-29 09:49 | CP.PCM.PN ---
Subjective - Date & Time of Evaluation Date of Evaluation: 08/29/16 Time of Evaluation: 08:00 - Subjective Subjective: . Seen for followup on telemetry. Appears more alert. Has no complaints. Did some walking yesterday. Remains afebrile. Sodium remains low at 127. Objective - Vital Signs/Intake and Output Vital Signs (last 24 hours): Temp Pulse Resp BP Pulse Ox 98.5 F 77 20 143/71 98 08/29/16 06:00 08/29/16 09:08 08/29/16 06:00 08/29/16 09:08 08/29/16 06:00 Intake and Output: 08/29/16 08/29/16 06:59 18:59 Intake Total 600 Output Total 3150 Balance -2550 - Medications Medications: Current Medications Amiodarone HCl (Cordarone) 200 mg PO DAILY [facility] Last Admin: 08/29/16 09:08 Dose: 200 mg Docusate Sodium (Colace) 100 mg PO BID [facility] Last Admin: 08/29/16 09:01 Dose: 100 mg Doxycycline Hyclate (Doryx) 100 mg PO Q12 [facility] PRN Reason: Protocol Stop: 09/06/16 22:01 Last Admin: 08/29/16 09:02 Dose: 100 mg Furosemide (Lasix) 40 mg IVP 0600,1800 [facility] Last Admin: 08/29/16 05:18 Dose: 40 mg Meropenem 1g/NS 100mL IVPB (Meropenem 1g/Ns 100ml Ivpb) 1 gm in 100 mls @ 100 mls/hr IVPB Q8 [facility] PRN Reason: Protocol Stop: 09/06/16 14:01 Last Admin: 08/29/16 05:18 Dose: 100 mls/hr Insulin Detemir (Levemir) 9 unit SC HS [facility] Last Admin: 08/28/16 21:32 Dose: 9 unit Insulin Detemir (Levemir) 8 unit SC QAM [facility] Last Admin: 08/29/16 09:02 Dose: 8 unit Insulin Human Lispro (Humalog) 14 units SC AC [facility] Last Admin: 08/29/16 08:34 Dose: Not Given Insulin Human Lispro (Humalog Low) 0 units SC ACHS [facility] PRN Reason: Protocol Levothyroxine Sodium (Synthroid) 25 mcg PO 0600 [facility] Last Admin: 08/29/16 05:18 Dose: 25 mcg Metoprolol Tartrate (Lopressor) 25 mg PO BID [facility] Last Admin: 08/29/16 09:02 Dose: 25 mg Pantoprazole Sodium (Protonix Ec Tab) 40 mg PO 0600 [facility] Last Admin: 08/29/16 05:18 Dose: 40 mg Potassium Chloride (K-Dur 20 Meq Er Tab) 20 meq PO BRK [facility] Last Admin: 08/29/16 09:00 Dose: 20 meq Risperidone (Risperdal Tab) 0.25 mg PO HS [facility] PRN Reason: Protocol Last Admin: 08/28/16 21:32 Dose: 0.25 mg Sertraline HCl (Zoloft) 50 mg PO DAILY [facility] Last Admin: 08/29/16 09:01 Dose: 50 mg Tamsulosin HCl (Flomax) 0.4 mg PO QPM [facility] Last Admin: 08/28/16 17:38 Dose: 0.4 mg - Labs Labs: 08/29/16 05:30 08/29/16 05:30 PT 12.7 Seconds (9.9-11.8) H 08/25/16 14:30 INR 1.18 (0.93-1.08) H 08/25/16 14:30 APTT 29.3 Seconds (23.7-30.8) 08/25/16 14:30 - Constitutional Appears: No Acute Distress - Neck Exam Neck Exam: Full ROM, Normal Inspection. absent: Lymphadenopathy Additional comments: . No JVD. - Respiratory Exam Additional comments: . Diminished breath sounds at the left base. No rales heard. - Cardiovascular Exam Cardiovascular Exam: REGULAR RHYTHM, Murmur (systolic murmur is present at the left sternal border.) - GI/Abdominal Exam GI & Abdominal Exam: Soft, Normal Bowel Sounds. absent: Tenderness - Extremities Exam Extremities Exam: Full ROM, Normal Capillary Refill, Normal Inspection. absent : Joint Swelling, Pedal Edema - Neurological Exam Neurological Exam: Alert - Psychiatric Exam Psychiatric exam: Flat Affect - Skin Skin Exam: Dry, Intact, Normal Color, Warm Assessment and Plan - Assessment and Plan (Free Text) Assessment: . Impression: * Recent fever, etiology unclear. Blood cultures negative. Remains on antibiotics. * Persistent hyponatremia, likely diuretic induced. * Status post recent coronary bypass surgery and aortic valve replacement, clinically stable * Paroxysmal atrial fibrillation, currently in sinus rhythm. On anticoagulation because of recent spontaneous retroperitoneal hematoma. * Deconditioning. * Probable depression. Plan: Recommendations: * Will hold Lasix and potassium for now. * Followup BMP. * Increase activities as able. * Continue rest of medications unchanged.
--- NOTE | 2016-08-29 10:49 | CP.PCM.PN ---
Subjective - Date & Time of Evaluation Date of Evaluation: 08/29/16 Time of Evaluation: 09:50 - Subjective Subjective: Patient is comfortable and not in distress, afebrile. Objective - Vital Signs/Intake and Output Vital Signs (last 24 hours): Temp Pulse Resp BP Pulse Ox 98.5 F 70 20 143/71 98 08/29/16 06:00 08/29/16 06:00 08/29/16 06:00 08/29/16 06:00 08/29/16 06:00 Intake and Output: 08/29/16 08/29/16 06:59 18:59 Intake Total 600 Output Total 3150 Balance -2550 - Medications Medications: Current Medications Amiodarone HCl (Cordarone) 200 mg PO DAILY [facility] Last Admin: 08/28/16 10:37 Dose: 200 mg Docusate Sodium (Colace) 100 mg PO BID [facility] Last Admin: 08/28/16 17:38 Dose: 100 mg Doxycycline Hyclate (Doryx) 100 mg PO Q12 [facility] PRN Reason: Protocol Stop: 09/06/16 22:01 Last Admin: 08/28/16 21:31 Dose: 100 mg Furosemide (Lasix) 40 mg IVP 0600,1800 [facility] Last Admin: 08/29/16 05:18 Dose: 40 mg Meropenem 1g/NS 100mL IVPB (Meropenem 1g/Ns 100ml Ivpb) 1 gm in 100 mls @ 100 mls/hr IVPB Q8 [facility] PRN Reason: Protocol Stop: 09/06/16 14:01 Last Admin: 08/29/16 05:18 Dose: 100 mls/hr Insulin Detemir (Levemir) 9 unit SC HS [facility] Last Admin: 08/28/16 21:32 Dose: 9 unit Insulin Detemir (Levemir) 8 unit SC QAM [facility] Last Admin: 08/28/16 10:38 Dose: 8 unit Insulin Human Lispro (Humalog) 14 units SC AC [facility] Last Admin: 08/28/16 17:37 Dose: 14 units Levothyroxine Sodium (Synthroid) 25 mcg PO 0600 [facility] Last Admin: 08/29/16 05:18 Dose: 25 mcg Metoprolol Tartrate (Lopressor) 25 mg PO BID [facility] Last Admin: 08/28/16 17:38 Dose: 25 mg Pantoprazole Sodium (Protonix Ec Tab) 40 mg PO 0600 [facility] Last Admin: 08/29/16 05:18 Dose: 40 mg Potassium Chloride (K-Dur 20 Meq Er Tab) 20 meq PO BRK [facility] Last Admin: 08/28/16 07:58 Dose: 20 meq Risperidone (Risperdal Tab) 0.25 mg PO HS [facility] PRN Reason: Protocol Last Admin: 08/28/16 21:32 Dose: 0.25 mg Sertraline HCl (Zoloft) 50 mg PO DAILY [facility] Tamsulosin HCl (Flomax) 0.4 mg PO QPM [facility] Last Admin: 08/28/16 17:38 Dose: 0.4 mg - Labs Labs: 08/29/16 05:30 08/29/16 05:30 PT 12.7 Seconds (9.9-11.8) H 08/25/16 14:30 INR 1.18 (0.93-1.08) H 08/25/16 14:30 APTT 29.3 Seconds (23.7-30.8) 08/25/16 14:30 - Constitutional Appears: Non-toxic, No Acute Distress - Neck Exam Neck Exam: absent: Meningismus - Respiratory Exam Respiratory Exam: Decreased Breath Sounds - Cardiovascular Exam Cardiovascular Exam: +S1, +S2 - GI/Abdominal Exam GI & Abdominal Exam: Soft. absent: Tenderness Assessment and Plan - Assessment and Plan (Free Text) Plan: Assessment Consider sepsis due to bilateral hospital-acquired pneumonia chronic right sided retroperitoneal hematoma CAD S/P CABG and aortic valve replacement (history of aortic stenosis) history of atrial fibrillation chronic renal failure DM BPH hypothyroidism Plan Continue Doxycycline and Merrem pending final culture results continue to monitor clinical response
--- NOTE | 2016-08-29 11:31 | PQF GENQUE ---
This form is a permanent part of the medical record Dr. Sparks, Chart reflects that this patient was admitted with fever, leukocytosis with hx UTI. Labs also with elevated BNP, low sodium. Cultures all negative, CT chest with bibasilar infiltrates and ID noting hospital acquired pneumonia, patient on antibiotics. Documentation notes that etiology of fever and leukocytosis still unclear and you are considering echo to r/o endocarditis. With all these findings noted, please clarify what was the diagnosis that necessitated admission. Clarification of your documentation is requested to better reflect the severity of illness and intensity of treatment of your patient. Indicators present [] Specify: [ Sepsis] [] Specify: [] [] Specify: [] [] Specify: [] Location in the medical record that reflects the above clinical findings: [H+P , laboratory test, CT scan of chest] Treatment Provided: [IV antibiotics-Daptomycin, Merrem] PHYSICIAN'S RESPONSE Based on your medical judgment of the clinical indicators outlined above please clarify the following: [] Practitioner response [] If unable to determine, please check the box, sign and date. Present On Admission (POA) Indicator: [X] Present at the time of admission [] Not present at the time of admission [] Clinically Undetermined In responding to this query, please exercise your independent professional judgment. The fact that a question is asked does not imply that any particular answer is desired or expected. Thank you for your clarification on this documentation. 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
[2016-08-29] MEDS: Insulin Lispro (humaLOG) LOW Coverage SC SCH ×3 (12:33→21:43)
[2016-08-29] MEDS ORDERED: Tolvaptan 15 MG TAB PO STA (18:03)
--- NOTE | 2016-08-29 18:03 | CP.PCM.PN ---
Subjective - Date & Time of Evaluation Date of Evaluation: 08/29/16 Time of Evaluation: 13:30 - Subjective Subjective: Subjective: Subjective: No complaints PE: elderly male lying in bed Vital Signs: Reviewed HEENT: NC, AT, JENNIFER Neck: supple, no JVD, no bruit Lungs: B/L equal air entry, ronchi CVS: S1 S2 RRR, no murmur Abd: soft, non-distended, non-tender, bowel sounds present EXT: No edema Labs: reviewed Assessment and Plan: 1. 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 KOBE superimposed on CKD3 3. Leukocytosis, HCA infection suspected 4. NIDDM 5. Hypertension 6. CAD, recent CABG/AVR 7. Anemia 1. Continue lasix 2. Keep O>I 3. Replace K 4. Check MG 5. Dose all antibiotics for CrCl ~ 30ml/min 6. Monitor finger sticks and continue insulin coverage 7. Check urine Na, Osmo 8. Tolvaptan 15mg x 1dose Objective - Vital Signs/Intake and Output Vital Signs (last 24 hours): Temp Pulse Resp BP Pulse Ox 99.8 F H 74 20 105/54 L 98 08/29/16 17:42 08/29/16 17:42 08/29/16 17:42 08/29/16 17:42 08/29/16 06:00 Intake and Output: 08/29/16 08/29/16 06:59 18:59 Intake Total 600 Output Total 3150 Balance -2550 - Medications Medications: Current Medications Amiodarone HCl (Cordarone) 200 mg PO DAILY [facility] Last Admin: 08/29/16 09:08 Dose: 200 mg Docusate Sodium (Colace) 100 mg PO BID [facility] Last Admin: 08/29/16 09:01 Dose: 100 mg Doxycycline Hyclate (Doryx) 100 mg PO Q12 [facility] PRN Reason: Protocol Stop: 09/06/16 22:01 Last Admin: 08/29/16 09:02 Dose: 100 mg Furosemide (Lasix) 40 mg IVP 0600,1800 [facility] Last Admin: 08/29/16 05:18 Dose: 40 mg Meropenem 1g/NS 100mL IVPB (Meropenem 1g/Ns 100ml Ivpb) 1 gm in 100 mls @ 100 mls/hr IVPB Q8 [facility] PRN Reason: Protocol Stop: 09/06/16 14:01 Last Admin: 08/29/16 14:02 Dose: 100 mls/hr Insulin Detemir (Levemir) 9 unit SC HS [facility] Last Admin: 08/28/16 21:32 Dose: 9 unit Insulin Detemir (Levemir) 8 unit SC QAM [facility] Last Admin: 08/29/16 09:02 Dose: 8 unit Insulin Human Lispro (Humalog) 14 units SC AC [facility] Last Admin: 08/29/16 12:32 Dose: 14 units Insulin Human Lispro (Humalog Low) 0 units SC ACHS [facility] PRN Reason: Protocol Last Admin: 08/29/16 12:33 Dose: 3 units Levothyroxine Sodium (Synthroid) 25 mcg PO 0600 [facility] Last Admin: 08/29/16 05:18 Dose: 25 mcg Metoprolol Tartrate (Lopressor) 25 mg PO BID [facility] Last Admin: 08/29/16 09:02 Dose: 25 mg Pantoprazole Sodium (Protonix Ec Tab) 40 mg PO 0600 [facility] Last Admin: 08/29/16 05:18 Dose: 40 mg Potassium Chloride (K-Dur 20 Meq Er Tab) 20 meq PO BRK [facility] Last Admin: 08/29/16 09:00 Dose: 20 meq Risperidone (Risperdal Tab) 0.25 mg PO HS [facility] PRN Reason: Protocol Last Admin: 08/28/16 21:32 Dose: 0.25 mg Sertraline HCl (Zoloft) 50 mg PO DAILY [facility] Last Admin: 08/29/16 09:01 Dose: 50 mg Tamsulosin HCl (Flomax) 0.4 mg PO QPM [facility] Last Admin: 08/28/16 17:38 Dose: 0.4 mg - Labs Labs: 08/29/16 05:30 08/29/16 05:30 PT 12.7 Seconds (9.9-11.8) H 08/25/16 14:30 INR 1.18 (0.93-1.08) H 08/25/16 14:30 APTT 29.3 Seconds (23.7-30.8) 08/25/16 14:30
--- NOTE | 2016-08-29 19:55 | CP.PCM.PN ---
Subjective - Date & Time of Evaluation Date of Evaluation: 08/29/16 Time of Evaluation: 08:00 - Subjective Subjective: The patient is more alert and feels better. Cough improved. He c/o being fatigued. He has very good appetite. Objective - Vital Signs/Intake and Output Vital Signs (last 24 hours): Temp Pulse Resp BP Pulse Ox 99.8 F H 76 20 105/54 L 98 08/29/16 17:42 08/29/16 18:00 08/29/16 17:42 08/29/16 18:01 08/29/16 06:00 - Medications Medications: Current Medications Amiodarone HCl (Cordarone) 200 mg PO DAILY [facility] Last Admin: 08/29/16 09:08 Dose: 200 mg Docusate Sodium (Colace) 100 mg PO BID [facility] Last Admin: 08/29/16 18:01 Dose: 100 mg Doxycycline Hyclate (Doryx) 100 mg PO Q12 [facility] PRN Reason: Protocol Stop: 09/06/16 22:01 Last Admin: 08/29/16 09:02 Dose: 100 mg Furosemide (Lasix) 40 mg IVP 0600,1800 [facility] Last Admin: 08/29/16 18:01 Dose: 40 mg Meropenem 1g/NS 100mL IVPB (Meropenem 1g/Ns 100ml Ivpb) 1 gm in 100 mls @ 100 mls/hr IVPB Q8 [facility] PRN Reason: Protocol Stop: 09/06/16 14:01 Last Admin: 08/29/16 14:02 Dose: 100 mls/hr Insulin Detemir (Levemir) 9 unit SC HS [facility] Last Admin: 08/28/16 21:32 Dose: 9 unit Insulin Detemir (Levemir) 8 unit SC QAM [facility] Last Admin: 08/29/16 09:02 Dose: 8 unit Insulin Human Lispro (Humalog) 14 units SC AC [facility] Last Admin: 08/29/16 18:03 Dose: 14 units Insulin Human Lispro (Humalog Low) 0 units SC ACHS [facility] PRN Reason: Protocol Last Admin: 08/29/16 18:03 Dose: 2 units Levothyroxine Sodium (Synthroid) 25 mcg PO 0600 [facility] Last Admin: 08/29/16 05:18 Dose: 25 mcg Metoprolol Tartrate (Lopressor) 25 mg PO BID [facility] Last Admin: 08/29/16 17:54 Dose: Not Given Pantoprazole Sodium (Protonix Ec Tab) 40 mg PO 0600 [facility] Last Admin: 08/29/16 05:18 Dose: 40 mg Potassium Chloride (K-Dur 20 Meq Er Tab) 20 meq PO BRK [facility] Last Admin: 08/29/16 09:00 Dose: 20 meq Risperidone (Risperdal Tab) 0.25 mg PO HS [facility] PRN Reason: Protocol Last Admin: 08/28/16 21:32 Dose: 0.25 mg Sertraline HCl (Zoloft) 50 mg PO DAILY [facility] Last Admin: 08/29/16 09:01 Dose: 50 mg Tamsulosin HCl (Flomax) 0.4 mg PO QPM [facility] Last Admin: 08/29/16 18:01 Dose: 0.4 mg - Labs Labs: 08/29/16 05:30 08/29/16 05:30 PT 12.7 Seconds (9.9-11.8) H 08/25/16 14:30 INR 1.18 (0.93-1.08) H 08/25/16 14:30 APTT 29.3 Seconds (23.7-30.8) 08/25/16 14:30 - Constitutional Appears: No Acute Distress - Head Exam Head Exam: ATRAUMATIC, NORMOCEPHALIC - Eye Exam Pupil Exam: NORMAL ACCOMODATION, PERRL - ENT Exam ENT Exam: Mucous Membranes Moist - Neck Exam Neck Exam: Full ROM. absent: Lymphadenopathy, Meningismus, Normal Inspection, Tenderness, Thyromegaly - Respiratory Exam Respiratory Exam: Decreased Breath Sounds. absent: Accessory Muscle Use, Chest Wall Tenderness, Clear to Ausculation Bilateral, Prolonged Expiratory Phase, Rales, Rhonchi, Wheezes, Respiratory Distress, Stridor, NORMAL BREATHING PATTERN - Cardiovascular Exam Cardiovascular Exam: REGULAR RHYTHM. absent: Bradycardia, Tachycardia, Clicks, Diastolic murmur, Gallop, Irregular Rhythm, JVD, RRR, Rubs, +S1, +S2, +S4, Murmur - GI/Abdominal Exam GI & Abdominal Exam: Soft, Normal Bowel Sounds. absent: Bruit, Distended, Firm , Guarding, Rigid, Tenderness, Diminished Bowel Sounds, Hernia, Hyperactive Bowel Sounds, Hypoactive Bowel Sounds, Organomegaly, Pulsatile Mass, Rebound, Mass - Neurological Exam Neurological Exam: Alert, Oriented x3 - Psychiatric Exam Psychiatric exam: Depressed - Skin Skin Exam: Warm Additional comments: erythema of sacral area. Assessment and Plan (1) Leukocytosis (leucocytosis) Assessment & Plan: Improving Status: Acute (2) Fever Status: Resolved (3) Hyponatremia Assessment & Plan: persistent , possibly due to fluid overload Status: Acute (4) Anemia Status: Acute (5) Type II diabetes mellitus Status: Chronic (6) Congestive heart failure with left ventricular systolic dysfunction Status: Acute (7) Pneumonia of both lower lobes Status: Acute (8) Acute kidney injury superimposed on chronic kidney disease Status: Resolved (9) Bilateral pleural effusion Status: Acute (10) Hypertension Status: Chronic (11) Nontraumatic retroperitoneal hematoma Status: Suspected - Assessment and Plan (Free Text) Plan: We will continue present antibiotic coverage , follow up final cultures. We will monitor WBC, temperature . Stable from cardiac point , will maintain amiodarone, furosemide, metoprolol. OOB, PT evaluation. Renal status remains stable , follow up nephrology recommendation re : hyponatremia
[2016-08-30] MEDS: Meropenem 1g/NS 100mL IVPB 1 GM/100 ML PIGGYBACK IVPB SCH ×3 (05:49→21:20)
[2016-08-30] MEDS: Levothyroxine 25 MCG TAB PO SCH (05:50)
[2016-08-30] MEDS: Pantoprazole 40 mg EC Tab PO SCH (05:50)
[2016-08-30 07:24] LABS: HEMOGLOBIN 10.2 gm/dL (14.0-18.0); MEAN CELL VOLUME 90.1 fL (80.0-105.0); MEAN CORPUSCULAR HEMOGLOBIN 28.8 pg (25.0-35.0); MEAN PLATELET VOLUME 9.4 fl (7.0-11.0); RBC 3.54 10^6/uL (3.5-6.1); RED CELL DISTRIBUTION WIDTH 17.4 % (11.5-14.5); WHITE BLOOD COUNT 17.5 10^3/ul (4.5-11.0)
[2016-08-30 07:48] LABS: ALB/GLOB RATIO 0.6 (1.1-1.8); ALBUMIN 2.4 g/dL (3.0-4.8); CALCIUM 8.5 mg/dL (8.4-10.5)
--- NOTE | 2016-08-30 08:32 | CP.PCM.PN ---
Subjective - Date & Time of Evaluation Date of Evaluation: 08/30/16 Time of Evaluation: 07:00 - Subjective Subjective: Stable on 2R. No chest pain, SOB. Less depressed. S/P Tolvaptin dose yesterday. V/S noted. RSR PE: Lungs: decreased BS at bases Cor.: S1S2 Abd.: soft Ext.: no edema Neuro: alert Labs noted: WBC=17,500, Na+= 132, Cr.= 1.6, K+= 4.2 ECG 08/26: RSR, PRWP, STTW changes c/w ischemia BC x2 NG at 3 days 08/27 CT A+P noted, Objective - Vital Signs/Intake and Output Vital Signs (last 24 hours): Temp Pulse Resp BP Pulse Ox 98.3 F 84 20 145/83 94 L 08/30/16 06:00 08/30/16 08:15 08/30/16 06:00 08/30/16 06:00 08/30/16 06:00 Intake and Output: 08/30/16 08/30/16 06:59 18:59 Intake Total 600 Output Total 1550 Balance -950 - Medications Medications: Current Medications Amiodarone HCl (Cordarone) 200 mg PO DAILY [facility] Last Admin: 08/29/16 09:08 Dose: 200 mg Docusate Sodium (Colace) 100 mg PO BID [facility] Last Admin: 08/29/16 18:01 Dose: 100 mg Doxycycline Hyclate (Doryx) 100 mg PO Q12 [facility] PRN Reason: Protocol Stop: 09/06/16 22:01 Last Admin: 08/29/16 21:20 Dose: 100 mg Furosemide (Lasix) 40 mg IVP DAILY [facility] Meropenem 1g/NS 100mL IVPB (Meropenem 1g/Ns 100ml Ivpb) 1 gm in 100 mls @ 100 mls/hr IVPB Q8 [facility] PRN Reason: Protocol Stop: 09/06/16 14:01 Last Admin: 08/30/16 05:49 Dose: 100 mls/hr Insulin Detemir (Levemir) 9 unit SC HS [facility] Last Admin: 08/29/16 21:18 Dose: 9 unit Insulin Detemir (Levemir) 8 unit SC QAM [facility] Last Admin: 08/29/16 09:02 Dose: 8 unit Insulin Human Lispro (Humalog) 14 units SC AC [facility] Last Admin: 08/29/16 18:03 Dose: 14 units Insulin Human Lispro (Humalog Low) 0 units SC ACHS [facility] PRN Reason: Protocol Last Admin: 08/29/16 21:43 Dose: Not Given Levothyroxine Sodium (Synthroid) 25 mcg PO 0600 [facility] Last Admin: 08/30/16 05:50 Dose: 25 mcg Metoprolol Tartrate (Lopressor) 25 mg PO BID [facility] Last Admin: 08/29/16 17:54 Dose: Not Given Pantoprazole Sodium (Protonix Ec Tab) 40 mg PO 0600 [facility] Last Admin: 08/30/16 05:50 Dose: 40 mg Potassium Chloride (K-Dur 20 Meq Er Tab) 20 meq PO BRK [facility] Last Admin: 08/29/16 09:00 Dose: 20 meq Risperidone (Risperdal Tab) 0.25 mg PO HS [facility] PRN Reason: Protocol Last Admin: 08/29/16 21:19 Dose: 0.25 mg Sertraline HCl (Zoloft) 50 mg PO DAILY [facility] Last Admin: 08/29/16 09:01 Dose: 50 mg Tamsulosin HCl (Flomax) 0.4 mg PO QPM [facility] Last Admin: 08/29/16 18:01 Dose: 0.4 mg - Labs Labs: 08/30/16 06:20 08/30/16 06:20 PT 12.7 Seconds (9.9-11.8) H 08/25/16 14:30 INR 1.18 (0.93-1.08) H 08/25/16 14:30 APTT 29.3 Seconds (23.7-30.8) 08/25/16 14:30 Assessment and Plan - Assessment and Plan (Free Text) Assessment: Fever/Lethergy/R/O infection Hyponatremia Depression S/P AVR/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 Lacy FITZPATRICK to chair as millicent/PT Rx for depression, possible psych eval. Monitor labs, I/O, sats., cultures, etc. Will follow.
[2016-08-30] MEDS: Insulin Lispro (humaLOG) LOW Coverage SC SCH ×4 (08:37→21:47)
[2016-08-30] MEDS: Insulin Lispro 1 UNITS/0.01 ML SC SCH ×3 (08:37→18:14)
[2016-08-30] MEDS: Potassium Chloride 20 mEq ER Tab PO SCH (08:38)
[2016-08-30] MEDS: Insulin Detemir 100 units/ml Vial (Levemir) SC SCH ×2 (09:38→21:55)
--- NOTE | 2016-08-30 09:41 | CP.PCM.PN ---
Subjective - Date & Time of Evaluation Date of Evaluation: 08/30/16 Time of Evaluation: 08:15 - Subjective Subjective: No complaints PE: elderly male lying in bed Vital Signs: Reviewed HEENT: NC, AT, JENNIFER Neck: supple, no JVD, no bruit Lungs: B/L equal air entry, ronchi CVS: S1 S2 RRR, no murmur Abd: soft, non-distended, non-tender, bowel sounds present EXT: No edema Labs: reviewed Assessment and Plan: 1. 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 KOBE superimposed on CKD3 3. Leukocytosis, HCA infection suspected 4. NIDDM 5. Hypertension 6. CAD, recent CABG/AVR 7. Anemia 1. Continue lasix 2. Keep O>I 3. Replace K 4. Check MG 5. Dose all antibiotics for CrCl ~ 30ml/min 6. Monitor finger sticks and continue insulin coverage 7. s /p Tolvaptan 15mg x 1dose Objective - Vital Signs/Intake and Output Vital Signs (last 24 hours): Temp Pulse Resp BP Pulse Ox 98.3 F 84 20 145/83 94 L 08/30/16 06:00 08/30/16 08:15 08/30/16 06:00 08/30/16 06:00 08/30/16 06:00 Intake and Output: 08/30/16 08/30/16 06:59 18:59 Intake Total 600 Output Total 1550 Balance -950 - Medications Medications: Current Medications Amiodarone HCl (Cordarone) 200 mg PO DAILY [facility] Last Admin: 08/29/16 09:08 Dose: 200 mg Docusate Sodium (Colace) 100 mg PO BID [facility] Last Admin: 08/29/16 18:01 Dose: 100 mg Doxycycline Hyclate (Doryx) 100 mg PO Q12 [facility] PRN Reason: Protocol Stop: 09/06/16 22:01 Last Admin: 08/29/16 21:20 Dose: 100 mg Furosemide (Lasix) 40 mg IVP DAILY [facility] Meropenem 1g/NS 100mL IVPB (Meropenem 1g/Ns 100ml Ivpb) 1 gm in 100 mls @ 100 mls/hr IVPB Q8 [facility] PRN Reason: Protocol Stop: 09/06/16 14:01 Last Admin: 08/30/16 05:49 Dose: 100 mls/hr Insulin Detemir (Levemir) 9 unit SC HS [facility] Last Admin: 08/29/16 21:18 Dose: 9 unit Insulin Detemir (Levemir) 8 unit SC QAM [facility] Last Admin: 08/29/16 09:02 Dose: 8 unit Insulin Human Lispro (Humalog) 14 units SC AC [facility] Last Admin: 08/30/16 08:37 Dose: 14 units Insulin Human Lispro (Humalog Low) 0 units SC ACHS [facility] PRN Reason: Protocol Last Admin: 08/30/16 08:37 Dose: 5 units Levothyroxine Sodium (Synthroid) 25 mcg PO 0600 [facility] Last Admin: 08/30/16 05:50 Dose: 25 mcg Metoprolol Tartrate (Lopressor) 25 mg PO BID [facility] Last Admin: 08/29/16 17:54 Dose: Not Given Pantoprazole Sodium (Protonix Ec Tab) 40 mg PO 0600 [facility] Last Admin: 08/30/16 05:50 Dose: 40 mg Potassium Chloride (K-Dur 20 Meq Er Tab) 20 meq PO BRK [facility] Last Admin: 08/30/16 08:38 Dose: 20 meq Risperidone (Risperdal Tab) 0.25 mg PO HS [facility] PRN Reason: Protocol Last Admin: 08/29/16 21:19 Dose: 0.25 mg Sertraline HCl (Zoloft) 50 mg PO DAILY [facility] Last Admin: 08/29/16 09:01 Dose: 50 mg Tamsulosin HCl (Flomax) 0.4 mg PO QPM [facility] Last Admin: 08/29/16 18:01 Dose: 0.4 mg - Labs Labs: 08/30/16 06:20 08/30/16 06:20 PT 12.7 Seconds (9.9-11.8) H 08/25/16 14:30 INR 1.18 (0.93-1.08) H 08/25/16 14:30 APTT 29.3 Seconds (23.7-30.8) 08/25/16 14:30
--- NOTE | 2016-08-30 10:24 | CP.PCM.PN ---
Subjective - Date & Time of Evaluation Date of Evaluation: 08/30/16 Time of Evaluation: 09:10 - Subjective Subjective: Patient is comfortable in bed, not in distress, no fevers overnight, breathing better, no abdominal pain. Objective - Vital Signs/Intake and Output Vital Signs (last 24 hours): Temp Pulse Resp BP Pulse Ox 98.3 F 84 20 145/83 94 L 08/30/16 06:00 08/30/16 06:00 08/30/16 06:00 08/30/16 06:00 08/30/16 06:00 Intake and Output: 08/30/16 08/30/16 06:59 18:59 Intake Total 600 Output Total 1550 Balance -950 - Medications Medications: Current Medications Amiodarone HCl (Cordarone) 200 mg PO DAILY [facility] Last Admin: 08/29/16 09:08 Dose: 200 mg Docusate Sodium (Colace) 100 mg PO BID [facility] Last Admin: 08/29/16 18:01 Dose: 100 mg Doxycycline Hyclate (Doryx) 100 mg PO Q12 [facility] PRN Reason: Protocol Stop: 09/06/16 22:01 Last Admin: 08/29/16 21:20 Dose: 100 mg Furosemide (Lasix) 40 mg IVP DAILY [facility] Meropenem 1g/NS 100mL IVPB (Meropenem 1g/Ns 100ml Ivpb) 1 gm in 100 mls @ 100 mls/hr IVPB Q8 [facility] PRN Reason: Protocol Stop: 09/06/16 14:01 Last Admin: 08/30/16 05:49 Dose: 100 mls/hr Insulin Detemir (Levemir) 9 unit SC HS [facility] [place] Last Admin: 08/29/16 21:18 Dose: 9 unit Insulin Detemir (Levemir) 8 unit SC QAM [facility] Last Admin: 08/29/16 09:02 Dose: 8 unit Insulin Human Lispro (Humalog) 14 units SC AC [facility] [place] Last Admin: 08/29/16 18:03 Dose: 14 units Insulin Human Lispro (Humalog Low) 0 units SC ACHS [facility] [place] PRN Reason: Protocol Last Admin: 08/29/16 21:43 Dose: Not Given Levothyroxine Sodium (Synthroid) 25 mcg PO 0600 [facility] [place] Last Admin: 08/30/16 05:50 Dose: 25 mcg Metoprolol Tartrate (Lopressor) 25 mg PO BID [facility] [place] Last Admin: 08/29/16 17:54 Dose: Not Given Pantoprazole Sodium (Protonix Ec Tab) 40 mg PO 0600 [facility] [place] Last Admin: 08/30/16 05:50 Dose: 40 mg Potassium Chloride (K-Dur 20 Meq Er Tab) 20 meq PO BRK [facility] [place] Last Admin: 08/29/16 09:00 Dose: 20 meq Risperidone (Risperdal Tab) 0.25 mg PO HS [facility] PRN Reason: Protocol Last Admin: 08/29/16 21:19 Dose: 0.25 mg Sertraline HCl (Zoloft) 50 mg PO DAILY [facility] [place] Last Admin: 08/29/16 09:01 Dose: 50 mg Tamsulosin HCl (Flomax) 0.4 mg PO QPM [facility] [place] Last Admin: 08/29/16 18:01 Dose: 0.4 mg - Labs Labs: 08/30/16 06:20 08/30/16 06:20 PT 12.7 Seconds (9.9-11.8) H 08/25/16 14:30 INR 1.18 (0.93-1.08) H 08/25/16 14:30 APTT 29.3 Seconds (23.7-30.8) 08/25/16 14:30 - Constitutional Appears: Non-toxic, No Acute Distress - Head Exam Head Exam: NORMAL INSPECTION - ENT Exam ENT Exam: Mucous Membranes Moist - Neck Exam Neck Exam: absent: Meningismus - Respiratory Exam Respiratory Exam: Decreased Breath Sounds - Cardiovascular Exam Cardiovascular Exam: +S1, +S2 - GI/Abdominal Exam GI & Abdominal Exam: Soft. absent: Tenderness Assessment and Plan - Assessment and Plan (Free Text) Plan: Assessment Consider sepsis due to bilateral hospital-acquired pneumonia, slowly improving chronic right sided retroperitoneal hematoma CAD S/P CABG and aortic valve replacement (history of aortic stenosis) history of atrial fibrillation chronic renal failure DM BPH hypothyroidism Plan Continue Doxycycline and Merrem (day 3), to complete 4-7 days of therapy; cultures have been negative As discussed with Dr. House, WBC count is still elevated - will check 2D echo and continue to monitor the patient and trend WBC count; if still persistent will considering repeating cultures
--- NOTE | 2016-08-30 20:06 | CP.PCM.PN ---
Subjective - Date & Time of Evaluation Date of Evaluation: 08/30/16 Time of Evaluation: 09:00 - Subjective Subjective: The patient feels better. He denies new medical problems today. He is more alert. Appetite is good. He tolerated walking with walker yesterday. He is on IV Merem and oral doxycycline, all cultures are negative. Objective - Vital Signs/Intake and Output Vital Signs (last 24 hours): Temp Pulse Resp BP Pulse Ox 98.9 F 78 20 111/64 94 L 08/30/16 18:00 08/30/16 18:00 08/30/16 18:00 08/30/16 18:00 08/30/16 06:00 - Medications Medications: Current Medications Amiodarone HCl (Cordarone) 200 mg PO DAILY [facility] Last Admin: 08/30/16 09:37 Dose: 200 mg Docusate Sodium (Colace) 100 mg PO BID [facility] Last Admin: 08/30/16 18:14 Dose: 100 mg Doxycycline Hyclate (Doryx) 100 mg PO Q12 [facility] PRN Reason: Protocol Stop: 09/06/16 22:01 Last Admin: 08/30/16 09:37 Dose: 100 mg Furosemide (Lasix) 40 mg IVP DAILY [facility] Last Admin: 08/30/16 09:37 Dose: 40 mg Meropenem 1g/NS 100mL IVPB (Meropenem 1g/Ns 100ml Ivpb) 1 gm in 100 mls @ 100 mls/hr IVPB Q8 [facility] PRN Reason: Protocol Stop: 09/06/16 14:01 Last Admin: 08/30/16 13:35 Dose: 100 mls/hr Insulin Detemir (Levemir) 9 unit SC HS [facility] Last Admin: 08/29/16 21:18 Dose: 9 unit Insulin Detemir (Levemir) 8 unit SC QAM [facility] Last Admin: 08/30/16 09:38 Dose: 8 unit Insulin Human Lispro (Humalog) 14 units SC AC [facility] Last Admin: 08/30/16 18:14 Dose: 14 units Insulin Human Lispro (Humalog Low) 0 units SC ACHS [facility] PRN Reason: Protocol Last Admin: 08/30/16 18:32 Dose: Not Given Levothyroxine Sodium (Synthroid) 25 mcg PO 0600 [facility] Last Admin: 08/30/16 05:50 Dose: 25 mcg Metoprolol Tartrate (Lopressor) 25 mg PO BID [facility] Last Admin: 08/30/16 18:14 Dose: 25 mg Pantoprazole Sodium (Protonix Ec Tab) 40 mg PO 0600 [facility] Last Admin: 08/30/16 05:50 Dose: 40 mg Potassium Chloride (K-Dur 20 Meq Er Tab) 20 meq PO BRK [facility] Last Admin: 08/30/16 08:38 Dose: 20 meq Risperidone (Risperdal Tab) 0.25 mg PO HS [facility] PRN Reason: Protocol Last Admin: 08/29/16 21:19 Dose: 0.25 mg Sertraline HCl (Zoloft) 50 mg PO DAILY [facility] Last Admin: 08/30/16 09:37 Dose: 50 mg Tamsulosin HCl (Flomax) 0.4 mg PO QPM [facility] Last Admin: 08/30/16 18:14 Dose: 0.4 mg - Labs Labs: 08/30/16 06:20 08/30/16 06:20 PT 12.7 Seconds (9.9-11.8) H 08/25/16 14:30 INR 1.18 (0.93-1.08) H 08/25/16 14:30 APTT 29.3 Seconds (23.7-30.8) 08/25/16 14:30 - Constitutional Appears: No Acute Distress - Head Exam Head Exam: ATRAUMATIC, NORMOCEPHALIC - Eye Exam Pupil Exam: NORMAL ACCOMODATION, PERRL - ENT Exam ENT Exam: Mucous Membranes Moist - Neck Exam Neck Exam: Full ROM. absent: Lymphadenopathy, Meningismus, Normal Inspection, Tenderness, Thyromegaly - Respiratory Exam Respiratory Exam: Decreased Breath Sounds. absent: Accessory Muscle Use, Chest Wall Tenderness, Clear to Ausculation Bilateral, Prolonged Expiratory Phase, Rales, Rhonchi, Wheezes, Respiratory Distress, Stridor, NORMAL BREATHING PATTERN - Cardiovascular Exam Cardiovascular Exam: REGULAR RHYTHM. absent: Bradycardia, Tachycardia, Clicks, Diastolic murmur, Gallop, Irregular Rhythm, JVD, RRR, Rubs, +S1, +S2, +S4, Murmur - GI/Abdominal Exam GI & Abdominal Exam: Soft, Normal Bowel Sounds - Extremities Exam Extremities Exam: Full ROM. absent: Calf Tenderness, Joint Swelling, Normal Capillary Refill, Normal Inspection, Pedal Edema, Tenderness - Neurological Exam Neurological Exam: Alert, Oriented x3 - Psychiatric Exam Psychiatric exam: Depressed Assessment and Plan (1) Leukocytosis (leucocytosis) Assessment & Plan: Uncertain etiology, infectious vs inflammatory? Status: Acute (2) Fever Status: Resolved (3) Hyponatremia Status: Resolved (4) Anemia Assessment & Plan: Stable with no signs of active bleeding Status: Chronic (5) Type II diabetes mellitus Status: Chronic (6) Congestive heart failure with left ventricular systolic dysfunction Status: Acute (7) Pneumonia of both lower lobes Status: Acute (8) Acute kidney injury superimposed on chronic kidney disease Assessment & Plan: slighlty worsened , probably due to diuretic Status: Resolved (9) Bilateral pleural effusion Status: Acute (10) Hypertension Status: Chronic (11) Nontraumatic retroperitoneal hematoma Status: Suspected - Assessment and Plan (Free Text) Assessment: Patient will be maintained on present IV antibiotics, Echocardiogram for vegetation to rule out endocarditis. Discussed with ID, follow up final cultures. PT to continue , will discuss with daughter TCU vs [facility].
[2016-08-31] MEDS: Pantoprazole 40 mg EC Tab PO SCH (05:36)
[2016-08-31] MEDS: Levothyroxine 25 MCG TAB PO SCH (05:37)
[2016-08-31 07:15] LABS: BASO # 0.04 K/mm3 (0.0-2.0); BASO % 0.2 % (0.0-3.0); EOS # 0.1 (0.0-0.7); EOS % 0.3 % (1.5-5.0); GRAN # 13.57 (1.4-6.5); GRAN % 78.3 % (50.0-68.0); HEMOGLOBIN 9.8 gm/dL (14.0-18.0); LYMPH # 2.4 (1.2-3.4); LYMPH % 13.6 % (22.0-35.0); MEAN CELL VOLUME 91.4 fL (80.0-105.0); MEAN CORPUSCULAR HEMOGLOBIN 28.9 pg (25.0-35.0); MEAN CORPUSCULAR HGB CONC 31.6 g/dl (31.0-37.0); MEAN PLATELET VOLUME 9.5 fl (7.0-11.0); MONO # 1.3 (0.1-0.6); MONO % 7.6 % (1.0-6.0); PLATELET COUNT 290 10^3/uL (120.0-450.0); RBC 3.39 10^6/uL (3.5-6.1); RED CELL DISTRIBUTION WIDTH 17.6 % (11.5-14.5); WHITE BLOOD COUNT 17.3 10^3/ul (4.5-11.0)
[2016-08-31 07:26] LABS: CALCIUM 8.4 mg/dL (8.4-10.5)
[2016-08-31] MEDS: Meropenem 1g/NS 100mL IVPB 1 GM/100 ML PIGGYBACK IVPB SCH ×3 (07:47→21:45)
[2016-08-31] MEDS: Potassium Chloride 20 mEq ER Tab PO SCH (08:23)
[2016-08-31] MEDS: Insulin Lispro 1 UNITS/0.01 ML SC SCH ×3 (08:24→17:51)
[2016-08-31] MEDS: Insulin Lispro (humaLOG) LOW Coverage SC SCH ×4 (08:25→21:45)
--- NOTE | 2016-08-31 08:28 | CP.PCM.PN ---
Subjective - Date & Time of Evaluation Date of Evaluation: 08/31/16 Time of Evaluation: 07:00 - Subjective Subjective: Stable on 2R. No chest pain, SOB. Less depressed. + ambulation yesterday V/S noted. RSR. No fever. PE: Lungs: decreased BS at bases Cor.: S1S2 Abd.: soft Ext.: no edema Neuro: alert I/O= 2120/1800 Labs noted: WBC=17,300, Na+= 130, Cr.= 1.6, K+= 4.0, H/H = 9.8/31 ECG 08/26: RSR, PRWP, STTW changes c/w ischemia BC x2 NG at 4 days 08/27 CT A+P noted, Objective - Vital Signs/Intake and Output Vital Signs (last 24 hours): Temp Pulse Resp BP Pulse Ox 98.5 F 77 18 137/80 97 08/31/16 06:00 08/31/16 06:00 08/31/16 06:00 08/31/16 06:00 08/31/16 06:00 Intake and Output: 08/31/16 08/31/16 06:59 18:59 Intake Total 2120 Output Total 1800 Balance 320 - Medications Medications: Current Medications Amiodarone HCl (Cordarone) 200 mg PO DAILY [facility] Last Admin: 08/30/16 09:37 Dose: 200 mg Docusate Sodium (Colace) 100 mg PO BID [facility] Last Admin: 08/30/16 18:14 Dose: 100 mg Doxycycline Hyclate (Doryx) 100 mg PO Q12 [facility] PRN Reason: Protocol Stop: 09/06/16 22:01 Last Admin: 08/30/16 21:21 Dose: 100 mg Furosemide (Lasix) 40 mg IVP DAILY [facility] Last Admin: 08/30/16 09:37 Dose: 40 mg Meropenem 1g/NS 100mL IVPB (Meropenem 1g/Ns 100ml Ivpb) 1 gm in 100 mls @ 100 mls/hr IVPB Q8 [facility] PRN Reason: Protocol Stop: 09/06/16 14:01 Last Admin: 08/31/16 07:47 Dose: 100 mls/hr Insulin Detemir (Levemir) 9 unit SC HS [facility] Last Admin: 08/30/16 21:55 Dose: 9 unit Insulin Detemir (Levemir) 8 unit SC QAM [facility] Last Admin: 08/30/16 09:38 Dose: 8 unit Insulin Human Lispro (Humalog) 14 units SC AC [facility] Last Admin: 08/30/16 18:14 Dose: 14 units Insulin Human Lispro (Humalog Low) 0 units SC ACHS [facility] PRN Reason: Protocol Last Admin: 08/30/16 21:47 Dose: 2 units Levothyroxine Sodium (Synthroid) 25 mcg PO 0600 [facility] Last Admin: 08/31/16 05:37 Dose: 25 mcg Metoprolol Tartrate (Lopressor) 25 mg PO BID [facility] Last Admin: 08/30/16 18:14 Dose: 25 mg Pantoprazole Sodium (Protonix Ec Tab) 40 mg PO 0600 [facility] Last Admin: 08/31/16 05:36 Dose: 40 mg Potassium Chloride (K-Dur 20 Meq Er Tab) 20 meq PO BRK [facility] Last Admin: 08/30/16 08:38 Dose: 20 meq Risperidone (Risperdal Tab) 0.25 mg PO HS [facility] PRN Reason: Protocol Last Admin: 08/30/16 21:21 Dose: 0.25 mg Sertraline HCl (Zoloft) 50 mg PO DAILY [facility] Last Admin: 08/30/16 09:37 Dose: 50 mg Tamsulosin HCl (Flomax) 0.4 mg PO QPM [facility] Last Admin: 08/30/16 18:14 Dose: 0.4 mg - Labs Labs: 08/31/16 05:30 08/31/16 05:46 PT 12.7 Seconds (9.9-11.8) H 08/25/16 14:30 INR 1.18 (0.93-1.08) H 08/25/16 14:30 APTT 29.3 Seconds (23.7-30.8) 08/25/16 14:30 Assessment and Plan - Assessment and Plan (Free Text) Assessment: Fever/Lethergy/R/O infection Hyponatremia Depression S/P AVR/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 Lacy FITZPATRICK to chair as millicent/PT Rx for depression, possible psych eval. Monitor labs, I/O, sats., cultures, etc. Echo ordered. Will check when done. Elevated WBC possibly related to resolving retroperitoneal bleed. Will follow.
[2016-08-31] MEDS: Insulin Detemir 100 units/ml Vial (Levemir) SC SCH ×2 (09:54→21:43)
--- NOTE | 2016-08-31 10:24 | CP.PCM.PN ---
Subjective - Date & Time of Evaluation Date of Evaluation: 08/31/16 Time of Evaluation: 09:30 - Subjective Subjective: Comfortable in bed, not in distress, afebrile, breathing well, no diarrhea. Objective - Vital Signs/Intake and Output Vital Signs (last 24 hours): Temp Pulse Resp BP Pulse Ox 98.7 F 70 18 127/74 94 L 08/31/16 00:01 08/31/16 02:00 08/31/16 00:01 08/31/16 00:01 08/30/16 06:00 - Medications Medications: Current Medications Amiodarone HCl (Cordarone) 200 mg PO DAILY [facility] Last Admin: 08/30/16 09:37 Dose: 200 mg Docusate Sodium (Colace) 100 mg PO BID [facility] Last Admin: 08/30/16 18:14 Dose: 100 mg Doxycycline Hyclate (Doryx) 100 mg PO Q12 [facility] PRN Reason: Protocol Stop: 09/06/16 22:01 Last Admin: 08/30/16 21:21 Dose: 100 mg Furosemide (Lasix) 40 mg IVP DAILY [facility] Last Admin: 08/30/16 09:37 Dose: 40 mg Meropenem 1g/NS 100mL IVPB (Meropenem 1g/Ns 100ml Ivpb) 1 gm in 100 mls @ 100 mls/hr IVPB Q8 [facility] PRN Reason: Protocol Stop: 09/06/16 14:01 Last Admin: 08/30/16 21:20 Dose: 100 mls/hr Insulin Detemir (Levemir) 9 unit SC HS [facility] Last Admin: 08/30/16 21:55 Dose: 9 unit Insulin Detemir (Levemir) 8 unit SC QAM [facility] Last Admin: 08/30/16 09:38 Dose: 8 unit Insulin Human Lispro (Humalog) 14 units SC AC [facility] Last Admin: 08/30/16 18:14 Dose: 14 units Insulin Human Lispro (Humalog Low) 0 units SC ACHS [facility] PRN Reason: Protocol Last Admin: 08/30/16 21:47 Dose: 2 units Levothyroxine Sodium (Synthroid) 25 mcg PO 0600 [facility] Last Admin: 08/31/16 05:37 Dose: 25 mcg Metoprolol Tartrate (Lopressor) 25 mg PO BID [facility] Last Admin: 08/30/16 18:14 Dose: 25 mg Pantoprazole Sodium (Protonix Ec Tab) 40 mg PO 0600 [facility] Last Admin: 08/31/16 05:36 Dose: 40 mg Potassium Chloride (K-Dur 20 Meq Er Tab) 20 meq PO BRK [facility] Last Admin: 08/30/16 08:38 Dose: 20 meq Risperidone (Risperdal Tab) 0.25 mg PO HS [facility] PRN Reason: Protocol Last Admin: 08/30/16 21:21 Dose: 0.25 mg Sertraline HCl (Zoloft) 50 mg PO DAILY [facility] Last Admin: 08/30/16 09:37 Dose: 50 mg Tamsulosin HCl (Flomax) 0.4 mg PO QPM [facility] Last Admin: 08/30/16 18:14 Dose: 0.4 mg - Labs Labs: 08/30/16 06:20 08/30/16 06:20 PT 12.7 Seconds (9.9-11.8) H 08/25/16 14:30 INR 1.18 (0.93-1.08) H 08/25/16 14:30 APTT 29.3 Seconds (23.7-30.8) 08/25/16 14:30 - Constitutional Appears: Non-toxic, No Acute Distress - Head Exam Head Exam: NORMAL INSPECTION - Neck Exam Neck Exam: absent: Meningismus - Respiratory Exam Respiratory Exam: Decreased Breath Sounds - Cardiovascular Exam Cardiovascular Exam: +S1, +S2 - GI/Abdominal Exam GI & Abdominal Exam: Soft. absent: Tenderness Assessment and Plan - Assessment and Plan (Free Text) Plan: Assessment Consider sepsis due to bilateral hospital-acquired pneumonia, clinically improving chronic right sided retroperitoneal hematoma CAD S/P CABG and aortic valve replacement (history of aortic stenosis) history of atrial fibrillation chronic renal failure DM BPH hypothyroidism Plan Continue Doxycycline and Merrem (day 4), to complete 4-7 days of therapy - as discussed with Dr. House, would prefer 7 days of therapy; cultures have been negative follow up 2D echo and continue to monitor the patient and trend WBC count; if still persistent will considering repeating cultures
--- NOTE | 2016-08-31 15:04 | CP.PCM.PN ---
Subjective - Date & Time of Evaluation Date of Evaluation: 08/31/16 Time of Evaluation: 08:15 - Subjective Subjective: No complaints PE: elderly male lying in bed Vital Signs: Reviewed HEENT: NC, AT, JENNIFER Neck: supple, no JVD, no bruit Lungs: B/L equal air entry, ronchi CVS: S1 S2 RRR, no murmur Abd: soft, non-distended, non-tender, bowel sounds present EXT: No edema Labs: reviewed Assessment and Plan: 1. 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 KOBE superimposed on CKD3 3. Leukocytosis, HCA infection suspected 4. NIDDM 5. Hypertension 6. CAD, recent CABG/AVR 7. Anemia 1. Continue lasix 2. Keep O>I 3. Replace K 4. Check MG 5. Dose all antibiotics for CrCl ~ 30ml/min 6. Monitor finger sticks and continue insulin coverage 7. s /p Tolvaptan 15mg x 1dose Objective - Vital Signs/Intake and Output Vital Signs (last 24 hours): Temp Pulse Resp BP Pulse Ox 97 F L 75 20 122/72 97 08/31/16 11:44 08/31/16 14:00 08/31/16 11:44 08/31/16 11:44 08/31/16 06:00 Intake and Output: 08/31/16 08/31/16 06:59 18:59 Intake Total 2120 Output Total 1800 Balance 320 - Medications Medications: Current Medications Amiodarone HCl (Cordarone) 200 mg PO DAILY [facility] Last Admin: 08/31/16 09:53 Dose: 200 mg Docusate Sodium (Colace) 100 mg PO BID [facility] Last Admin: 08/31/16 09:53 Dose: 100 mg Doxycycline Hyclate (Doryx) 100 mg PO Q12 [facility] PRN Reason: Protocol Stop: 09/06/16 22:01 Last Admin: 08/31/16 09:53 Dose: 100 mg Furosemide (Lasix) 40 mg IVP DAILY [facility] Last Admin: 08/31/16 09:53 Dose: 40 mg Meropenem 1g/NS 100mL IVPB (Meropenem 1g/Ns 100ml Ivpb) 1 gm in 100 mls @ 100 mls/hr IVPB Q8 [facility] PRN Reason: Protocol Stop: 09/06/16 14:01 Last Admin: 08/31/16 14:59 Dose: 100 mls/hr Insulin Detemir (Levemir) 10 unit SC HS [facility] Insulin Detemir (Levemir) 9 unit SC QAM [facility] Last Admin: 08/31/16 09:54 Dose: 9 unit Insulin Human Lispro (Humalog) 14 units SC AC [facility] Last Admin: 08/31/16 12:24 Dose: 14 units Insulin Human Lispro (Humalog Low) 0 units SC ACHS [facility] PRN Reason: Protocol Last Admin: 08/31/16 12:25 Dose: 1 units Levothyroxine Sodium (Synthroid) 25 mcg PO 0600 [facility] Last Admin: 08/31/16 05:37 Dose: 25 mcg Metoprolol Tartrate (Lopressor) 25 mg PO BID [facility] Last Admin: 08/31/16 09:53 Dose: 25 mg Pantoprazole Sodium (Protonix Ec Tab) 40 mg PO 0600 [facility] Last Admin: 08/31/16 05:36 Dose: 40 mg Potassium Chloride (K-Dur 20 Meq Er Tab) 20 meq PO BRK [facility] Last Admin: 08/31/16 08:23 Dose: 20 meq Risperidone (Risperdal Tab) 0.25 mg PO HS [facility] PRN Reason: Protocol Last Admin: 08/30/16 21:21 Dose: 0.25 mg Sertraline HCl (Zoloft) 50 mg PO DAILY [facility] Last Admin: 08/31/16 09:53 Dose: 50 mg Tamsulosin HCl (Flomax) 0.4 mg PO QPM [facility] Last Admin: 08/30/16 18:14 Dose: 0.4 mg - Labs Labs: 08/31/16 05:30 08/31/16 05:46 PT 12.7 Seconds (9.9-11.8) H 08/25/16 14:30 INR 1.18 (0.93-1.08) H 08/25/16 14:30 APTT 29.3 Seconds (23.7-30.8) 08/25/16 14:30
--- NOTE | 2016-08-31 18:30 | CP.PCM.PN ---
Subjective - Date & Time of Evaluation Date of Evaluation: 08/31/16 Time of Evaluation: 09:00 - Subjective Subjective: The patient is feeling better, wants to go home. He is still fatigued but able to walk with assistance. The patient and family are not committed to TCU . Blood and urine culture is negative.There is however unexplained, persistent leukocytosis . Objective - Vital Signs/Intake and Output Vital Signs (last 24 hours): Temp Pulse Resp BP Pulse Ox 98.8 F 75 19 103/59 L 97 08/31/16 17:57 08/31/16 17:57 08/31/16 17:57 08/31/16 17:57 08/31/16 06:00 Intake and Output: 08/31/16 08/31/16 06:59 18:59 Intake Total 2720 Output Total 2350 Balance 370 - Medications Medications: Current Medications Amiodarone HCl (Cordarone) 200 mg PO DAILY [facility] Last Admin: 08/31/16 09:53 Dose: 200 mg Docusate Sodium (Colace) 100 mg PO BID [facility] Last Admin: 08/31/16 17:51 Dose: 100 mg Doxycycline Hyclate (Doryx) 100 mg PO Q12 [facility] PRN Reason: Protocol Stop: 09/06/16 22:01 Last Admin: 08/31/16 09:53 Dose: 100 mg Furosemide (Lasix) 40 mg IVP DAILY [facility] Last Admin: 08/31/16 09:53 Dose: 40 mg Meropenem 1g/NS 100mL IVPB (Meropenem 1g/Ns 100ml Ivpb) 1 gm in 100 mls @ 100 mls/hr IVPB Q8 [facility] PRN Reason: Protocol Stop: 09/06/16 14:01 Last Admin: 08/31/16 14:59 Dose: 100 mls/hr Insulin Detemir (Levemir) 10 unit SC HS [facility] Insulin Detemir (Levemir) 9 unit SC QAM [facility] Last Admin: 08/31/16 09:54 Dose: 9 unit Insulin Human Lispro (Humalog) 14 units SC AC [facility] Last Admin: 08/31/16 17:51 Dose: 14 units Insulin Human Lispro (Humalog Low) 0 units SC ACHS [facility] PRN Reason: Protocol Last Admin: 08/31/16 17:47 Dose: Not Given Levothyroxine Sodium (Synthroid) 25 mcg PO 0600 [facility] Last Admin: 08/31/16 05:37 Dose: 25 mcg Metoprolol Tartrate (Lopressor) 25 mg PO BID [facility] Last Admin: 08/31/16 17:51 Dose: 25 mg Pantoprazole Sodium (Protonix Ec Tab) 40 mg PO 0600 [facility] Last Admin: 08/31/16 05:36 Dose: 40 mg Potassium Chloride (K-Dur 20 Meq Er Tab) 20 meq PO BRK [facility] Last Admin: 08/31/16 08:23 Dose: 20 meq Risperidone (Risperdal Tab) 0.25 mg PO HS [facility] PRN Reason: Protocol Last Admin: 08/30/16 21:21 Dose: 0.25 mg Sertraline HCl (Zoloft) 50 mg PO DAILY [facility] Last Admin: 08/31/16 09:53 Dose: 50 mg Tamsulosin HCl (Flomax) 0.4 mg PO QPM [facility] Last Admin: 08/31/16 17:51 Dose: 0.4 mg - Labs Labs: 08/31/16 05:30 08/31/16 05:46 PT 12.7 Seconds (9.9-11.8) H 08/25/16 14:30 INR 1.18 (0.93-1.08) H 08/25/16 14:30 APTT 29.3 Seconds (23.7-30.8) 08/25/16 14:30 - Constitutional Appears: No Acute Distress - Head Exam Head Exam: ATRAUMATIC, NORMOCEPHALIC - Eye Exam Pupil Exam: NORMAL ACCOMODATION, PERRL - ENT Exam ENT Exam: Mucous Membranes Moist - Neck Exam Neck Exam: Full ROM. absent: Lymphadenopathy, Meningismus, Normal Inspection, Tenderness, Thyromegaly - Respiratory Exam Respiratory Exam: Decreased Breath Sounds. absent: Accessory Muscle Use, Chest Wall Tenderness, Clear to Ausculation Bilateral, Prolonged Expiratory Phase, Rales, Rhonchi, Wheezes, Respiratory Distress, Stridor, NORMAL BREATHING PATTERN - Cardiovascular Exam Cardiovascular Exam: REGULAR RHYTHM. absent: Bradycardia, Tachycardia, Clicks, Diastolic murmur, Gallop, Irregular Rhythm, JVD, RRR, Rubs, +S1, +S2, +S4, Murmur - GI/Abdominal Exam GI & Abdominal Exam: Soft, Normal Bowel Sounds. absent: Bruit, Distended, Firm , Guarding, Rigid, Tenderness, Diminished Bowel Sounds, Hernia, Hyperactive Bowel Sounds, Hypoactive Bowel Sounds, Organomegaly, Pulsatile Mass, Rebound, Mass - Extremities Exam Extremities Exam: Full ROM - Neurological Exam Neurological Exam: Alert, Awake, Oriented x3 - Psychiatric Exam Psychiatric exam: Anxious, Flat Affect - Skin Additional comments: Erythema of sacral area with no skin breaking Assessment and Plan (1) Leukocytosis (leucocytosis) Assessment & Plan: Persistent , no clear etiology , must consider inflammatory Status: Acute (2) Fever Status: Resolved (3) Hyponatremia Assessment & Plan: Probably due to SIADH, Status: Acute (4) Anemia Assessment & Plan: stable Status: Chronic (5) Type II diabetes mellitus Status: Chronic (6) Congestive heart failure with left ventricular systolic dysfunction Assessment & Plan: improved Status: Chronic (7) Pneumonia of both lower lobes Status: Acute (8) Acute kidney injury superimposed on chronic kidney disease Assessment & Plan: Probably worsened due to diuretic Status: Acute (9) Bilateral pleural effusion Status: Acute (10) Hypertension Status: Chronic (11) Nontraumatic retroperitoneal hematoma Assessment & Plan: Stable Status: Chronic - Assessment and Plan (Free Text) Plan: We will continue antibiotics as per ID with 7 days time frame . Follow up of Echocardiogram. We will close monitor WBC . Continue PT . Discussed with patient and his daughter, prefers to go home when ready.
[2016-09-01] MEDS: Pantoprazole 40 mg EC Tab PO SCH (05:35)
[2016-09-01] MEDS: Levothyroxine 25 MCG TAB PO SCH (05:35)
[2016-09-01] MEDS: Meropenem 1g/NS 100mL IVPB 1 GM/100 ML PIGGYBACK IVPB SCH ×3 (05:36→22:16)
[2016-09-01 07:08] LABS: BASO # 0.04 K/mm3 (0.0-2.0); BASO % 0.2 % (0.0-3.0); EOS # 0.1 (0.0-0.7); EOS % 0.6 % (1.5-5.0); GRAN # 12.53 (1.4-6.5); GRAN % 77.4 % (50.0-68.0); HEMOGLOBIN 9.3 gm/dL (14.0-18.0); LYMPH % 12.5 % (22.0-35.0); MEAN CELL VOLUME 91.5 fL (80.0-105.0); MEAN CORPUSCULAR HEMOGLOBIN 29.2 pg (25.0-35.0); MEAN CORPUSCULAR HGB CONC 31.8 g/dl (31.0-37.0); MEAN PLATELET VOLUME 9.4 fl (7.0-11.0); MONO # 1.5 (0.1-0.6); MONO % 9.3 % (1.0-6.0); PLATELET COUNT 267 10^3/uL (120.0-450.0); RBC 3.19 10^6/uL (3.5-6.1); RED CELL DISTRIBUTION WIDTH 17.5 % (11.5-14.5); WHITE BLOOD COUNT 16.2 10^3/ul (4.5-11.0)
[2016-09-01 07:15] LABS: CALCIUM 8.1 mg/dL (8.4-10.5)
--- NOTE | 2016-09-01 07:55 | CP.PCM.PN ---
Subjective - Date & Time of Evaluation Date of Evaluation: 09/01/16 Time of Evaluation: 07:00 - Subjective Subjective: Stable on 2R. No chest pain, SOB. Less depressed. + ambulation yesterday V/S noted. RSR. No fever. PE: Lungs: decreased BS at bases Cor.: S1S2 Abd.: soft Ext.: no edema Neuro: alert I/O= 780/675 Labs noted: WBC=16,200, Na+= 131, Cr.= 1.5, K+= 4.0, H/H = 9.3/29.2, Mg.++= 2.0 ECG 08/26: RSR, PRWP, STTW changes c/w ischemia BC x2 NG at 5 days 08/27 CT A+P noted, Echo: No veg. seen. See report. Objective - Vital Signs/Intake and Output Vital Signs (last 24 hours): Temp Pulse Resp BP Pulse Ox 98.2 F 66 20 133/54 L 97 09/01/16 06:00 09/01/16 06:00 09/01/16 06:00 09/01/16 06:00 09/01/16 06:00 Intake and Output: 09/01/16 09/01/16 06:59 18:59 Intake Total 780 Output Total 675 Balance 105 - Medications Medications: Current Medications Amiodarone HCl (Cordarone) 200 mg PO DAILY ON [facility] OF [facility] Last Admin: 08/31/16 09:53 Dose: 200 mg Docusate Sodium (Colace) 100 mg PO BID ON [facility] OF [facility] Last Admin: 08/31/16 17:51 Dose: 100 mg Doxycycline Hyclate (Doryx) 100 mg PO Q12 ON [facility] OF [facility] PRN Reason: Protocol Stop: 09/06/16 22:01 Last Admin: 08/31/16 21:42 Dose: 100 mg Furosemide (Lasix) 40 mg IVP DAILY ON [facility] OF [facility] Last Admin: 08/31/16 09:53 Dose: 40 mg Meropenem 1g/NS 100mL IVPB (Meropenem 1g/Ns 100ml Ivpb) 1 gm in 100 mls @ 100 mls/hr IVPB Q8 ON LICENSE OF [facility] PRN Reason: Protocol Stop: 09/06/16 14:01 Last Admin: 09/01/16 05:36 Dose: 100 mls/hr Insulin Detemir (Levemir) 10 unit SC [facility] Last Admin: 08/31/16 21:43 Dose: 10 unit Insulin Detemir (Levemir) 9 unit SC QAM ON [facility] Last Admin: 08/31/16 09:54 Dose: 9 unit Insulin Human Lispro (Humalog) 14 units SC AC ON [facility] Last Admin: 08/31/16 17:51 Dose: 14 units Insulin Human Lispro (Humalog Low) 0 units SC ACHS ON [facility] OF [facility] PRN Reason: Protocol Last Admin: 08/31/16 21:45 Dose: Not Given Levothyroxine Sodium (Synthroid) 25 mcg PO 0600 ON [facility] OF [facility] Last Admin: 09/01/16 05:35 Dose: 25 mcg Metoprolol Tartrate (Lopressor) 25 mg PO BID ON [facility] Last Admin: 08/31/16 17:51 Dose: 25 mg Pantoprazole Sodium (Protonix Ec Tab) 40 mg PO 0600 ON [facility] Last Admin: 09/01/16 05:35 Dose: 40 mg Potassium Chloride (K-Dur 20 Meq Er Tab) 20 meq PO BRK ON [facility] OF [facility] Last Admin: 08/31/16 08:23 Dose: 20 meq Risperidone (Risperdal Tab) 0.25 mg PO [facility] PRN Reason: Protocol Last Admin: 08/31/16 21:41 Dose: 0.25 mg Sertraline HCl (Zoloft) 50 mg PO DAILY ON [facility] OF [facility] Last Admin: 08/31/16 09:53 Dose: 50 mg Tamsulosin HCl (Flomax) 0.4 mg PO QPM ON [facility] OF [facility] Last Admin: 08/31/16 17:51 Dose: 0.4 mg - Labs Labs: 09/01/16 06:30 09/01/16 06:30 PT 12.7 Seconds (9.9-11.8) H 08/25/16 14:30 INR 1.18 (0.93-1.08) H 08/25/16 14:30 APTT 29.3 Seconds (23.7-30.8) 08/25/16 14:30 Assessment and Plan - Assessment and Plan (Free Text) Assessment: Fever/Lethergy/R/O infection Hyponatremia Depression S/P AVR/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 Lacy FITZPATRICK to chair as millicent/PT Rx for depression, possible psych eval. Monitor labs, I/O, sats., cultures, etc. Will follow.
[2016-09-01] MEDS: Insulin Lispro (humaLOG) LOW Coverage SC SCH ×4 (08:29→23:02)
[2016-09-01] MEDS: Insulin Lispro 1 UNITS/0.01 ML SC SCH ×3 (08:45→17:11)
[2016-09-01] MEDS: Potassium Chloride 20 mEq ER Tab PO SCH (08:46)
--- NOTE | 2016-09-01 09:13 | CARD ---
APPROVED REPORT EXAM: Two-dimensional and M-mode echocardiogram with Doppler and color Doppler. INDICATION Infection:Rule out subacute bacterial endocarditis , S/P AVR, PPM 2D DIMENSIONS Left Atrium (2D)4.4 (1.6-4.0cm)IVSd1.2 (0.7-1.1cm) LVDd4.0 (3.9-5.9cm)PWd1.2 (0.7-1.1cm) LVDs2.9 (2.5-4.0cm)FS (%) 27.6 % LVEF (%)55.0 (>50%) M-Mode DIMENSIONS Aortic Root2.60 (2.2-3.7cm)Aortic Cusp Exc.1.90 (1.5-2.0cm) Aortic Valve AoV Peak Pmbixrza813.0cm/Bettina Peak GR.17mmHg Mitral Valve MV E Hvqgdgbd03.1cm/sMV A Dltzzrrp09.2cm/sE/A ratio1.3 TDI E/Lateral E'0.0E/Medial E'0.0 Tricuspid Valve TR Peak Damiircn094fa/sRAP [id number] Peak Gr.24mmHg [id number] LEFT VENTRICLE The left ventricle is normal size. There is mild concentric left ventricular hypertrophy. Left ventricle systolic function is normal. Abnormal septal motion c/w post-op. state. RIGHT VENTRICLE The right ventricle is normal size. ATRIA The left atrium is mildly dilated. The right atrium size is normal. The interatrial septum is intact with no evidence for an atrial septal defect. AORTIC VALVE There is a bioprosthetic aortic valve prosthesis. It appears normal. MITRAL VALVE The mitral valve is normal in structure. Mitral regurgitation is trace to mild. TRICUSPID VALVE The tricuspid valve is normal in structure. There is moderate tricuspid regurgitation. PULMONIC VALVE The pulmonary valve is normal in structure. There is trace pulmonic valvular regurgitation. GREAT VESSELS The aortic root is normal in size. PERICARDIAL EFFUSION Left pleural effusion present There is no pericardial effusion. <Conclusion> The left ventricle is normal size. There is mild concentric left ventricular hypertrophy. Left ventricle systolic function is normal. Abnormal septal motion c/w post-op. state. There is a bioprosthetic aortic valve prosthesis. It appears normal. Mitral regurgitation is trace to mild. There is moderate tricuspid regurgitation. There is a left pleural effusion present
[2016-09-01] MEDS: Insulin Detemir 100 units/ml Vial (Levemir) SC SCH ×2 (09:32→22:00)
--- NOTE | 2016-09-01 09:57 | CP.PCM.PN ---
Subjective - Date & Time of Evaluation Date of Evaluation: 09/01/16 Time of Evaluation: 09:00 - Subjective Subjective: No complaints PE: elderly male lying in bed Vital Signs: Reviewed HEENT: NC, AT, JENNIFER Neck: supple, no JVD, no bruit Lungs: B/L equal air entry, ronchi CVS: S1 S2 RRR, no murmur Abd: soft, non-distended, non-tender, bowel sounds present EXT: No edema Labs: reviewed Assessment and Plan: 1. 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 KOBE superimposed on CKD3- slowly resolving 3. Leukocytosis, HCA infection suspected 4. NIDDM 5. Hypertension 6. CAD, recent CABG/AVR 7. Anemia 1. Continue lasix 2. Keep O>I 3. Replace K 4. Dose all antibiotics for CrCl ~ 30ml/min 5. Monitor finger sticks and continue insulin coverage 6. PT Objective - Vital Signs/Intake and Output Vital Signs (last 24 hours): Temp Pulse Resp BP Pulse Ox 98.2 F 72 20 133/54 L 97 09/01/16 06:00 09/01/16 09:31 09/01/16 06:00 09/01/16 09:31 09/01/16 06:00 Intake and Output: 09/01/16 09/01/16 06:59 18:59 Intake Total 780 Output Total 675 Balance 105 - Medications Medications: Current Medications Amiodarone HCl (Cordarone) 200 mg PO DAILY [facility] Last Admin: 09/01/16 09:30 Dose: 200 mg Docusate Sodium (Colace) 100 mg PO BID [facility] Last Admin: 09/01/16 09:30 Dose: 100 mg Doxycycline Hyclate (Doryx) 100 mg PO Q12 [facility] PRN Reason: Protocol Stop: 09/06/16 22:01 Last Admin: 09/01/16 09:30 Dose: 100 mg Furosemide (Lasix) 40 mg IVP DAILY [facility] Last Admin: 09/01/16 09:31 Dose: 40 mg Meropenem 1g/NS 100mL IVPB (Meropenem 1g/Ns 100ml Ivpb) 1 gm in 100 mls @ 100 mls/hr IVPB Q8 [facility] PRN Reason: Protocol Stop: 09/06/16 14:01 Last Admin: 09/01/16 05:36 Dose: 100 mls/hr Insulin Detemir (Levemir) 10 unit SC HS [facility] Last Admin: 08/31/16 21:43 Dose: 10 unit Insulin Detemir (Levemir) 9 unit SC QAM [facility] Last Admin: 09/01/16 09:32 Dose: 9 unit Insulin Human Lispro (Humalog) 14 units SC AC [facility] Last Admin: 09/01/16 08:45 Dose: 14 units Insulin Human Lispro (Humalog Low) 0 units SC ACHS [facility] PRN Reason: Protocol Last Admin: 09/01/16 08:29 Dose: Not Given Levothyroxine Sodium (Synthroid) 25 mcg PO 0600 [facility] Last Admin: 09/01/16 05:35 Dose: 25 mcg Metoprolol Tartrate (Lopressor) 25 mg PO BID [facility] Last Admin: 09/01/16 09:31 Dose: 25 mg Pantoprazole Sodium (Protonix Ec Tab) 40 mg PO 0600 [facility] Last Admin: 09/01/16 05:35 Dose: 40 mg Potassium Chloride (K-Dur 20 Meq Er Tab) 20 meq PO BRK [facility] Last Admin: 09/01/16 08:46 Dose: 20 meq Risperidone (Risperdal Tab) 0.25 mg PO HS [facility] PRN Reason: Protocol Last Admin: 08/31/16 21:41 Dose: 0.25 mg Sertraline HCl (Zoloft) 50 mg PO DAILY [facility] Last Admin: 09/01/16 09:31 Dose: 50 mg Tamsulosin HCl (Flomax) 0.4 mg PO QPM [facility] Last Admin: 08/31/16 17:51 Dose: 0.4 mg - Labs Labs: 09/01/16 06:30 09/01/16 06:30 PT 12.7 Seconds (9.9-11.8) H 08/25/16 14:30 INR 1.18 (0.93-1.08) H 08/25/16 14:30 APTT 29.3 Seconds (23.7-30.8) 08/25/16 14:30
--- NOTE | 2016-09-01 10:43 | CP.PCM.PN ---
Subjective - Date & Time of Evaluation Date of Evaluation: 09/01/16 Time of Evaluation: 09:55 - Subjective Subjective: Comfortable in bed, breathing better, not in distress, afebrile overnight. Objective - Vital Signs/Intake and Output Vital Signs (last 24 hours): Temp Pulse Resp BP Pulse Ox 98.2 F 66 20 133/54 L 97 09/01/16 06:00 09/01/16 06:00 09/01/16 06:00 09/01/16 06:00 09/01/16 06:00 Intake and Output: 09/01/16 09/01/16 06:59 18:59 Intake Total 780 Output Total 675 Balance 105 - Medications Medications: Current Medications Amiodarone HCl (Cordarone) 200 mg PO DAILY [facility] Last Admin: 08/31/16 09:53 Dose: 200 mg Docusate Sodium (Colace) 100 mg PO BID [facility] Last Admin: 08/31/16 17:51 Dose: 100 mg Doxycycline Hyclate (Doryx) 100 mg PO Q12 [facility] PRN Reason: Protocol Stop: 09/06/16 22:01 Last Admin: 08/31/16 21:42 Dose: 100 mg Furosemide (Lasix) 40 mg IVP DAILY [facility] Last Admin: 08/31/16 09:53 Dose: 40 mg Meropenem 1g/NS 100mL IVPB (Meropenem 1g/Ns 100ml Ivpb) 1 gm in 100 mls @ 100 mls/hr IVPB Q8 [facility] PRN Reason: Protocol Stop: 09/06/16 14:01 Last Admin: 09/01/16 05:36 Dose: 100 mls/hr Insulin Detemir (Levemir) 10 unit SC HS [facility] Last Admin: 08/31/16 21:43 Dose: 10 unit Insulin Detemir (Levemir) 9 unit SC QAM [facility] Last Admin: 08/31/16 09:54 Dose: 9 unit Insulin Human Lispro (Humalog) 14 units SC AC [facility] Last Admin: 08/31/16 17:51 Dose: 14 units Insulin Human Lispro (Humalog Low) 0 units SC ACHS [facility] PRN Reason: Protocol Last Admin: 08/31/16 21:45 Dose: Not Given Levothyroxine Sodium (Synthroid) 25 mcg PO 0600 [facility] Last Admin: 09/01/16 05:35 Dose: 25 mcg Metoprolol Tartrate (Lopressor) 25 mg PO BID [facility] Last Admin: 08/31/16 17:51 Dose: 25 mg Pantoprazole Sodium (Protonix Ec Tab) 40 mg PO 0600 [facility] Last Admin: 09/01/16 05:35 Dose: 40 mg Potassium Chloride (K-Dur 20 Meq Er Tab) 20 meq PO BRK [facility] Last Admin: 08/31/16 08:23 Dose: 20 meq Risperidone (Risperdal Tab) 0.25 mg PO HS [facility] PRN Reason: Protocol Last Admin: 08/31/16 21:41 Dose: 0.25 mg Sertraline HCl (Zoloft) 50 mg PO DAILY [facility] Last Admin: 08/31/16 09:53 Dose: 50 mg Tamsulosin HCl (Flomax) 0.4 mg PO QPM [facility] Last Admin: 08/31/16 17:51 Dose: 0.4 mg - Labs Labs: 08/31/16 05:30 09/01/16 06:30 PT 12.7 Seconds (9.9-11.8) H 08/25/16 14:30 INR 1.18 (0.93-1.08) H 08/25/16 14:30 APTT 29.3 Seconds (23.7-30.8) 08/25/16 14:30 - Constitutional Appears: Non-toxic, No Acute Distress - Head Exam Head Exam: NORMAL INSPECTION - ENT Exam ENT Exam: Mucous Membranes Moist - Neck Exam Neck Exam: absent: Lymphadenopathy, Meningismus - Respiratory Exam Respiratory Exam: Decreased Breath Sounds (at the bases with few crackles noted) - Cardiovascular Exam Cardiovascular Exam: +S1, +S2 - GI/Abdominal Exam GI & Abdominal Exam: Soft. absent: Tenderness Assessment and Plan - Assessment and Plan (Free Text) Plan: Assessment Consider sepsis due to bilateral hospital-acquired pneumonia, clinically improving chronic right sided retroperitoneal hematoma CAD S/P CABG and aortic valve replacement (history of aortic stenosis) history of atrial fibrillation chronic renal failure DM BPH hypothyroidism Plan Continue Doxycycline and Merrem (day 5), to complete 4-7 days of therapy - as discussed with Dr. House previously, would prefer 7 days of therapy; cultures have been negative follow up 2D echo results and continue to monitor the patient and trend WBC count
[2016-09-02] MEDS: Levothyroxine 25 MCG TAB PO SCH (05:04)
[2016-09-02] MEDS: Pantoprazole 40 mg EC Tab PO SCH (05:04)
[2016-09-02] MEDS: Meropenem 1g/NS 100mL IVPB 1 GM/100 ML PIGGYBACK IVPB SCH ×3 (05:04→21:27)
--- NOTE | 2016-09-02 07:41 | CP.PCM.PN ---
Subjective - Date & Time of Evaluation Date of Evaluation: 09/02/16 Time of Evaluation: 07:00 - Subjective Subjective: Stable on 2R. No chest pain, SOB. V/S noted. RSR. No fever. PE: Lungs: decreased BS at bases Cor.: S1S2 Abd.: soft Ext.: no edema Neuro: alert I/O= 320/875 Labs pending today ECG 08/26: RSR, PRWP, STTW changes c/w ischemia BC x2 NG at 5 days 08/27 CT A+P noted, Echo: No veg. seen. See report. Objective - Vital Signs/Intake and Output Vital Signs (last 24 hours): Temp Pulse Resp BP Pulse Ox 98.3 F 61 20 131/85 99 09/02/16 05:52 09/02/16 05:52 09/02/16 05:52 09/02/16 05:52 09/02/16 05:52 Intake and Output: 09/02/16 09/02/16 06:59 18:59 Intake Total 320 Output Total 875 Balance -555 - Medications Medications: Current Medications Amiodarone HCl (Cordarone) 200 mg PO DAILY [facility] Last Admin: 09/01/16 09:30 Dose: 200 mg Docusate Sodium (Colace) 100 mg PO BID [facility] Last Admin: 09/01/16 17:10 Dose: 100 mg Doxycycline Hyclate (Doryx) 100 mg PO Q12 [facility] PRN Reason: Protocol Stop: 09/06/16 22:01 Last Admin: 09/01/16 22:16 Dose: 100 mg Furosemide (Lasix) 40 mg IVP DAILY [facility] Last Admin: 09/01/16 09:31 Dose: 40 mg Meropenem 1g/NS 100mL IVPB (Meropenem 1g/Ns 100ml Ivpb) 1 gm in 100 mls @ 100 mls/hr IVPB Q8 [facility] PRN Reason: Protocol Stop: 09/06/16 14:01 Last Admin: 09/02/16 05:04 Dose: 100 mls/hr Insulin Detemir (Levemir) 10 unit SC HS [facility] Last Admin: 09/01/16 22:00 Dose: Not Given Insulin Detemir (Levemir) 9 unit SC QAM [facility] Last Admin: 09/01/16 09:32 Dose: 9 unit Insulin Human Lispro (Humalog) 14 units SC AC [facility] Last Admin: 09/01/16 17:11 Dose: 14 units Insulin Human Lispro (Humalog Low) 0 units SC ACHS [facility] PRN Reason: Protocol Last Admin: 09/01/16 23:02 Dose: Not Given Levothyroxine Sodium (Synthroid) 25 mcg PO 0600 [facility] Last Admin: 09/02/16 05:04 Dose: 25 mcg Metoprolol Tartrate (Lopressor) 25 mg PO BID [facility] Last Admin: 09/01/16 17:09 Dose: 25 mg Pantoprazole Sodium (Protonix Ec Tab) 40 mg PO 0600 [facility] Last Admin: 09/02/16 05:04 Dose: 40 mg Potassium Chloride (K-Dur 20 Meq Er Tab) 20 meq PO BRK [facility] Last Admin: 09/01/16 08:46 Dose: 20 meq Risperidone (Risperdal Tab) 0.25 mg PO HS [facility] PRN Reason: Protocol Last Admin: 09/01/16 22:16 Dose: 0.25 mg Sertraline HCl (Zoloft) 50 mg PO DAILY [facility] Last Admin: 09/01/16 09:31 Dose: 50 mg Tamsulosin HCl (Flomax) 0.4 mg PO QPM [facility] Last Admin: 09/01/16 17:09 Dose: 0.4 mg - Labs Labs: 09/01/16 06:30 09/01/16 06:30 PT 12.7 Seconds (9.9-11.8) H 08/25/16 14:30 INR 1.18 (0.93-1.08) H 08/25/16 14:30 APTT 29.3 Seconds (23.7-30.8) 08/25/16 14:30 Assessment and Plan - Assessment and Plan (Free Text) Assessment: Fever/Lethergy/R/O infection Hyponatremia Depression S/P 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 As per renal, ID, Dr. Lacy FITZPATRICK to chair as millicent/PT/Home soon (declines TCU) CXR today: F/U for pleural effusion Monitor labs, I/O, sats., cultures, etc. Will follow.
[2016-09-02] MEDS: Insulin Lispro (humaLOG) LOW Coverage SC SCH ×4 (08:08→21:41)
[2016-09-02] MEDS: Potassium Chloride 20 mEq ER Tab PO SCH (08:09)
[2016-09-02] MEDS: Insulin Lispro 1 UNITS/0.01 ML SC SCH ×3 (08:09→16:46)
[2016-09-02 08:10] LABS: BASO # 0.03 K/mm3 (0.0-2.0); BASO % 0.2 % (0.0-3.0); EOS # 0.1 (0.0-0.7); EOS % 0.4 % (1.5-5.0); GRAN # 13.41 (1.4-6.5); GRAN % 77.2 % (50.0-68.0); HEMOGLOBIN 10.5 gm/dL (14.0-18.0); LYMPH # 2.4 (1.2-3.4); LYMPH % 13.6 % (22.0-35.0); MEAN CELL VOLUME 90.4 fL (80.0-105.0); MEAN CORPUSCULAR HEMOGLOBIN 28.8 pg (25.0-35.0); MEAN CORPUSCULAR HGB CONC 31.9 g/dl (31.0-37.0); MEAN PLATELET VOLUME 9.5 fl (7.0-11.0); MONO # 1.5 (0.1-0.6); MONO % 8.6 % (1.0-6.0); PLATELET COUNT 286 10^3/uL (120.0-450.0); RBC 3.64 10^6/uL (3.5-6.1); RED CELL DISTRIBUTION WIDTH 17.3 % (11.5-14.5); WHITE BLOOD COUNT 17.4 10^3/ul (4.5-11.0)
--- NOTE | 2016-09-02 08:16 | CARD ---
APPROVED REPORT EKG Measurement Heart [id number] <Conclusion> Sinus rhythm with 1st degree AV block Possible Left atrial enlargement PRWP Anterior MD, old IVCD STTW changes c/w ischemia Prolonged QTc No change
[2016-09-02 08:24] LABS: CALCIUM 8.5 mg/dL (8.4-10.5)
--- NOTE | 2016-09-02 10:11 | CP.PCM.PN ---
Subjective - Date & Time of Evaluation Date of Evaluation: 09/01/16 Time of Evaluation: 09:30 - Subjective Subjective: [place] Island[place] speaking Patient in bed not communicating any concerns as he had in past using some hand gestures. He appears comfortable . We had seen him on past admissions so we are overseeing his primary care on behalf of Dr House. Patient endorsed to me yesterday with plans to conclude 7 days IV antibiotic for possible sepsis/ but leukocytosis felt to be probably due to inflammatory response as no bacterial growth has been evident on cultures. Chart reviewed and vitals and lab trends examined , cosmetic consultant input appreciated and we follow on the periphery for now. No need to communicate changes to family as there are none. Objective - Vital Signs/Intake and Output Vital Signs (last 24 hours): Temp Pulse Resp BP Pulse Ox 98.3 F 61 20 131/85 99 09/02/16 05:52 09/02/16 05:52 09/02/16 05:52 09/02/16 05:52 09/02/16 05:52 Intake and Output: 09/02/16 09/02/16 06:59 18:59 Intake Total 320 Output Total 875 Balance -555 - Medications Medications: Current Medications Amiodarone HCl (Cordarone) 200 mg PO DAILY [facility] Last Admin: 09/01/16 09:30 Dose: 200 mg Docusate Sodium (Colace) 100 mg PO BID [facility] Last Admin: 09/01/16 17:10 Dose: 100 mg Doxycycline Hyclate (Doryx) 100 mg PO Q12 [facility] PRN Reason: Protocol Stop: 09/06/16 22:01 Last Admin: 09/01/16 22:16 Dose: 100 mg Furosemide (Lasix) 40 mg IVP DAILY [facility] Last Admin: 09/01/16 09:31 Dose: 40 mg Meropenem 1g/NS 100mL IVPB (Meropenem 1g/Ns 100ml Ivpb) 1 gm in 100 mls @ 100 mls/hr IVPB Q8 [facility] PRN Reason: Protocol Stop: 09/06/16 14:01 Last Admin: 09/02/16 05:04 Dose: 100 mls/hr Insulin Detemir (Levemir) 10 unit SC HS [facility] Last Admin: 09/01/16 22:00 Dose: Not Given Insulin Detemir (Levemir) 9 unit SC QAM [facility] Last Admin: 09/01/16 09:32 Dose: 9 unit Insulin Human Lispro (Humalog) 14 units SC AC [facility] Last Admin: 09/02/16 08:09 Dose: 14 units Insulin Human Lispro (Humalog Low) 0 units SC ACHS [facility] PRN Reason: Protocol Last Admin: 09/02/16 08:08 Dose: 2 units Levothyroxine Sodium (Synthroid) 25 mcg PO 0600 [facility] Last Admin: 09/02/16 05:04 Dose: 25 mcg Metoprolol Tartrate (Lopressor) 25 mg PO BID [facility] Last Admin: 09/01/16 17:09 Dose: 25 mg Pantoprazole Sodium (Protonix Ec Tab) 40 mg PO 0600 [facility] Last Admin: 09/02/16 05:04 Dose: 40 mg Potassium Chloride (K-Dur 20 Meq Er Tab) 20 meq PO BRK [facility] Last Admin: 09/02/16 08:09 Dose: 20 meq Risperidone (Risperdal Tab) 0.25 mg PO HS [facility] PRN Reason: Protocol Last Admin: 09/01/16 22:16 Dose: 0.25 mg Sertraline HCl (Zoloft) 50 mg PO DAILY [facility] Last Admin: 09/01/16 09:31 Dose: 50 mg Tamsulosin HCl (Flomax) 0.4 mg PO QPM [facility] Last Admin: 09/01/16 17:09 Dose: 0.4 mg - Labs Labs: 09/02/16 07:30 09/02/16 07:30 PT 12.7 Seconds (9.9-11.8) H 08/25/16 14:30 INR 1.18 (0.93-1.08) H 08/25/16 14:30 APTT 29.3 Seconds (23.7-30.8) 08/25/16 14:30 - Constitutional Appears: Non-toxic - Head Exam Head Exam: ATRAUMATIC, NORMAL INSPECTION, NORMOCEPHALIC - Eye Exam Eye Exam: Conjunctival injection, EOMI, Normal appearance, Nystagmus, Periorbital swelling, Periorbital tenderness, PERRL, Scleral icterus Pupil Exam: PERRL - ENT Exam ENT Exam: Mucous Membranes Moist, Normal Exam Additional comments: No thrush - Neck Exam Neck Exam: Full ROM, Normal Inspection - Respiratory Exam Respiratory Exam: NORMAL BREATHING PATTERN Additional comments: but diminished overall and ronchi appreciated at left lower lobe area, no use of accessory respiratory muscles nor any cough - Cardiovascular Exam Cardiovascular Exam: Irregular Rhythm, +S1, +S2, Murmur (audible prosthethic valve click) - GI/Abdominal Exam GI & Abdominal Exam: Soft, Normal Bowel Sounds - Rectal Exam Rectal Exam: Deferred - Extremities Exam Extremities Exam: Full ROM, Normal Inspection Additional comments: trace to +1 edema - Back Exam Back Exam: NORMAL INSPECTION - Neurological Exam Neurological Exam: Alert, Awake Additional comments: cannot test for commands but follows our mimics well - Psychiatric Exam Additional comments: cannot assess - Skin Skin Exam: Dry Additional comments: RN notes some perirectal redness and is applying cream Assessment and Plan (1) Acute kidney injury superimposed on chronic kidney disease Assessment & Plan: Under guidance by Dr Baez... recommendations noted and agreed Status: Acute (2) Hyponatremia Assessment & Plan: some improvent in today but noted assessment of fluid overload , so will defer tx to [facility] Self/ Sasha Status: Acute (3) Leukocytosis (leucocytosis) Assessment & Plan: Etiology infectious/ inflammatory both being addressed and will conclude IV antibiotic 7 day course tomorrow. Family does not chose TCU and will need to allow for 24 hr home care once discharged. Status: Acute (4) Pleural effusion Assessment & Plan: Repeat Chest X Ray and monitor effusions Status: Acute (5) Nontraumatic retroperitoneal hematoma Assessment & Plan: Should have CT as out patient? Status: Chronic (6) Type II diabetes mellitus Assessment & Plan: Appears optimally managed in hospital setting with few additional coverage Status: Chronic - Assessment and Plan (Free Text) Plan: Conclude 7 day antibiotic course and monitor for other changes. no report of diarrhea, no further intervention at this time
[2016-09-02] MEDS: Insulin Detemir 100 units/ml Vial (Levemir) SC SCH ×2 (10:42→21:42)
--- NOTE | 2016-09-02 11:22 | CP.PCM.PN ---
Subjective - Date & Time of Evaluation Date of Evaluation: 09/02/16 Time of Evaluation: 10:40 - Subjective Subjective: Comfortable, afebrile, not in distress. Objective - Vital Signs/Intake and Output Vital Signs (last 24 hours): Temp Pulse Resp BP Pulse Ox 98.3 F 61 20 131/85 99 09/02/16 05:52 09/02/16 05:52 09/02/16 05:52 09/02/16 05:52 09/02/16 05:52 Intake and Output: 09/01/16 09/02/16 18:59 06:59 Intake Total 320 Output Total 875 Balance -555 - Medications Medications: Current Medications Amiodarone HCl (Cordarone) 200 mg PO DAILY [facility] Last Admin: 09/01/16 09:30 Dose: 200 mg Docusate Sodium (Colace) 100 mg PO BID [facility] Last Admin: 09/01/16 17:10 Dose: 100 mg Doxycycline Hyclate (Doryx) 100 mg PO Q12 [facility] PRN Reason: Protocol Stop: 09/06/16 22:01 Last Admin: 09/01/16 22:16 Dose: 100 mg Furosemide (Lasix) 40 mg IVP DAILY [facility] Last Admin: 09/01/16 09:31 Dose: 40 mg Meropenem 1g/NS 100mL IVPB (Meropenem 1g/Ns 100ml Ivpb) 1 gm in 100 mls @ 100 mls/hr IVPB Q8 [facility] PRN Reason: Protocol Stop: 09/06/16 14:01 Last Admin: 09/02/16 05:04 Dose: 100 mls/hr Insulin Detemir (Levemir) 10 unit SC HS [facility] Last Admin: 09/01/16 22:00 Dose: Not Given Insulin Detemir (Levemir) 9 unit SC QAM [facility] Last Admin: 09/01/16 09:32 Dose: 9 unit Insulin Human Lispro (Humalog) 14 units SC AC [facility] Last Admin: 09/01/16 17:11 Dose: 14 units Insulin Human Lispro (Humalog Low) 0 units SC ACHS [facility] PRN Reason: Protocol Last Admin: 09/01/16 23:02 Dose: Not Given Levothyroxine Sodium (Synthroid) 25 mcg PO 0600 [facility] Last Admin: 09/02/16 05:04 Dose: 25 mcg Metoprolol Tartrate (Lopressor) 25 mg PO BID [facility] Last Admin: 09/01/16 17:09 Dose: 25 mg Pantoprazole Sodium (Protonix Ec Tab) 40 mg PO 0600 [facility] Last Admin: 09/02/16 05:04 Dose: 40 mg Potassium Chloride (K-Dur 20 Meq Er Tab) 20 meq PO BRK [facility] Last Admin: 09/01/16 08:46 Dose: 20 meq Risperidone (Risperdal Tab) 0.25 mg PO HS [facility] PRN Reason: Protocol Last Admin: 09/01/16 22:16 Dose: 0.25 mg Sertraline HCl (Zoloft) 50 mg PO DAILY [facility] Last Admin: 09/01/16 09:31 Dose: 50 mg Tamsulosin HCl (Flomax) 0.4 mg PO QPM [facility] Last Admin: 09/01/16 17:09 Dose: 0.4 mg - Labs Labs: 09/01/16 06:30 09/01/16 06:30 PT 12.7 Seconds (9.9-11.8) H 08/25/16 14:30 INR 1.18 (0.93-1.08) H 08/25/16 14:30 APTT 29.3 Seconds (23.7-30.8) 08/25/16 14:30 - Constitutional Appears: Non-toxic, No Acute Distress - Head Exam Head Exam: NORMAL INSPECTION - Neck Exam Neck Exam: absent: Meningismus - Respiratory Exam Respiratory Exam: Decreased Breath Sounds - Cardiovascular Exam Cardiovascular Exam: +S1, +S2 - GI/Abdominal Exam GI & Abdominal Exam: Soft. absent: Tenderness Assessment and Plan - Assessment and Plan (Free Text) Plan: Assessment Consider sepsis due to bilateral hospital-acquired pneumonia, clinically improving chronic right sided retroperitoneal hematoma CAD S/P CABG and aortic valve replacement (history of aortic stenosis) history of atrial fibrillation chronic renal failure DM BPH hypothyroidism Plan Continue Doxycycline and Merrem (day 6), to complete 4-7 days of therapy - patient may be switched to PO Vantin 200 mg BID and PO Doxycycline 100 mg PO BID for another 3-5 days when ready for discharge 2D echo does not show vegetations on the prosthetic aortic valve
[2016-09-02 12:59] LABS: PH,URINE 6.5 (4.7-8.0); URINE BILIRUBIN NEGATIVE (NEGATIVE); URINE BLOOD TRACE-INTACT (NEGATIVE); URINE GLUCOSE (UA) NEGATIVE (NEGATIVE); URINE LEUKOCYTE ESTERASE TRACE Leu/uL (NEGATIVE); URINE NITRATE NEGATIVE (NEGATIVE); URINE PROTEIN NEGATIVE mg/dL (<30 mg/dL); URINE UROBILINOGEN 0.2 E.U./dL (<1 E.U./dL)
[2016-09-02 13:00] LABS: URINE APPEARANCE CLEAR (CLEAR); URINE COLOR YELLOW (YELLOW)
[2016-09-02 19:52] LABS: TROPONIN I 0.01 ng/mL
--- NOTE | 2016-09-02 21:46 | CP.PCM.PN ---
Subjective - Date & Time of Evaluation Date of Evaluation: 09/02/16 Time of Evaluation: 20:00 - Subjective Subjective: Extended note as we were preparing for possible discharge; we had seen patient early on the am and noted there were 4 bm yesterday and at same time a down trend in his hyponatremia. This is so far being considered SIADH given the leukocytosis stressor we opted to discard C diff as a possiblity and asked for expedited sample . We understood from the patient it was not diarrhea, but the note noted early changes of skin and had begun applying cream to the area in the buttocks, confirming more frequent use of the bowels. Continuing to review for further destabilizing factors we opted to encourage physical therapy to have a better idea what to do for patient going home in the am . We are told the patient could not make many steps and physical therapy ceased as he was too fatigued. As ID had recommended IV antibiotic through weekend and family had been appraised by Dr House of the plans last Saturday, our plan was for discharge in the am and took advantage of the time to address these changing factors. The issue was compounded when yesterday, the staff told the daughter he was being transferred to TCU where not one asked the family/ patient of this. The family was dissatisfied and we were unaware of these actions as the daughter directly called Dr House. We were so endorsed for Saturday discharge after conferring between Dr Wagner and Dr Lane. Patient appeared tired in am but had no distress on our rounds. Review of cardio noted clear to go whenever cause for IV antibiotic was concluded . Nephrology recommendations were to continue with limited fluids . Early in the afternoon we were questioned by the in charge nurse practitioner of our plans , not knowing that Dr Lane had just written the patient could be switched on po antibiotic for 5 days so why were we not discharging patient... None of this had been conveyed and we proceeded to contact Neprhologist about the hyponatremia... She responded could be managed with continued oral lasix and follow up his metabolic profile. While we are calling back to inform the daughter that the hospital wished earlier discharge she asked what was the tinoco and why were we calling after 3 pm... I tried to explain to her I was just given this information and asked her if she would take her father home, ( although I truly know the patient should be at subacute setting, but she is too concerned with the ramifications and preferred him home). As the day progressed , and the patient almost collapsed from fatigue as we attempted to evaluate extent of Physical deconditioning, I was advised he had chest pain when i called back to initiate the discharge. We then cancelled the discharge, ordered the cardiac enzymes and EKG and asked them to notify cardio. We do not see the patient stable to go home after complaint of chest pain as he is s/p valve replacement, there is still suspicion of ongoing inflammation via the high leukocytosis and has a retroperitoneal hematoma that probably is by now organized but will need to be closely watched. He is no stable stage to undergo surgery and there have been no more fevers. In our place as PCP, we had received no directive from the hospitalization for the retroperitoneal hematoma to recommend what to follow with them and when. The echo and CT done here havent provided a further clue as to the cause of the leukocytosis . I made my last plea with the daughter who refused to come to the phone when I wanted to inform her to keep him in the hospital overnight given his chest pain complaint and am therefore asking for a clinical overnight watch and serial cardiac enzymes that would explain his chest pain and sudden debility with physio. EKG did not show any acute change Objective - Vital Signs/Intake and Output Vital Signs (last 24 hours): Temp Pulse Resp BP Pulse Ox 97.9 F 69 20 116/72 95 09/02/16 17:03 09/02/16 18:00 09/02/16 17:03 09/02/16 17:43 09/02/16 17:03 Intake and Output: Fluids have been limited as directed by nephro, and fluid overload is managed with furosemide for now.. We have learned the 4 BM/ were not fully but ONE BM as the others were scant discharges present with constipation, resolved with one large BM - Medications Medications: Current Medications Amiodarone HCl (Cordarone) 200 mg PO DAILY [facility] Last Admin: 09/02/16 10:41 Dose: 200 mg Docusate Sodium (Colace) 100 mg PO BID [facility] Last Admin: 09/02/16 17:28 Dose: 100 mg Doxycycline Hyclate (Doryx) 100 mg PO Q12 [facility] PRN Reason: Protocol Stop: 09/06/16 22:01 Last Admin: 09/02/16 10:42 Dose: 100 mg Furosemide (Lasix) 40 mg PO DAILY [facility] Last Admin: 09/02/16 10:44 Dose: Not Given Meropenem 1g/NS 100mL IVPB (Meropenem 1g/Ns 100ml Ivpb) 1 gm in 100 mls @ 100 mls/hr IVPB Q8 [facility] PRN Reason: Protocol Stop: 09/06/16 14:01 Last Admin: 09/02/16 14:05 Dose: 100 mls/hr Insulin Detemir (Levemir) 10 unit SC HS [facility] Last Admin: 09/01/16 22:00 Dose: Not Given Insulin Detemir (Levemir) 9 unit SC QAM [facility] Last Admin: 09/02/16 10:42 Dose: 9 unit Insulin Human Lispro (Humalog) 14 units SC AC [facility] Last Admin: 09/02/16 16:46 Dose: 14 units Insulin Human Lispro (Humalog Low) 0 units SC ACHS [facility] PRN Reason: Protocol Last Admin: 09/02/16 16:46 Dose: 1 units Levothyroxine Sodium (Synthroid) 25 mcg PO 0600 [facility] Last Admin: 09/02/16 05:04 Dose: 25 mcg Metoprolol Tartrate (Lopressor) 25 mg PO BID [facility] Last Admin: 09/02/16 17:43 Dose: 25 mg Pantoprazole Sodium (Protonix Ec Tab) 40 mg PO 0600 [facility] Last Admin: 09/02/16 05:04 Dose: 40 mg Risperidone (Risperdal Tab) 0.25 mg PO [facility] PRN Reason: Protocol Last Admin: 09/01/16 22:16 Dose: 0.25 mg Sertraline HCl (Zoloft) 50 mg PO DAILY [facility] Last Admin: 09/02/16 10:43 Dose: 50 mg Tamsulosin HCl (Flomax) 0.4 mg PO QPM [facility] Last Admin: 09/02/16 17:29 Dose: 0.4 mg - Labs Labs: 09/02/16 07:30 09/02/16 07:30 PT 12.7 Seconds (9.9-11.8) H 08/25/16 14:30 INR 1.18 (0.93-1.08) H 08/25/16 14:30 APTT 29.3 Seconds (23.7-30.8) 08/25/16 14:30 - Constitutional Appears: Chronically Ill - Head Exam Head Exam: ATRAUMATIC, NORMOCEPHALIC - Eye Exam Eye Exam: EOMI, Normal appearance, PERRL - ENT Exam ENT Exam: Mucous Membranes Dry, Normal External Ear Exam - Neck Exam Neck Exam: Normal Inspection - Respiratory Exam Respiratory Exam: Decreased Breath Sounds, Rales, NORMAL BREATHING PATTERN - Cardiovascular Exam Cardiovascular Exam: Irregular Rhythm, +S1, +S2, Murmur - GI/Abdominal Exam GI & Abdominal Exam: Soft, Normal Bowel Sounds - Extremities Exam Extremities Exam: Full ROM, Pedal Edema - Back Exam Back Exam: NORMAL INSPECTION Additional comments: patient understands to roll over to allow for better auscultation of the lungs so we can examine his back without inconvenience - Neurological Exam Neurological Exam: Alert, Awake, CN II-XII Intact - Psychiatric Exam Psychiatric exam: Depressed Additional comments: chronic illness showing its toll - Skin Skin Exam: Intact Assessment and Plan (1) Acute kidney injury superimposed on chronic kidney disease Status: Chronic (2) Hyponatremia Status: Chronic (3) Leukocytosis (leucocytosis) Status: Chronic (4) Pleural effusion Status: Chronic (5) Nontraumatic retroperitoneal hematoma Status: Chronic (6) Type II diabetes mellitus Status: Chronic - Assessment and Plan (Free Text) Assessment: Chest pain reported by staff and perhaps later discarded after translation when family arrived, nevertheless proceeded with enzymes/ ekg and additional observation since patient had severe response to physical therapy trial as reported by RN. Contacted PCP and communicated with patient's daughter in this fashion as she did not want to speak with us, while we can watch the patient overnight Plan: Morning review and disposition to be determined with PCP and patient and family
[2016-09-03] MEDS: Pantoprazole 40 mg EC Tab PO SCH (05:18)
[2016-09-03] MEDS: Meropenem 1g/NS 100mL IVPB 1 GM/100 ML PIGGYBACK IVPB SCH ×2 (05:18→13:56)
[2016-09-03] MEDS: Levothyroxine 25 MCG TAB PO SCH (05:18)
[2016-09-03 06:42] VITALS: O2SAT 98
[2016-09-03 07:30] LABS: TROPONIN I 0.02 ng/mL
[2016-09-03 08:32] LABS: HEMOGLOBIN 10.5 gm/dL (14.0-18.0); MEAN CELL VOLUME 90.7 fL (80.0-105.0); MEAN CORPUSCULAR HEMOGLOBIN 29.6 pg (25.0-35.0); MEAN CORPUSCULAR HGB CONC 32.6 g/dl (31.0-37.0); MEAN PLATELET VOLUME 9.7 fl (7.0-11.0); RBC 3.55 10^6/uL (3.5-6.1); RED CELL DISTRIBUTION WIDTH 17.3 % (11.5-14.5); WHITE BLOOD COUNT 15.6 10^3/ul (4.5-11.0)
[2016-09-03] MEDS: Insulin Lispro 1 UNITS/0.01 ML SC SCH ×2 (08:35→12:45)
[2016-09-03] MEDS: Insulin Lispro (humaLOG) LOW Coverage SC SCH ×2 (08:41→12:46)
--- NOTE | 2016-09-03 08:41 | CP.PCM.PN ---
Subjective - Date & Time of Evaluation Date of Evaluation: 09/03/16 Time of Evaluation: 07:00 - Subjective Subjective: Stable on 2R. No chest pain, SOB. V/S noted. RSR. No fever. PE: Lungs: decreased BS at bases Cor.: S1S2 Abd.: soft Ext.: no edema Neuro: alert I/O= 280/500 Labs pending today. 09/02 labs: WBC = 17,400, H/H = 10.5/32.9, Na+= 128, K+= 5.0, Cr.= 1.4, trop.= 0.01, CK =Nl. ECG 08/26: RSR, PRWP, STTW changes c/w ischemia BC x2 NG at 5 days 08/27 CT A+P noted, Echo: No veg. seen. See report. Objective - Vital Signs/Intake and Output Vital Signs (last 24 hours): Temp Pulse Resp BP Pulse Ox 98.5 F 74 18 127/71 98 09/03/16 06:00 09/03/16 06:00 09/03/16 06:00 09/03/16 06:00 09/03/16 06:00 Intake and Output: 09/03/16 09/03/16 06:59 18:59 Intake Total 200 280 Output Total 500 Balance 200 -220 - Medications Medications: Current Medications Amiodarone HCl (Cordarone) 200 mg PO DAILY [facility] Last Admin: 09/02/16 10:41 Dose: 200 mg Docusate Sodium (Colace) 100 mg PO BID [facility] Last Admin: 09/02/16 17:28 Dose: 100 mg Doxycycline Hyclate (Doryx) 100 mg PO Q12 [facility] PRN Reason: Protocol Stop: 09/06/16 22:01 Last Admin: 09/02/16 21:26 Dose: 100 mg Furosemide (Lasix) 40 mg PO DAILY [facility] Last Admin: 09/02/16 10:44 Dose: Not Given Meropenem 1g/NS 100mL IVPB (Meropenem 1g/Ns 100ml Ivpb) 1 gm in 100 mls @ 100 mls/hr IVPB Q8 [facility] PRN Reason: Protocol Stop: 09/06/16 14:01 Last Admin: 09/03/16 05:18 Dose: 100 mls/hr Insulin Detemir (Levemir) 10 unit SC [facility] Last Admin: 09/02/16 21:42 Dose: Not Given Insulin Detemir (Levemir) 9 unit SC QAM [facility] Last Admin: 09/02/16 10:42 Dose: 9 unit Insulin Human Lispro (Humalog) 14 units SC AC [facility] Last Admin: 09/02/16 16:46 Dose: 14 units Insulin Human Lispro (Humalog Low) 0 units SC ACHS [facility] PRN Reason: Protocol Last Admin: 09/02/16 21:41 Dose: Not Given Levothyroxine Sodium (Synthroid) 25 mcg PO 0600 [facility] Last Admin: 09/03/16 05:18 Dose: 25 mcg Metoprolol Tartrate (Lopressor) 25 mg PO BID [facility] Last Admin: 09/02/16 17:43 Dose: 25 mg Pantoprazole Sodium (Protonix Ec Tab) 40 mg PO 0600 [facility] Last Admin: 09/03/16 05:18 Dose: 40 mg Risperidone (Risperdal Tab) 0.25 mg PO HS [facility] PRN Reason: Protocol Last Admin: 09/02/16 21:27 Dose: 0.25 mg Sertraline HCl (Zoloft) 50 mg PO DAILY [facility] Last Admin: 09/02/16 10:43 Dose: 50 mg Tamsulosin HCl (Flomax) 0.4 mg PO QPM [facility] Last Admin: 09/02/16 17:29 Dose: 0.4 mg - Labs Labs: 09/02/16 07:30 09/02/16 07:30 PT 12.7 Seconds (9.9-11.8) H 08/25/16 14:30 INR 1.18 (0.93-1.08) H 08/25/16 14:30 APTT 29.3 Seconds (23.7-30.8) 08/25/16 14:30 Assessment and Plan - Assessment and Plan (Free Text) Assessment: Fever/Lethergy/R/O infection Leukocytosis. Hyponatremia Depression S/P 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 As per renal, ID, Dr. Lacy FITZPATRICK to chair as millicent/PT/Home soon (declines TCU) CXR today: F/U for pleural effusion Monitor labs, I/O, sats., cultures, etc. Will need close out-pt F/U.
[2016-09-03 08:48] LABS: ALB/GLOB RATIO 0.6 (1.1-1.8); ALBUMIN 2.3 g/dL (3.0-4.8); CALCIUM 8.8 mg/dL (8.4-10.5)
[2016-09-03] MEDS: Insulin Detemir 100 units/ml Vial (Levemir) SC SCH (09:05)
--- NOTE | 2016-09-03 11:00 | CP.PCM.PN ---
Subjective - Date & Time of Evaluation Date of Evaluation: 09/03/16 Time of Evaluation: 10:20 - Subjective Subjective: Comfortable on a chair, loose bowel movement has improved, breathing better, no fevers overnight. Objective - Vital Signs/Intake and Output Vital Signs (last 24 hours): Temp Pulse Resp BP Pulse Ox 98.5 F 74 18 127/71 98 09/03/16 06:00 09/03/16 06:00 09/03/16 06:00 09/03/16 06:00 09/03/16 06:00 Intake and Output: 09/03/16 09/03/16 06:59 18:59 Intake Total 200 280 Output Total 500 Balance 200 -220 - Medications Medications: Current Medications Amiodarone HCl (Cordarone) 200 mg PO DAILY [facility] Last Admin: 09/02/16 10:41 Dose: 200 mg Docusate Sodium (Colace) 100 mg PO BID [facility] Last Admin: 09/02/16 17:28 Dose: 100 mg Doxycycline Hyclate (Doryx) 100 mg PO Q12 [facility] PRN Reason: Protocol Stop: 09/06/16 22:01 Last Admin: 09/02/16 21:26 Dose: 100 mg Furosemide (Lasix) 40 mg PO DAILY [facility] Last Admin: 09/02/16 10:44 Dose: Not Given Meropenem 1g/NS 100mL IVPB (Meropenem 1g/Ns 100ml Ivpb) 1 gm in 100 mls @ 100 mls/hr IVPB Q8 [facility] PRN Reason: Protocol Stop: 09/06/16 14:01 Last Admin: 09/03/16 05:18 Dose: 100 mls/hr Insulin Detemir (Levemir) 10 unit SC HS [facility] Last Admin: 09/02/16 21:42 Dose: Not Given Insulin Detemir (Levemir) 9 unit SC QAM [facility] Last Admin: 09/02/16 10:42 Dose: 9 unit Insulin Human Lispro (Humalog) 14 units SC AC [facility] Last Admin: 09/03/16 08:35 Dose: 14 units Insulin Human Lispro (Humalog Low) 0 units SC ACHS [facility] PRN Reason: Protocol Last Admin: 09/03/16 08:41 Dose: 3 units Levothyroxine Sodium (Synthroid) 25 mcg PO 0600 [facility] Last Admin: 09/03/16 05:18 Dose: 25 mcg Metoprolol Tartrate (Lopressor) 25 mg PO BID [facility] Last Admin: 09/02/16 17:43 Dose: 25 mg Pantoprazole Sodium (Protonix Ec Tab) 40 mg PO 0600 [facility] Last Admin: 09/03/16 05:18 Dose: 40 mg Risperidone (Risperdal Tab) 0.25 mg PO HS [facility] PRN Reason: Protocol Last Admin: 09/02/16 21:27 Dose: 0.25 mg Sertraline HCl (Zoloft) 50 mg PO DAILY [facility] Last Admin: 09/02/16 10:43 Dose: 50 mg Tamsulosin HCl (Flomax) 0.4 mg PO QPM [facility] Last Admin: 09/02/16 17:29 Dose: 0.4 mg - Labs Labs: 09/03/16 07:20 09/03/16 07:20 PT 12.7 Seconds (9.9-11.8) H 08/25/16 14:30 INR 1.18 (0.93-1.08) H 08/25/16 14:30 APTT 29.3 Seconds (23.7-30.8) 08/25/16 14:30 - Constitutional Appears: Non-toxic, No Acute Distress - Head Exam Head Exam: NORMAL INSPECTION - ENT Exam ENT Exam: Mucous Membranes Moist - Neck Exam Neck Exam: absent: Lymphadenopathy, Meningismus - Respiratory Exam Respiratory Exam: Decreased Breath Sounds - Cardiovascular Exam Cardiovascular Exam: +S1, +S2 - GI/Abdominal Exam GI & Abdominal Exam: Soft. absent: Tenderness Assessment and Plan - Assessment and Plan (Free Text) Plan: Assessment Consider sepsis due to bilateral hospital-acquired pneumonia, clinically improving chronic right sided retroperitoneal hematoma CAD S/P CABG and aortic valve replacement (history of aortic stenosis) history of atrial fibrillation chronic renal failure DM BPH hypothyroidism Plan Continue Doxycycline and Merrem (day 7), to complete 4-7 days of therapy - patient may be switched to PO Vantin 200 mg BID and PO Doxycycline 100 mg PO BID for another 3-5 days when ready for discharge 2D echo does not show vegetations on the prosthetic aortic valve
--- NOTE | 2016-09-03 11:11 | RAD ---
HISTORY: F/U pl. effusion COMPARISON: 08/25/2016 TECHNIQUE: Chest PA and lateral FINDINGS: LUNGS: No active pulmonary disease. PLEURA: Small left pleural effusion CARDIOVASCULAR: Decrease in vascular congestion. Mild cardiomegaly OSSEOUS STRUCTURES: No significant abnormalities. VISUALIZED UPPER ABDOMEN: Normal. OTHER FINDINGS: Dual lead pacemaker. Sternal wires IMPRESSION: Small left effusion. Decreased vascular congestion
--- NOTE | 2016-09-03 13:00 | CP.PCM.PN ---
Subjective - Date & Time of Evaluation Date of Evaluation: 09/03/16 Time of Evaluation: 10:00 - Subjective Subjective: No complaints, daughter at bedside, no diarrhoea PE: elderly male lying in bed Vital Signs: Reviewed HEENT: NC, AT, JENNIFER Neck: supple, no JVD, no bruit Lungs: B/L equal air entry, ronchi CVS: S1 S2 RRR, no murmur Abd: soft, non-distended, non-tender, bowel sounds present EXT: No edema Labs: reviewed Assessment and Plan: 1. Hyponatremia, suspect secondary to CHF/volume overload, still 127 workup consistent with SIADH improved s/p Tolvaptan / Slowly resolving 2. KOBE superimposed on CKD3- slowly resolving 3. Leukocytosis, HCA infection suspected 4. NIDDM 5. Hypertension 6. CAD, recent CABG/AVR 7. Anemia 8. Hypotghyroidism 1. Continue lasix 2. Keep O>I 3. Replace K 4. Dose all antibiotics for CrCl ~ 30ml/min 5. Monitor finger sticks and continue insulin coverage 6. PT 7. Check TSH 8. No objection to d/c renal standpoint, check labs end of week Objective - Vital Signs/Intake and Output Vital Signs (last 24 hours): Temp Pulse Resp BP Pulse Ox 98.5 F 74 18 127/71 98 09/03/16 06:00 09/03/16 09:07 09/03/16 06:00 09/03/16 09:08 09/03/16 06:00 Intake and Output: 09/03/16 09/03/16 06:59 18:59 Intake Total 200 280 Output Total 500 Balance 200 -220 - Medications Medications: Current Medications Amiodarone HCl (Cordarone) 200 mg PO DAILY [facility] Last Admin: 09/03/16 09:07 Dose: 200 mg Docusate Sodium (Colace) 100 mg PO BID [facility] Last Admin: 09/03/16 09:07 Dose: 100 mg Doxycycline Hyclate (Doryx) 100 mg PO Q12 [facility] PRN Reason: Protocol Stop: 09/06/16 22:01 Last Admin: 09/03/16 09:06 Dose: 100 mg Furosemide (Lasix) 40 mg PO DAILY [facility] Last Admin: 09/03/16 09:08 Dose: 40 mg Meropenem 1g/NS 100mL IVPB (Meropenem 1g/Ns 100ml Ivpb) 1 gm in 100 mls @ 100 mls/hr IVPB Q8 [facility] PRN Reason: Protocol Stop: 09/06/16 14:01 Last Admin: 09/03/16 05:18 Dose: 100 mls/hr Insulin Detemir (Levemir) 10 unit SC HS [facility] Last Admin: 09/02/16 21:42 Dose: Not Given Insulin Detemir (Levemir) 9 unit SC QAM [facility] Last Admin: 09/03/16 09:05 Dose: 9 unit Insulin Human Lispro (Humalog) 14 units SC AC [facility] Last Admin: 09/03/16 12:45 Dose: 14 units Insulin Human Lispro (Humalog Low) 0 units SC ACHS [facility] PRN Reason: Protocol Last Admin: 09/03/16 12:46 Dose: 1 units Levothyroxine Sodium (Synthroid) 25 mcg PO 0600 [facility] Last Admin: 09/03/16 05:18 Dose: 25 mcg Metoprolol Tartrate (Lopressor) 25 mg PO BID [facility] Last Admin: 09/03/16 09:07 Dose: 25 mg Pantoprazole Sodium (Protonix Ec Tab) 40 mg PO 0600 [facility] Last Admin: 09/03/16 05:18 Dose: 40 mg Risperidone (Risperdal Tab) 0.25 mg PO HS [facility] PRN Reason: Protocol Last Admin: 09/02/16 21:27 Dose: 0.25 mg Sertraline HCl (Zoloft) 50 mg PO DAILY [facility] Last Admin: 09/03/16 09:07 Dose: 50 mg Tamsulosin HCl (Flomax) 0.4 mg PO QPM [facility] Last Admin: 09/02/16 17:29 Dose: 0.4 mg - Labs Labs: 09/03/16 07:20 09/03/16 07:20 PT 12.7 Seconds (9.9-11.8) H 08/25/16 14:30 INR 1.18 (0.93-1.08) H 08/25/16 14:30 APTT 29.3 Seconds (23.7-30.8) 08/25/16 14:30
[2016-09-03 15:20] VITALS: BP 100/59; PULSE 76; RESP 20; TEMP 98.7
[2016-09-03] MEDS ORDERED: Cefpodoxime (Vantin) 200 mg Tab PO SCH (22:00)
--- NOTE | 2016-09-04 00:05 | CP.PCM.DIS ---
Provider - Provider Date of Admission: 08/27/16 14:16 Attending physician: Abiola House MD Primary care physician: Abiola House MD Consults: 76 yo male with history recent valve replacement and coronary bypass in June, Time Spent in preparation of Discharge (in minutes): 45 Diagnosis - Discharge Diagnosis (1) Pneumonia of both lower lobes Status: Acute (2) Leukocytosis (leucocytosis) Status: Chronic Comment: probably inflamatory response (3) Hyponatremia Status: Chronic Comment: due to chronic SIADH (4) Anemia Status: Chronic (5) Type II diabetes mellitus Status: Chronic (6) Congestive heart failure with left ventricular systolic dysfunction Status: Chronic (7) Acute kidney injury superimposed on chronic kidney disease Status: Chronic (8) Bilateral pleural effusion Status: Acute (9) Hypertension Status: Chronic (10) Nontraumatic retroperitoneal hematoma Status: Chronic Hospital Course - Lab Results Lab Results: Micro Results 08/30/16 20:45 Sputum Gram Stain - Final 08/30/16 20:45 Sputum Sputum Culture - Final Yeast Species 09/02/16 11:30 Stool C. difficile Antigen & Toxin A,B (M - Final Most Recent Lab Values WBC 15.6 10^3/ul (4.5-11.0) H 09/03/16 07:20 RBC 3.55 10^6/uL (3.5-6.1) 09/03/16 07:20 Hgb 10.5 gm/dL (14.0-18.0) L 09/03/16 07:20 Hct 32.2 % (42.0-52.0) L 09/03/16 07:20 MCV 90.7 fL (80.0-105.0) 09/03/16 07:20 MCH 29.6 pg (25.0-35.0) 09/03/16 07:20 MCHC 32.6 g/dl (31.0-37.0) 09/03/16 07:20 RDW 17.3 % (11.5-14.5) H 09/03/16 07:20 Plt Count 271 10^3/uL (120.0-450.0) 09/03/16 07:20 MPV 9.7 fl (7.0-11.0) 09/03/16 07:20 Gran % 77.2 % (50.0-68.0) H 09/02/16 07:30 Lymph % (Auto) 13.6 % (22.0-35.0) L 09/02/16 07:30 Tate % (Auto) 8.6 % (1.0-6.0) H 09/02/16 07:30 Eos % (Auto) 0.4 % (1.5-5.0) L 09/02/16 07:30 Baso % (Auto) 0.2 % (0.0-3.0) 09/02/16 07:30 Gran # 13.41 (1.4-6.5) H 09/02/16 07:30 Lymph # 2.4 (1.2-3.4) 09/02/16 07:30 Tate # 1.5 (0.1-0.6) H 09/02/16 07:30 Eos # 0.1 (0.0-0.7) 09/02/16 07:30 Baso # 0.03 K/mm3 (0.0-2.0) 09/02/16 07:30 ESR 50 mm/hr (0.00-15.0) H 08/30/16 06:20 PT 12.7 Seconds (9.9-11.8) H 08/25/16 14:30 INR 1.18 (0.93-1.08) H 08/25/16 14:30 APTT 29.3 Seconds (23.7-30.8) 08/25/16 14:30 Sodium 128 mmol/L (132-148) L 09/03/16 07:20 Potassium 4.9 mmol/L (3.6-5.0) 09/03/16 07:20 Chloride 93 mmol/L (98-107) L 09/03/16 07:20 Carbon Dioxide 31 mmol/L (21-33) 09/03/16 07:20 Anion Gap 9 (10-20) L 09/03/16 07:20 BUN 48 mg/dL (7-21) H 09/03/16 07:20 Creatinine 1.6 mg/dL (0.5-1.4) H 09/03/16 07:20 Est GFR ( Amer) 51 09/03/16 07:20 Est GFR (Non-Af Amer) 42 09/03/16 07:20 POC Glucose (mg/dL) 252 mg/dL (65-110) H 09/03/16 07:42 Random Glucose 217 mg/dL (70-110) H 09/03/16 07:20 Uric Acid 3.4 mg/dL (3.5-8.5) L 08/28/16 06:30 Calcium 8.8 mg/dL (8.4-10.5) 09/03/16 07:20 Magnesium 2.0 mg/dL (1.7-2.2) 09/01/16 06:30 Total Bilirubin 0.9 mg/dL (0.2-1.3) 09/03/16 07:20 AST 85 U/L (15-59) H 09/03/16 07:20 ALT 91 U/L (7-56) H 09/03/16 07:20 Alkaline Phosphatase 178 U/L (38-133) H 09/03/16 07:20 Lactate Dehydrogenase 615 U/L (333-699) 09/03/16 05:30 Total Creatine Kinase < 20 U/L (35-230) L 09/03/16 05:30 Troponin I 0.02 ng/mL D 09/03/16 05:30 NT-Pro-B Natriuret Pep 1450 pg/mL (0-450) H 08/31/16 05:46 Total Protein 6.1 g/dL (5.8-8.3) 09/03/16 07:20 Albumin 2.3 g/dL (3.0-4.8) L 09/03/16 07:20 Globulin 3.8 gm/dL 09/03/16 07:20 Albumin/Globulin Ratio 0.6 (1.1-1.8) L 09/03/16 07:20 Procalcitonin 0.34 NG/ML (0.19-0.49) 08/26/16 07:10 Urine Color Yellow (YELLOW) 09/02/16 12:50 Urine Appearance Clear (CLEAR) 09/02/16 12:50 Urine pH 6.5 (4.7-8.0) 09/02/16 12:50 Ur Specific [place] 1.015 (1.005-1.035) 09/02/16 12:50 Urine Protein Negative mg/dL (<30 mg/dL) 09/02/16 12:50 Urine Glucose (UA) Negative mg/dL (NEGATIVE) 09/02/16 12:50 Urine Ketones Negative mg/dL (NEGATIVE) 09/02/16 12:50 Urine Blood Trace-intact (NEGATIVE) H 09/02/16 12:50 Urine Nitrate Negative (NEGATIVE) 09/02/16 12:50 Urine Bilirubin Negative (NEGATIVE) 09/02/16 12:50 Urine Urobilinogen 0.2 E.U./dL (<1 E.U./dL) 09/02/16 12:50 Ur Leukocyte Esterase Trace Michelle/uL (NEGATIVE) H 09/02/16 12:50 Urine RBC 5 - 10 /hpf (0-2) 09/02/16 12:50 Urine WBC 2 - 5 /hpf (0-6) 09/02/16 12:50 Ur Epithelial Cells 6 - 8 /hpf (0-5) 09/02/16 12:50 Urine Osmolality 310 mosm/kg (50-645) 08/28/16 21:15 Ur Random Sodium 93 meq/L 08/28/16 21:15 - Hospital Course Hospital Course: 76 yo male with history of aortic valve replacement and coronary bypass surgery in June , warfarin related retroperitoneal bleeding, readmitted due to fever . He was found to have bilateral lung infiltrations consistent with pneumonia. Laboratory tests showed chronic leukocytosis persistent despite antibiotic therapy.The etiology of elevated WBC was unclear, possibly inflamatory . Blood and urine cultures were negative. His condition however improved during hospitalization. He was afebrile with good appetite. Laboratory test showed chronic hyponatremia consistent with SIADH. Ct scan of abdomen showed stable , persistent retroperitoneal hematoma. Discharge Exam - Head Exam Head Exam: NORMOCEPHALIC - Eye Exam Eye Exam: Normal appearance Pupil Exam: NORMAL ACCOMODATION, PERRL - ENT Exam ENT Exam: Mucous Membranes Moist, Normal Oropharynx - Neck Exam Neck exam: Full Rom - Respiratory Exam Respiratory Exam: Decreased Breath Sounds - Cardiovascular Exam Cardiovascular Exam: Clicks, REGULAR RHYTHM - GI/Abdominal Exam GI & Abdominal Exam: Normal Bowel Sounds, Soft - Extremities Exam Extremities exam: full ROM - Back Exam Back exam: rash noted - Neurological Exam Neurological exam: Alert, CN II-XII Intact, Oriented x3 - Psychiatric Exam Psychiatric exam: Depressed - Skin Skin Exam: Normal Color, Warm Discharge Plan - Discharge Medications Prescriptions: RX: Doxycycline Hyclate [Doryx] 100 mg PO BID #14 cap RX: Cefpodoxime [Vantin] 200 mg PO Q12 5 Days - Follow Up Plan Condition: STABLE Instructions: Sepsis (GEN), Bacterial Pneumonia (DC) Additional Instructions: Dr. Walden authorizes discharge to home and has sent prescriptions for Vantin 200 mg twice daily by mouth and Doryx 100 mg twice daily by mouth. Get these prescriptions filled as soon as possible. Take time to read through the discharge instructions as they contain important information about you hospital visit. If you experience any difficult breathing, unusual bleeding, temperature over 100F, severe pain, change in mental status or any worsening of your condition, contact the nearest emergency room immediately. Please check the room for all your belongings before leaving. Referrals: Abiola Sparks MD [Primary Care Provider] -
--- NOTE | 2016-09-05 13:26 | CP.PCM.CON ---
History of Present Illness - History of Present Illness History of Present Illness: 76 year old man, well known to us, presents with recent cardiac surgery. He was recently admitted to [facility] for bypass surgery and valve replacement. His aortic valve was replaced. Since that time, he has had a fairly stormy course. He was transferred to Sub Acute facility for rehabilitation but had to be readmitted to near [facility]. He was discharged from there a week or so ago and was transferred to [facility]. He was discharged from there just several days ago. He was brought in by his family for weakness, fatigue, malaise, and fever. There is no evidence of documented fever, since admission. He is seen lying in bed on Telemetry. Little information. He denies any complains. His Urdu is somewhat limited. He states he has no CP and denies any dyspnea. Prior to surgery he was fairly robust and appeared to be motivated to recover well, but appears to become depressed with time. He was seen by psychiatrist and started on an antidepressant. Review of Systems - Review of Systems Systems not reviewed;Unavailable: Other (Review of System is limited, not contributory after the examination.) - Constitutional Constitutional: As Per HPI - Cardiovascular Cardiovascular: absent: Chest Pain - Respiratory Respiratory: absent: Dyspnea Past Patient History - Past Medical History & Family History Past Medical History?: Yes - Past Social History Smoking Status: Never Smoked Alcohol: None Home Situation {Lives}: With Family - CARDIAC Hx Cardiac Disorders: Yes (CABG 06/25/16@[facility]; Ablation/CABG/ Valave Replacement. Hx: Aortic Stenosis.) Hx Congestive Heart Failure: Yes (Developed after CABG) Hx Hypertension: Yes - PULMONARY Hx Chronic Obstructive Pulmonary Disease (COPD): No - NEUROLOGICAL HX Cerebrovascular Accident: No - HEENT Hx HEENT Problems: No Hx Blind: No Hx Cataracts: No Hx Glaucoma: No Hx Macular Degeneration: No - RENAL Hx Chronic Kidney Disease: Yes (Stage III CKD. Right kidney atrophied.) Hx Kidney Stones: No - ENDOCRINE/METABOLIC Hx Diabetes Mellitus Type 2: Yes Hx Hypothyroidism: Yes - HEMATOLOGICAL/ONCOLOGICAL Hx Blood Disorders: No - INTEGUMENTARY Hx Dermatological Problems: No - MUSCULOSKELETAL/RHEUMATOLOGICAL Hx Musculoskeletal Disorders: Yes Hx Falls: Yes - GASTROINTESTINAL Hx Gastrointestinal Disorders: No Hx Constipation: Yes - GENITOURINARY/GYNECOLOGICAL Hx Genitourinary Disorders: Yes Hx Prostate Problems: Yes (BPH) Hx Urinary Tract Infection: Yes - PSYCHIATRIC Hx Psychophysiologic Disorder: No Hx Anxiety: Yes Hx Substance Use: No - SURGICAL HISTORY Hx Surgeries: Yes (CABG/Ablation/Valve replacement @ [facility] 06/25/16.) Hx Appendectomy: Yes Hx Open Heart Surgery: Yes (06/25/16 @ [facility].) Hx Valve Replacement: Yes (06/25/16 @ [facility].) Meds Home Medications: Home Medication List Medication Instructions Recorded Confirmed Type Amiodarone Hydrochloride 200 mg PO BID 30 Days 09/03/16 08/25/16 Rx [Cordarone] Aspirin [Aspirin Chewable] 81 mg PO 0800 #0 09/03/16 08/25/16 Rx Cefpodoxime [Vantin] 200 mg PO Q12 5 Days 09/03/16 Rx Cholecalciferol (Vitamin D3) 1,000 unit PO DAILY #2 tab.chew 09/03/16 08/25/16 Rx [Children's Vitamin D3] Docusate Sodium [Colace] 100 mg PO BID #2 capsule 09/03/16 08/25/16 Rx Docusate [Colace] 100 mg PO BID cap 09/03/16 Rx Doxycycline Hyclate [Doryx] 100 mg PO BID #14 cap 09/03/16 Rx Furosemide [Lasix] 40 mg PO DAILY tab 09/03/16 Rx Insulin Detemir [Levemir] 8 unit SC ACBD #0 unit 09/03/16 08/25/16 Rx Insulin Detemir [Levemir] 9 unit SC HS #0 unit 09/03/16 08/25/16 Rx Insulin Detemir [Levemir] 9 unit SC QAM unit 09/03/16 Rx Insulin Detemir [Levemir] 10 unit SC HS unit 09/03/16 Rx Insulin Lispro [humALOG] 14 units SC AC ml 09/03/16 Rx Insulin Lispro [humALOG] 16 units SC AC #0 ml 09/03/16 08/25/16 Rx Levothyroxine [Synthroid] 25 mcg PO 0600 tab 09/03/16 Rx Levothyroxine [Synthroid] 25 mcg PO DAILY #1 tab 09/03/16 08/25/16 Rx Metoprolol Tartrate [Lopressor] 25 mg PO BID tab 09/03/16 Rx Metoprolol Tartrate [Lopressor] 50 mg PO 0800,1800 #0 tab 09/03/16 08/25/16 Rx Multivitamin Therapeutic Tab 1 tab PO DAILY #1 tab 09/03/16 08/25/16 Rx [Thera Tab] Pantoprazole Sodium [Protonix] 40 mg PO DAILY #1 ect 09/03/16 08/25/16 Rx Pantoprazole [Protonix EC Tab] 40 mg PO 0600 ect 09/03/16 Rx Sertraline [Zoloft] 25 mg PO DAILY #0 tab 09/03/16 08/25/16 Rx Sertraline [Zoloft] 50 mg PO DAILY tab 09/03/16 Rx Tamsulosin HCl [Flomax] 0.4 mg PO DAILY #1 cap.er.24h 09/03/16 08/25/16 Rx Tamsulosin [Flomax] 0.4 mg PO QPM cap 09/03/16 Rx risperiDONE [RisperDAL Tab] 0.25 mg PO HS tab 09/03/16 Rx risperiDONE [RisperDAL Tab] 0.25 mg PO HS PRN #0 tab 09/03/16 08/25/16 Rx Allergies/Adverse Reactions: Allergies Allergy/AdvReac Type Severity Reaction Status Date / Time codeine Allergy Unknown URTICARIA Verified 08/20/16 08:36 Physical Exam - Constitutional Appears: Other (He is somewhat depressed appearing.) - Head Exam Head Exam: ATRAUMATIC, NORMOCEPHALIC - Respiratory Exam Respiratory Exam: Rhonchi Additional comments: diminished breath sounds at the base with a few scattered rhonchi - Cardiovascular Exam Cardiovascular Exam: absent: JVD Additional comments: TM displayed laterally, systolic murmur. - GI/Abdominal Exam GI & Abdominal Exam: Normal Bowel Sounds, Soft. absent: Tenderness - Extremities Exam Extremities exam: Negative for: pedal edema Additional comments: No clogging - Neurological Exam Additional comments: No gross motor or sensory deficits noted - Psychiatric Exam Psychiatric exam: Flat Affect - Skin Skin Exam: Dry, Warm - Additional Findings Additional findings: DIAGNOSTIC DATA: White Count: 16.5 Hemoglobin: 9.7 Hematocrit: 29.9 Platelet Count: 326,000 PT: 12.7 PTT: 29.3 Sodium: 127 Potassium: 3.9 BUN: 26 Creatinine: 1.4 Glucose: 228 BNT: 5,520.02 CK: negative LDH: 848 ETOH: 149 CXR: not many changes, a small left flow of fusion is present unchanged from prior left cardiogram is pending. Results - Vital Signs Recent Vital Signs: Last Vital Signs Temp 98.7 F 09/03/16 12:00 Pulse 76 09/03/16 12:00 Resp 20 09/03/16 12:00 BP 100/59 L 09/03/16 12:00 Pulse Ox 98 09/03/16 06:00 - Labs Result Diagrams: 09/03/16 07:20 09/03/16 07:20 - Imaging and Cardiology Chest x-ray Additional comment: not many changes, a small left flow of fusion is present unchanged from prior left cardiogram is pending. Assessment & Plan - Assessment and Plan (Free Text) Assessment: 1) Weakness and reported fever. 2) No obvious source of infection at the present time 3) Bypass surgery and aortic valve replacement 4) Paresis and atrial fibrillation, currently not anticoagulated as he is in sinus rhythm and had developed a large retroperitoneal hematoma spontaneously since surgery. 5) Probable depression Plan: His current cardiac medications will be continued for now. He had previously been on Sotalol and Risperdal. It will be appropriate to resume those at the present time. Blood cultures can be checked at this time. 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 Aggresive physical therapy is neccessary. We will follow up as appropriate. - Date & Time Date: 08/26/16 Time: 10:10
== END 2016-09-03 15:52 | disposition home or self-care (01) | DRG 871 ==
LOC: ED 12:45 → 2RNO 18:32 → OBSVTOIN 08-27 14:16
PROVIDERS: ADMIT Family Medicine; ATTEND Family Medicine
DX: A41.9 Sepsis, unspecified organism (principal); J18.9 Pneumonia, unspecified organism; I50.21 Acute systolic (congestive) heart failure; N17.9 Acute kidney failure, unspecified; K66.1 Hemoperitoneum; N18.3 Chronic kidney disease, stage 3 (moderate); E11.22 Type 2 diabetes mellitus with diabetic chronic kidney disease; I49.5 Sick sinus syndrome; E22.2 Syndrome of inappropriate secretion of antidiuretic hormone; I13.0 Hypertensive heart and chronic kidney disease with heart failure and stage 1 through stage 4 chronic kidney disease, or unspecified chronic kidney disease; R50.9 Fever, unspecified; I25.10 Atherosclerotic heart disease of native coronary artery without angina pectoris; N40.0 Benign prostatic hyperplasia without lower urinary tract symptoms; K59.00 Constipation, unspecified; E03.9 Hypothyroidism, unspecified; I48.0 Paroxysmal atrial fibrillation; Y95 Nosocomial condition; F32.9 Major depressive disorder, single episode, unspecified; D64.9 Anemia, unspecified; Z95.1 Presence of aortocoronary bypass graft; Z95.2 Presence of prosthetic heart valve; Z87.440 Personal history of urinary (tract) infections; Z95.0 Presence of cardiac pacemaker